=== PATIENT | male | born 1980 | race African-American/Black ===

== ENCOUNTER 2016-07-09 08:17 | Emergency (ER) | payer OTHER, MEDICARE ==
[2016-07-09] MEDS ORDERED: PANTOPRAZOLE SODIUM 40 MG VIAL IV ONE (10:45)
[2016-07-09] MEDS ORDERED: ONDANSETRON HCL INJ/PF 4 MG/2 ML SDV IV ONE (10:46)
[2016-07-09] MEDS ORDERED: MORPHINE SULFATE 10 MG/ML INJ IV ONE (10:46)
--- NOTE | 2016-07-09 10:49 | ER Document Report ---
ED GI/ - General Chief Complaint: Upper Abdominal Pain Stated Complaint: STOMACH AND LEG PAIN Mode of Arrival: Ambulatory Information source: Patient Notes: This is a 36-year-old -[place] male with end-stage renal disease and dialysis dependent who presents with upper abdominal pain. He states that his abdominal pain has been off and on for the past month. However today his pain has intensified and become severe. The pain is located in the epigastric and right upper quadrant area and described as a burning and ripping pain. He is not able he has not been able to eat today. He has had nausea but no vomiting today. He states he last had vomiting about a week ago. His bowel movements have been regular and his last bowel movement was 2 days ago. His any fevers. TRAVEL OUTSIDE OF THE [place] IN LAST 30 DAYS: No - Related Data Allergies/Adverse Reactions: aspirin [Aspirin] Allergy (Severe, Verified 04/17/16 14:47) Anaphylaxis Sulfa (Sulfonamide Antibiotics) Allergy (Severe, Verified 04/17/16 14:47) Anaphylaxis Past Medical History - Social History Smoking Status: Never Smoker Chew tobacco use (# tins/day): No Frequency of alcohol use: None Drug Abuse: None Family History: Reviewed & Not Pertinent Patient has suicidal ideation: No Patient has homicidal ideation: No - Past Medical History Cardiac Medical History: Reports: Hx Hypercholesterolemia, Hx Hypertension Pulmonary Medical History: Reports: Hx Asthma, Hx Bronchitis, Hx Sleep Apnea Neurological Medical History: Denies: Hx Seizures Endocrine Medical History: Reports: Hx Graves' Disease, Hx Hyperthyroidism, Hx Hypothyroidism Renal/ Medical History: Reports: Hx End Stage Renal Disease, Hx Hemodialysis. Denies: Hx Peritoneal Dialysis GI Medical History: Reports: Hx Gastroesophageal Reflux Disease, Hx Hiatal Hernia Musculoskeltal Medical History: Reports Hx Arthritis - hands, Reports Hx Gout Psychiatric Medical History: Reports: Hx Depression Traumatic Medical History: Reports: Hx Fractures - right ankle Past Surgical History: Reports: Hx Kidney (Renal Surgery), Hx Vascular Surgery - AV fistula. Denies: Hx Pacemaker - Immunizations Hx Diphtheria, Pertussis, Tetanus Vaccination: No Hx Pneumococcal Vaccination: 06/02/10 Review of Systems - Review of Systems Notes: REVIEW OF SYSTEMS: CONSTITUTIONAL : Denies fever, chills, or sweats. Denies recent illness. EENT: Denies eye, ear, throat, or mouth pain or symptoms. Denies nasal or sinus congestion. CARDIOVASCULAR: Denies chest pain. RESPIRATORY: Denies cough, cold, or chest congestion. Denies shortness of breath, difficulty breathing, or wheezing. GASTROINTESTINAL: As per history of present illness GENITOURINARY: No dysuria MUSCULOSKELETAL: Denies neck or back pain or joint pain or swelling. SKIN: Denies rash or skin lesions. HEMATOLOGIC : Denies easy bruising or bleeding. LYMPHATIC: Denies swollen, enlarged glands. NEUROLOGICAL: No headache PSYCHIATRIC: Denies anxiety or stress or depression. ALL OTHER SYSTEMS REVIEWED AND NEGATIVE. Physical Exam - Vital signs Vitals: Temp Pulse Resp BP Pulse Ox 98.3 F 90 20 134/74 H 97 07/09/16 08:31 07/09/16 08:31 07/09/16 08:31 07/09/16 08:31 07/09/16 08:31 - Notes Notes: PHYSICAL EXAMINATION: GENERAL: Well-appearing, obese adult male, pleasant and conversant and in no acute distress. HEAD: Atraumatic, normocephalic. EYES: Pupils equal round and reactive to light, extraocular movements intact, sclera anicteric, conjunctiva are normal. ENT: nares patent, oropharynx clear without exudates. Moist mucous membranes. NECK: Normal range of motion, supple without lymphadenopathy LUNGS: Breath sounds clear to auscultation bilaterally and equal. No wheezes rales or rhonchi. HEART: Regular rate and rhythm without murmurs ABDOMEN: Obese, soft, mild tenderness to palpation in the epigastric area, normal active bowel sounds. There is no guarding rebound or rigidity there is no acute abdomen. EXTREMITIES: Normal range of motion NEUROLOGICAL: No gross focal motor or sensory deficits noted PSYCH: Normal mood, normal affect. SKIN: Warm, Dry, normal turgor, no rashes or lesions noted. Course - Re-evaluation Re-evalutation: 07/09/16 14:29 Patient has been resting comfortably in the emergency department has been sleeping every time that I have gone to reevaluate him. He states that his stomach is feeling a little bit better. We reviewed his lab results as well as his CT scan demonstrates a large hiatal hernia. His lipase today is borderline high, however he has not vomited in the past week and his CT does not show evidence of acute pancreatitis. I suspect that his GI symptoms today are related to his hiatal hernia and his GERD. He is already on a PPI for gastroesophageal reflux disease and I will add an H2 beltran. He is instructed to follow up for dialysis tomorrow as scheduled and follow up with his primary care doc we discussed strict return precautions to include fevers persistent vomiting or any worsening symptoms or concerns, he is very coupled with this plan AND drainage. 07/09/16 22:39 - Vital Signs Vital signs: Temp Pulse Resp BP Pulse Ox 98.0 F 85 16 130/70 H 100 07/09/16 14:58 07/09/16 14:58 07/09/16 14:58 07/09/16 14:58 07/09/16 14:58 - Laboratory Result Diagrams: 07/09/16 11:20 07/09/16 11:20 Laboratory results interpreted by me: 07/09/16 07/09/16 11:20 11:20 RBC 3.72 L Hgb 11.5 L Hct 35.1 L RDW 17.1 H Eosinophils % 10.6 H Potassium 5.3 H Chloride 94 L BUN 40 H Creatinine 16.12 H Est GFR ( Amer) 4 L Est GFR (Non-Af Amer) 3 L Glucose 70 L Total Protein 9.0 H Lipase 340.6 H - Diagnostic Test Radiology reviewed: Reports reviewed Discharge - Discharge Clinical Impression: Hiatal hernia with GERD, End stage chronic kidney disease, Dyspepsia Condition: Stable Disposition: HOME, SELF-CARE Additional Instructions: Reflux Disease (GERD) Gastro-Esophageal Reflux Disease (GERD) is caused by stomach acid refluxing back up into the esophagus. The valve at the end of the esophagus may be weak. This is common in persons with a hiatal hernia. GERD symptoms can include indigestion, chest pain, heartburn, or food "sticking." Certain foods, alcohol, and aspirin can make GERD worse. Treatment depends on the severity. Usually, antacids or acid-suppressing medicines are used. When the esophagus is acutely inflamed, the physician will often prescribe membrane-protective drugs such as Carafate. Some patients benefit from medication such as Reglan that tightens the valve at the top of the stomach. Avoid those foods that bring on your symptoms. For many people, these foods are coffee, chocolate, onions, garlic, and carbonated drinks. Don't use alcohol, aspirin, caffeine, or tobacco. Don't eat late at night -- within 4 hours of bedtime. Don't over-eat. If necessary, elevate the head of your bed about 4 inches so that stomach acid will not roll up into your esophagus. Call the doctor if you develop severe chest pain, inability to swallow fluids, fever, or worsening symptoms. ABDOMINAL PAIN: There are many causes of abdominal pain. Pain can mean a serious problem requiring surgery (such as appendicitis). It can also be an innocent problem that goes away on its own (such as a viral infection). Often, time must pass to determine the cause of pain. The physician does not feel that hospitalization is necessary, at present. Things may change within the next 24 hours. Call the doctor or come back for re- examination if any problems occur, such as: (1) Pain that becomes more severe, steady, or becomes concentrated in one specific area. Also, pain that is more severe with movement or coughing. (2) Vomiting that persists or becomes more frequent. (3) Blood in the vomitus, urine, or bowel movements. Blood in the stool may have a tarry or black appearance. (4) Shaking chills or fever greater than 100 degrees F. (5) The abdomen becomes more distended or swollen. (6) Bowel movements cease. (7) Failure to improve as expected. PAIN MEDICATION INJECTION: You have received an injection of a pain medication. You should experience significant pain relief within 45 minutes. This drug is a narcotic - - it will impair your judgement, slow your reaction time and make you sleepy ( as well as relieve your pain). Narcotics also can cause nausea. You should not drive, work with machinery, or perform any task requiring mental alertness until all effects of the medication are gone -- six to eight hours. Do not take any alcohol, or sedatives, and do not take any other medication without checking with your physician. ANTINAUSEA MEDICATION: You have been given a medication to suppress nausea and vomiting. This type of medication can be given as a shot, pill, or suppository. It will usually last for many hours. Pills and shots usually last six to eight hours, suppositories last about 12 hours. For the typical illness, only one or two doses of the medication may be necessary. Mild lightheadedness may occur. This type of medicine can cause drowsiness. Do not drive or operate dangerous machinery while under its influence. Do not mix with alcohol. See your doctor at once if you have muscle spasms or tightness, or uncontrollable motions (particularly of the neck, mouth, or jaw). Persistent vomiting or severe lightheadedness should also be evaluated by the physician. FOLLOW-UP CARE: If you have been referred to a physician for follow-up care, call the physician s office for an appointment as you were instructed or within the next two days. If you experience worsening or a significant change in your symptoms, notify the physician immediately or return to the Emergency Department at any time for re-evaluation. FOLLOW-UP CARE: You should return for re-evaluation in 12 hours. This follow-up visit is important. If you are unable to return, or feel that the return visit is unnecessary, please call us. Prescriptions: Promethazine HCl [Phenergan 25 mg Tablet] 1 tab PO Q6H PRN #15 tablet PRN Reason: Ranitidine HCl [Zantac 150 mg Tablet] 150 mg PO BID #60 tablet Referrals: AICHA HERNANDEZ DO [Primary Care Provider] - Follow up as needed
[2016-07-09 11:49] LABS: ABSOLUTE EOSINOPHILS # (AUTO) 0.5 10^3/uL (0.0-0.6); ABSOLUTE MONOCYTES (AUTO) 0.3 10^3/uL (0.1-1.4); ABSOLUTE NEUT (AUTO) 3.2 10^3/uL (1.7-8.2); BASOPHILS % (AUTO) 0.4 % (0-2); EOSINOPHILS % (AUTO) 10.6 % (0-6); HEMATOCRIT 35.1 % (37.9-51.0); HEMOGLOBIN 11.5 g/dL (13.5-17.0); HGB HCT DIFFERENCE -0.6; LYMPHOCYTES % (AUTO) 19.4 % (13-45); MEAN CORPUSCULAR HEMOGLOBIN 30.9 pg (27.0-33.4); MEAN CORPUSCULAR HGB CONC 32.8 g/dL (32.0-36.0); MEAN CORPUSCULAR VOLUME 94 fl (80-97); MONOCYTES % (AUTO) 5.7 % (3-13); RED BLOOD COUNT 3.72 10^6/uL (4.35-5.55); RED CELL DISTRIBUTION WIDTH 17.1 % (11.5-14.0); SEGMENTED NEUTROPHILS % (AUTO) 63.9 % (42-78); WHITE BLOOD COUNT 5.1 10^3/uL (4.0-10.5)
[2016-07-09 12:36] LABS: ALANINE AMINOTRANSFERASE 21 U/L (21-72); ALBUMIN 4.8 g/dL (3.5-5.0); ALKALINE PHOSPHATASE 64 U/L (38-126); ANION GAP 19 (5-19); ASPARTATE AMINO TRANSFERASE 38 U/L (17-59); BILIRUBIN,TOTAL 0.7 mg/dL (0.2-1.3); BLOOD UREA NITROGEN 40 mg/dL (7-20); CALCIUM 9.5 mg/dL (8.4-10.2); CARBON DIOXIDE 29 mmol/L (22-30); CHLORIDE 94 mmol/L (98-107); GLUCOSE 70 mg/dL (75-110); LIPASE 340.6 U/L (23-300); POTASSIUM 5.3 mmol/L (3.6-5.0); SODIUM 142.4 mmol/L (137-145)
[2016-07-09 12:37] LABS: CREATININE RESULT 16.12 mg/dL (0.52-1.25)
[2016-07-09] MEDS ORDERED: METOCLOPRAMIDE HCL ORAL SOLN 10 MG/10 ML UDCUP PO ONE (14:05)
[2016-07-09] MEDS ORDERED: LIDOCAINE 2% VISCOUS SOLN 20 ML UDCUP PO ONE (14:05)
[2016-07-09] MEDS ORDERED: MAG HYDROX/AL HYDROX/SIMETH SUSP 30 ML UDCUP PO ONE (14:05)
[2016-07-09 15:00] VITALS: BP 130/70
== END 2016-07-09 14:59 | disposition home or self-care (01) ==
LOC: ER 08:17
DX: K44.9 Diaphragmatic hernia without obstruction or gangrene (principal); K21.9 Gastro-esophageal reflux disease without esophagitis; N18.6 End stage renal disease; R10.13 Epigastric pain; R10.10 Upper abdominal pain, unspecified; M79.606 Pain in leg, unspecified
CPT/HCPCS: 99284; 96374; 96375; 36415; 83690; 85025; 80053; 74176; J3490; S0164; J2405

== ENCOUNTER → 2016-07-29 | Outpatient (CLI) | payer MEDICARE ==
--- NOTE | 2016-07-30 12:21 | XCELERA REPORT ---
[address] [address] Lower Extremity Venous Evaluation Name: CLAUDIA ALLRED Age: 36 yrs Gender: Male : 1980 Patient Status: Outpatient Patient Location: Study Date: 07/29/2016 04:26 PM Procedure: Color flow and duplex imaging bilaterally of the veins of the lower extremities as well as the Common Femoral veins. Reason For Study: PAIN, SWELLING Ordering Physician: PETRONA COATES Performed By: Love Mendoza Right Sided Venous Evaluation Normal vessel filling wall to wall, compression and augmentation as well as Colour flow down to the infrageniculate veins. Left Sided Venous Evaluation Normal vessel filling wall to wall, compression and augmentation as well as Colour flow down to the infrageniculate veins. Interpretation Summary No duplex evidence of DVT or obstruction in the bilateral lower extremities. : PETRONA COATES > Cas Mcpherson
== END ==
LOC: SP 16:20
PROVIDERS: ATTEND Nurse Practitioner Family
DX: R22.40 Localized swelling, mass and lump, unspecified lower limb (principal)
CPT/HCPCS: 93970

== ENCOUNTER 2016-09-12 08:24 | Emergency (ER) | payer MEDICARE ==
--- NOTE | 2016-09-12 09:19 | ER Document Report ---
ED Hip Pain/Injury - General Chief Complaint: Hip Pain Stated Complaint: FALL/RIGHT SIDE HIP PAIN Time seen by provider: 09:15 Mode of Arrival: Ambulatory Information source: Patient Notes: 36-year-old man presents to ED for pain in his right hip and right calf. He states he fell last night his right and didn't feel bad and then this morning the hip feels much worse. He also has a knot was painful to the back of his right calf. TRAVEL OUTSIDE OF THE [place] IN LAST 30 DAYS: No - HPI Patient complains to provider of: Injury, Pain, Flank, Hip, Other - Painful knot in right calf Occurred: Yesterday Where: Home Onset/Duration: Sudden Quality of pain: Burning, Pressure, Sharp Severity: Severe Pain Level: 5 Context: Fell/tripped Symptoms prior to fall: None Symptoms since fall: None Skin Color: Normal Rotation of extremity: None Pain with palpation of the pelvis: Yes Associated Symptoms: None - Related Data Allergies/Adverse Reactions: aspirin [Aspirin] Allergy (Severe, Verified 09/12/16 09:45) Anaphylaxis Sulfa (Sulfonamide Antibiotics) Allergy (Severe, Verified 09/12/16 09:45) Anaphylaxis Past Medical History - General Information source: Patient - Social History Smoking Status: Never Smoker Cigarette use (# per day): No Chew tobacco use (# tins/day): No Smoking Education Provided: No Frequency of alcohol use: None Drug Abuse: None Occupation: disabled Lives with: Family Family History: Arthritis, CAD, COPD, CVA, Hyperlipidemia, Hypertension, Malignancy - Past Medical History Cardiac Medical History: Reports: Hx Hypercholesterolemia, Hx Hypertension Pulmonary Medical History: Reports: Hx Asthma, Hx Bronchitis, Hx Sleep Apnea EENT Medical History: Reports: None Neurological Medical History: Reports: None Endocrine Medical History: Reports: Hx Hypothyroidism Renal/ Medical History: Reports: Hx End Stage Renal Disease, Hx Hemodialysis Malignancy Medical History: Reports None GI Medical History: Reports: Hx Gastroesophageal Reflux Disease, Hx Hiatal Hernia, Hx Colonoscopy Musculoskeltal Medical History: Reports Hx Arthritis - hands, Reports Hx Gout, Reports Hx Musculoskeletal Deformity - Degenerative joint disease Skin Medical History: Reports None Psychiatric Medical History: Reports: None, Hx Depression Traumatic Medical History: Reports: Hx Fractures - right ankle Infectious Medical History: Reports: None Past Surgical History: Reports: Hx Kidney (Renal Surgery), Hx Vascular Surgery - AV fistula - Immunizations Hx Diphtheria, Pertussis, Tetanus Vaccination: No Hx Pneumococcal Vaccination: 06/02/10 Review of Systems - Review of Systems Constitutional: No symptoms reported EENT: No symptoms reported Cardiovascular: No symptoms reported Respiratory: No symptoms reported Gastrointestinal: No symptoms reported Genitourinary: No symptoms reported Male Genitourinary: No symptoms reported Musculoskeletal: Other - Right hip pain and knot in the right back of the calf Skin: No symptoms reported Hematologic/Lymphatic: No symptoms reported Neurological/Psychological: No symptoms reported -: Yes All other systems reviewed and negative Physical Exam - Vital signs Vitals: Temp Pulse Resp BP Pulse Ox 98.7 F 95 16 114/66 94 09/12/16 08:29 09/12/16 08:29 09/12/16 08:29 09/12/16 08:29 09/12/16 08:29 Interpretation: Normal - General General appearance: Appears well, Alert - HEENT Head: Normocephalic, Atraumatic Eyes: Normal Pupils: PERRL - Respiratory Respiratory status: No respiratory distress Chest status: Nontender Breath sounds: Normal Chest palpation: Normal - Cardiovascular Rhythm: Regular Heart sounds: Normal auscultation Murmur: No - Abdominal Inspection: Normal Distension: No distension Bowel sounds: Normal Tenderness: Nontender Organomegaly: No organomegaly - Back Back: Normal, Nontender - Extremities General upper extremity: Normal inspection, Nontender, Normal color, Normal ROM , Normal temperature General lower extremity: Normal temperature, Normal weight bearing Hip: Tender, Pain with ROM. No: Abrasion, Deformity, Dislocation, Ecchymosis, Instability, Laceration, Unable to bear weight, Other Calf: Tender - Painful knot to the back of the right calf, Other - Neurological Neuro grossly intact: Yes Cognition: Normal Orientation: AAOx4 Mena Coma Scale Eye Opening: Spontaneous Mena Coma Scale Verbal: Oriented Mena Coma Scale Motor: Obeys Commands Monroe Coma Scale Total: 15 Speech: Normal Motor strength normal: LUE, RUE, LLE, RLE Sensory: Normal - Psychological Associated symptoms: Normal affect, Normal mood - Skin Skin Temperature: Warm Skin Moisture: Dry Skin Color: Normal Course - Re-evaluation Re-evalutation: 09/12/16 11:32 Discussed x-ray and ultrasound with patient. Preliminary Doppler is negative for DVT we'll wait for final results before discharge and patient will be discharged home on a small prescription of Percocet. 09/12/16 16:55 - Vital Signs Vital signs: Temp Pulse Resp BP Pulse Ox 97.9 F 73 18 130/80 H 95 09/12/16 11:30 09/12/16 11:52 09/12/16 11:52 09/12/16 11:52 09/12/16 11:52 - Diagnostic Test Radiology reviewed: Image reviewed, Reports reviewed Discharge - Discharge Clinical Impression: superficial blood clots right calf Fall at home Qualifiers: Encounter type: initial encounter Qualified Code(s): W19.XXXA - Unspecified fall, initial encounter Contusion of right hip Qualifiers: Encounter type: initial encounter Qualified Code(s): S70.01XA - Contusion of right hip, initial encounter Chronic pain Qualifiers: Chronic pain type: other chronic pain Qualified Code(s): G89.29 - Other chronic pain Condition: Stable Disposition: HOME, SELF-CARE Instructions: Family Physicians / Practices Additional Instructions: CONTUSION: Your injury has resulted in a contusion -- a crushing of the deep tissues. No injury to important structures was detected during the physician's exam. Contusions vary in the amount of pain they cause, and in the length of time required for healing. Typically, the area will become bruised, and will remain painful to touch for two or three weeks. However, most patients are back to working and playing within a few days. After the initial period of rest and cold-packs, your symptoms (together with the doctor's recommendations) will determine how rapidly you can get back to full activity. Usually this means "do what feels okay, but don't do things that hurt." If re-examination was recommended, it's important to follow up as instructed. Call the doctor or return any time if pain increases, if swelling becomes severe, if you develop numbness or weakness in an injured extremity, or if any other alarming symptoms occur. ICE PACKS: Apply ice packs frequently against the painful area. Many different schedules are recommended, such as "20 minutes on, 20 minutes off" or "one hour ice, two hours rest." If you need to work, you may need to go longer between ice treatments. You should plan to have the area ice packed AT LEAST one fourth of the time. The ice should be applied over the wrap, tape, or splint, or over a layer of cloth -- not directly against the skin. Some ice bags have a built-in cloth and can be put directly on the skin. WARM PACKS: After approximately two days, apply gentle heat (such as a heating pad or hot water bottle) for about 20 to 30 minutes about every two hours -- at least four times daily. Warmth and elevation will help you make a more rapid recovery , and will ease the pain considerably. Do not use HOT heat, and never apply heat for longer than 30 minutes. The continuous heat can invisibly damage skin and muscles -- even when no burn is seen on the surface. Damaged muscles can make you MORE sore. ORAL NARCOTIC MEDICATION: You have been given a prescription for pain control. This medication is a narcotic. It's best taken with food, as nausea can result if taken on an empty stomach. Don't operate machinery or drive within six hours of taking this medication. Do not combine this medicine with alcohol, or with any medication which can cause sedation (such as cold tablets or sleeping pills) unless you get permission from the physician. Narcotics tend to cause constipation. If possible, drink plenty of fluids and eat a diet high in fiber and fruits. Chronic Pain Control Stress, inactivity, and depression make pain more severe regardless of the cause of the pain. Stress and poor physical condition can cause pain such as headaches and backache. Relaxation: Rest in a quiet place with your eyes closed for 20 minutes twice daily. Concentrate on a pleasant image, or simply "feel" your breathing. Clear your mind. Stress management: Deal with your "stressors." Either take action, or eliminate the stressor from your life. Don't let things hang over you. Accept those things you can't change. Nutrition: Eat small, balanced meals -- don't skip, don't overeat. Meals should be high-carbohydrate, low-sugar, low-fat. Exercise: Exercise helps painful conditions and eases stress. Get 30 minutes of moderate exercise, five days a week. Do an activity that does not flare your pain. Precautions: Pain which continues to disrupt daily activities, or which changes in nature, requires a medical evaluation. Pain Clinic referral is available. We do not manage chronic pain in the Emergency Department. We will try to appropriately help you through an acute flare of your chronic painful condition , but for on-going chronic pain that does not improve, you will need to see your private doctor or paint grinder. We do not provide repeated medication management of chronic painful conditions. If you wish, we can provide the name of local pain management physicians. FOLLOW-UP CARE: If you have been referred to a physician for follow-up care, call the physician s office for an appointment as you were instructed or within the next two days. If you experience worsening or a significant change in your symptoms, notify the physician immediately or return to the Emergency Department at any time for re-evaluation. Prescriptions: Oxycodone HCl/Acetaminophen [Percocet 5-325 mg Tablet] 1 tab PO TIDP PRN #14 tablet PRN Reason: Referrals: AICHA HERNANDEZ DO [Primary Care Provider] - Follow up as needed
[2016-09-12] MEDS ORDERED: OXYCODONE-ACETAMINOPHEN 5-325 MG TABLET PO ONE (11:25)
[2016-09-12 11:58] VITALS: BP 130/80
== END 2016-09-12 11:54 | disposition home or self-care (01) ==
LOC: ER 08:24
DX: I82.811 Embolism and thrombosis of superficial veins of right lower extremity (principal); S70.01XA Contusion of right hip, initial encounter; G89.29 Other chronic pain; M25.551 Pain in right hip; W19.XXXA Unspecified fall, initial encounter; Y92.009 Unspecified place in unspecified non-institutional (private) residence as the place of occurrence of the external cause; E78.00 Pure hypercholesterolemia, unspecified; E03.9 Hypothyroidism, unspecified; I12.0 Hypertensive chronic kidney disease with stage 5 chronic kidney disease or end stage renal disease; N18.6 End stage renal disease; Z88.6 Allergy status to analgesic agent; Z88.2 Allergy status to sulfonamides; K21.9 Gastro-esophageal reflux disease without esophagitis
CPT/HCPCS: 99284; 93971; 73502; A9270

== ENCOUNTER 2016-10-25 08:01 | Day surgery (SDC) | payer MEDICARE ==
[~2016-10-25 08:01] MED LIST: DIPHENHYDRAMINE HCL 50 MG/ML VIAL ONE; EPINEPHRINE INJ 1 MG/10 ML DISP.SYRIN ONE; FLUMAZENIL INJ 0.5 MG/5 ML VIAL IV ONE; GLUCAGON,HUMAN RECOMB 1 MG INJ ONE; MIDAZOLAM 2 MG/2 ML INJ ONE; NALOXONE HCL INJ/PF 0.4 MG/1 ML SDV ONE; ONDANSETRON HCL INJ/PF 4 MG/2 ML SDV ONE
[2016-10-25] MEDS: FENTANYL CITRATE INJ/PF 100 MCG/2 ML AMPUL ONE ×2 (09:02→09:04)
--- NOTE | 2016-10-25 09:23 | Operative Report ---
Operative Report DATE OF SURGERY: 10/25/16 Operative Report: The risks benefits and alternatives of the procedure explained to the patient in detail and informed consent is obtained. A GIF Olympus video scope was inserted into the patient's mouth and hypopharynx, the esophagus is identified intubated and insufflated, the scope was then advanced through the esophagus stomach and duodenum, retroflexion maneuver is done, the esophagus stomach and first and second portions of the duodenum examined PREOPERATIVE DIAGNOSIS: Epigastric pain. Regurgitation. Dysphagia POSTOPERATIVE DIAGNOSIS: Esophagitis with mild stricture noted. Hiatal hernia. Gastritis status post biopsy with Helicobacter pylori OPERATION: EGD with biopsy SURGEON: BRANDY BEAR ANESTHESIA: Moderate Sedation - 4 mg of Versed, 50 mcg of fentanyl. Conscious sedation monitoring for 30 minutes. TISSUE REMOVED OR ALTERED: Gastric specimen obtained to rule out Helicobacter pylori COMPLICATIONS: None. ESTIMATED BLOOD LOSS: None. INTRAOPERATIVE FINDINGS: As described above. No ulcers noted. PROCEDURE: Patient tolerated procedure well. No immediate postprocedure complications are noted. Patient discharged in good condition. Discharge date 10/25/2016. Discharge diet: Regular. Discharge activity: Regular. 2-3 week follow-up to discuss findings. We will wait on biopsies. Patient is instructed to call the office or proceed to the emergency room should there be any further problems or questions.
[2016-10-25 10:50] VITALS: BP 140/89
== END 2016-10-25 10:35 | disposition home or self-care (01) ==
LOC: END 08:01
PROVIDERS: ATTEND Internal Medicine Gastroenterology
PROC: 0DB68ZX Excision of Stomach, Via Natural or Artificial Opening Endoscopic, Diagnostic (ICD-10-PCS; principal; 2016-10-25 08:15)
DX: K92.1 Melena (principal); K29.50 Unspecified chronic gastritis without bleeding; K21.0 Gastro-esophageal reflux disease with esophagitis; K22.2 Esophageal obstruction; K44.9 Diaphragmatic hernia without obstruction or gangrene; I12.0 Hypertensive chronic kidney disease with stage 5 chronic kidney disease or end stage renal disease; N18.5 Chronic kidney disease, stage 5; M19.90 Unspecified osteoarthritis, unspecified site; M10.9 Gout, unspecified; M47.9 Spondylosis, unspecified; G43.909 Migraine, unspecified, not intractable, without status migrainosus; Z79.899 Other long term (current) drug therapy; Z99.2 Dependence on renal dialysis
CPT/HCPCS: 43239; 88305 ×2; J2250; J3010; J0171; J1200; J1610; J2310; J2405; J3490

== ENCOUNTER → 2016-11-12 | Outpatient (CLI) | payer MEDICARE ==
--- NOTE | 2016-11-12 13:57 | RADIOLOGY REPORT (SQ) ---
EXAM DESCRIPTION: NM HIDA SCAN WITH CCK COMPLETED DATE/TIME: 11/12/2016 1:07 pm REASON FOR STUDY: RUQ ABDOMINAL PAIN R10.11 RIGHT UPPER QUADRANT PAIN COMPARISON: None. RADIONUCLIDE AND DOSE: DOSAGE RADIONUCLIDE: 5.24 millicuries Tc99m Mebrofenin. DOSAGE CCK: 2.5 micrograms. DOSAGE MORPHINE: Not required. The route of agent administration: Intravenous TECHNIQUE: Serial imaging right upper quadrant up to 60 minutes following injection of radionuclide. CCK injected after gallbladder visualized. LIMITATIONS: None. FINDINGS: LIVER: Normal visualization without areas of photopenia. INTRA AND EXTRAHEPATIC BILE DUCTS: Normal accumulation of activity. GALLBLADDER: Normal visualization. Calculated Ejection Fraction of 11%. Below the normal value of 35 % or greater. PHYSICAL RESPONSE: Patients presenting complaint was reproduced. OTHER: No other significant finding. IMPRESSION: LOW GALLBLADDER EJECTION FRACTION. EVIDENCE FOR BILIARY DYSKINESIS. NO CYSTIC OR COMMO N DUCT OBSTRUCTION. TECHNICAL DOCUMENTATION: JOB ID: [id number] [employer]- All Rights Reserved
== END ==
LOC: RAD 09:37
PROVIDERS: ATTEND Family Medicine
DX: R10.11 Right upper quadrant pain (principal)
CPT/HCPCS: 78227; A9537; Q9969; J2805

== ENCOUNTER → 2016-12-10 | Outpatient (CLI) | payer MEDICARE, MEDICAID ==
--- NOTE | 2016-12-10 14:28 | RADIOLOGY REPORT (SQ) ---
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 RADIONUCLIDE AND DOSE: 21.7 millicuries Tc-99m Sestamibi. The route of agent administration: Intravenous ADDITIONAL DRUGS AND DOSES: None. TECHNIQUE: Early and delayed images of the neck acquired following radionuclide administration. LIMITATIONS: None. FINDINGS: Thyroid: There is minimal uptake in the thyroid gland on immediate images. Parathyroid: No retained activity in the thyroid or elsewhere in the neck to indicate a parathyroid a denoma. Other: No other significant findings. IMPRESSION: Limited uptake within the thyroid gland. No evidence of adenoma. TECHNICAL DOCUMENTATION: JOB ID: [id number] [employer]- All Rights Reserved
== END ==
LOC: RAD 08:31
PROVIDERS: ATTEND Surgery
DX: N25.81 Secondary hyperparathyroidism of renal origin (principal)
CPT/HCPCS: 78070; A9500; Q9969

== ENCOUNTER 2017-02-25 11:38 | Day surgery (SDC) | payer MEDICARE, MEDICAID ==
[~2017-02-25 11:38] MED LIST changes: +FENTANYL CITRATE INJ/PF 100 MCG/2 ML AMPUL ONE; -FLUMAZENIL INJ 0.5 MG/5 ML VIAL IV ONE; +FLUMAZENIL INJ 0.5 MG/5 ML VIAL ONE; -MIDAZOLAM 2 MG/2 ML INJ ONE
[2017-02-25] MEDS: FENTANYL CITRATE INJ/PF 100 MCG/2 ML AMPUL ONE ×2 (12:20→12:25)
[2017-02-25] MEDS: MIDAZOLAM 2 MG/2 ML INJ ONE ×2 (12:21→12:26)
--- NOTE | 2017-02-25 13:09 | Operative Report ---
Operative Report DATE OF SURGERY: 02/25/17 Operative Report: The risks benefits and alternatives of the procedure explained to the patient in detail and informed consent is obtained.A GIF Olympus video scope was inserted into the patient's mouth and hypopharynx, the esophagus is identified intubated and insufflated, the scope was then advanced through the esophagus stomach and duodenum, retroflexion maneuver is done, the esophagus stomach and first and second portions of the duodenum examined PREOPERATIVE DIAGNOSIS: Follow-up on distal esophageal thickening POSTOPERATIVE DIAGNOSIS: Area of distal esophagus looks a little bit thickened and irregular biopsies are obtained. There appears to be a little bit of healing. Continued gastritis biopsies obtained serology to rule out H. pylori OPERATION: EGD with biopsy SURGEON: BRANDY BEAR ANESTHESIA: Moderate Sedation - 3 mg of Versed, 75 mcg of fentanyl. Conscious sedation monitoring time 30 minutes. TISSUE REMOVED OR ALTERED: Gastritis, gastric mucosal specimen obtained. Distal esophageal specimen obtained COMPLICATIONS: None. ESTIMATED BLOOD LOSS: None. INTRAOPERATIVE FINDINGS: As described above. PROCEDURE: Patient tolerated procedure well. No immediate postprocedure complications are noted. Patient discharged in good condition. Discharge date 02/25/2017 Discharge diet: Regular. Discharge activity: Regular. 2-3 week follow-up to discuss findings Patient is instructed to call the office or proceed to the emergency room should there be any further problems or questions. We will follow-up on biopsies. If biopsies are abnormal further recommendations to follow.
[2017-02-25 13:43] VITALS: BP 112/80
== END 2017-02-25 13:40 | disposition home or self-care (01) ==
LOC: END 11:38
PROVIDERS: ATTEND Internal Medicine Gastroenterology
PROC: 0DB58ZX Excision of Esophagus, Via Natural or Artificial Opening Endoscopic, Diagnostic (ICD-10-PCS; 2017-02-25)
PROC: 0DB68ZX Excision of Stomach, Via Natural or Artificial Opening Endoscopic, Diagnostic (ICD-10-PCS; principal; 2017-02-25 12:00)
DX: K22.8 Other specified diseases of esophagus (principal); K29.70 Gastritis, unspecified, without bleeding; Z88.2 Allergy status to sulfonamides
CPT/HCPCS: 43239; 88305 ×2; J2250; J3010; J0171; J1200; J1610; J2310; J2405; J3490

== ENCOUNTER 2017-03-06 10:02 | Day surgery (SDC) | payer MEDICARE, MEDICAID ==
[2017-03-06] MEDS ORDERED: PROPOFOL INJ 200 MG/20 ML VIAL IV ONE (11:37)
[2017-03-06] MEDS ORDERED: ONDANSETRON HCL INJ/PF 4 MG/2 ML SDV ONE (13:02)
[2017-03-06] MEDS ORDERED: MORPHINE SULFATE 10 MG/ML INJ IV PRN (13:29)
[2017-03-06] MEDS ORDERED: PROMETHAZINE HCL INJ 25 MG/1 ML VIAL IV PRN ×2 (13:29)
[2017-03-06] MEDS ORDERED: FENTANYL CITRATE INJ/PF 100 MCG/2 ML AMPUL IV PRN ×3 (13:29)
[2017-03-06] MEDS ORDERED: OXYCODONE-ACETAMINOPHEN 5-325 MG TABLET PO PRN ×2 (13:29)
[2017-03-06] MEDS ORDERED: MEPERIDINE HCL/PF INJ 25 MG/1 ML DISP.SYRIN IV PRN (13:29)
[2017-03-06] MEDS ORDERED: DIPHENHYDRAMINE HCL 50 MG/ML VIAL IV PRN (13:29)
--- NOTE | 2017-03-06 15:15 | Operative Report ---
Operative Report DATE OF SURGERY: 03/06/17 Operative Report: The risks, benefits and alternatives of the procedure including risks of bleeding, perforation requiring surgery are explained to the patient detail and informed consent is obtained. Patient was taken to the operating room and placed in the left, lateral decubital position. Timeout was called. Propofol medications administered. A rectal examination is done which did not reveal any masses, tears or fissures. An Olympus videoscope was inserted to the patient's rectum. It is carefully advanced all the way to the cecum. The cecum was identified by the usual anatomical landmarks including the ileocecal valve as well as the appendiceal office. Photodocumentation is obtained. Scope was then sequentially pulled back via the various segments of the colon including the ascending colon, hepatic flexure, transverse colon, splenic flexure, descending colon finding to the rectosigmoid portions of the colon. Retroflexion maneuvers performed. PREOPERATIVE DIAGNOSIS: Rectal bleeding POSTOPERATIVE DIAGNOSIS: Internal hemorrhoids. Mild right-sided inflammation status post biopsy OPERATION: Colonoscopy with biopsy SURGEON: BRANDY BEAR ANESTHESIA: LMAC TISSUE REMOVED OR ALTERED: Right side colon Specimen obtained COMPLICATIONS: None. ESTIMATED BLOOD LOSS: None. INTRAOPERATIVE FINDINGS: As noted above. PROCEDURE: Patient tolerated procedure well. No immediate postprocedure complications are noted. Patient discharged in good condition. Discharge date 03/06/2017. Discharge diet: Regular. Discharge activity: Regular. 2-3 week follow-up to discuss findings. We will wait on pathology. Pathology. Patient is instructed to call the office or proceed to the emergency room should there be any further problems or questions.
[2017-03-06 15:52] VITALS: BP 126/83
== END 2017-03-06 15:15 | disposition home or self-care (01) ==
LOC: OROUT 10:02
PROVIDERS: ATTEND Internal Medicine Gastroenterology
PROC: 0DBF8ZX Excision of Right Large Intestine, Via Natural or Artificial Opening Endoscopic, Diagnostic (ICD-10-PCS; principal; 2017-03-06 12:00)
DX: K92.1 Melena (principal); K64.8 Other hemorrhoids; K52.9 Noninfective gastroenteritis and colitis, unspecified; I10 Essential (primary) hypertension; G43.909 Migraine, unspecified, not intractable, without status migrainosus; E66.9 Obesity, unspecified; M10.9 Gout, unspecified; K21.9 Gastro-esophageal reflux disease without esophagitis; M19.90 Unspecified osteoarthritis, unspecified site; E03.9 Hypothyroidism, unspecified; I12.0 Hypertensive chronic kidney disease with stage 5 chronic kidney disease or end stage renal disease; N18.5 Chronic kidney disease, stage 5; Z88.6 Allergy status to analgesic agent; Z88.2 Allergy status to sulfonamides; Z68.42 Body mass index [BMI] 45.0-49.9, adult; Z79.899 Other long term (current) drug therapy; Z99.2 Dependence on renal dialysis
CPT/HCPCS: 45380; 36415; 84132; 88305 ×2; J2405; J2704; 810

== ENCOUNTER 2017-03-10 00:18 | Emergency (ER) | payer MEDICARE, MEDICAID ==
--- NOTE | 2017-03-10 02:33 | ER Document Report ---
ED General - General Chief Complaint: Nausea/Vomiting Stated Complaint: WEAKNESS Time Seen by Provider: 03/10/17 01:56 Notes: Patient is a 37-year-old male with past medical history of end-stage renal disease with dialysis dependence who presents with 12 hours of vomiting and diarrhea. States that he has been unable to tolerate oral intake since the onset of the vomiting. He does describe this as being a persistent nausea with vomiting of the contents of what he tried to eat or drink. States his symptoms are worsened after he ate seafood today. He has not tried anything to improve his symptoms. No known sick contacts. Denies any recent history of similar illness. He denies any focal abdominal pain, chest pain, shortness of breath or syncope. No fever. He has had repeated watery bowel movements today. Patient is due for dialysis within the next 4-5 hours. He has not seen his primary care doctor regarding today's concerns. TRAVEL OUTSIDE OF THE [place] IN LAST 30 DAYS: No - Related Data Allergies/Adverse Reactions: aspirin [Aspirin] Allergy (Severe, Verified 02/25/17 11:51) Anaphylaxis Sulfa (Sulfonamide Antibiotics) Allergy (Severe, Verified 02/25/17 11:51) Anaphylaxis Past Medical History - General Information source: Patient - Social History Smoking Status: Never Smoker Frequency of alcohol use: None Drug Abuse: None Family History: Arthritis, CAD, COPD, CVA, Hyperlipidemia, Hypertension, Malignancy Patient has suicidal ideation: No Patient has homicidal ideation: No - Past Medical History Cardiac Medical History: Reports: Hx Hypercholesterolemia, Hx Hypertension Denies: Hx Coronary Artery Disease, Hx Heart Attack Pulmonary Medical History: Reports: Hx Asthma, Hx Bronchitis, Hx Sleep Apnea Denies: Hx COPD, Hx Pneumonia Neurological Medical History: Denies: Hx Cerebrovascular Accident, Hx Seizures Endocrine Medical History: Reports: Hx Hypothyroidism Renal/ Medical History: Reports: Hx End Stage Renal Disease, Hx Hemodialysis, Hx Peritoneal Dialysis GI Medical History: Reports: Hx Gastroesophageal Reflux Disease, Hx Hiatal Hernia, Hx Colonoscopy Musculoskeltal Medical History: Reports Hx Arthritis - hands, HIPS, Reports Hx Gout, Reports Hx Musculoskeletal Deformity - Degenerative joint disease Psychiatric Medical History: Reports: Hx Depression Traumatic Medical History: Reports: Hx Fractures - right ankle Past Surgical History: Reports: Hx Kidney (Renal Surgery), Hx Vascular Surgery - AV fistula - Immunizations Hx Diphtheria, Pertussis, Tetanus Vaccination: No Hx Pneumococcal Vaccination: 06/02/10 Review of Systems - Review of Systems Notes: Constitutional: Negative for fever. HENT: Negative for sore throat. Eyes: Negative for visual changes. Cardiovascular: Negative for chest pain. Respiratory: Negative for shortness of breath. Gastrointestinal: Positive for vomiting and diarrhea Genitourinary: Negative for dysuria. Musculoskeletal: Negative for back pain. Skin: Negative for rash. Neurological: Negative for headaches, weakness or numbness. 10 point ROS negative except as marked above and in HPI. Physical Exam - Vital signs Vitals: Temp Pulse Resp BP Pulse Ox 98.3 F 99 22 H 133/86 H 97 03/10/17 00:54 03/10/17 00:54 03/10/17 00:54 03/10/17 00:54 03/10/17 00:54 Interpretation: Normal Notes: PHYSICAL EXAMINATION: GENERAL: Well-appearing, well-nourished and in no acute distress. HEAD: Atraumatic, normocephalic. EYES: Pupils equal round and reactive to light, extraocular movements intact, sclera anicteric, conjunctiva are normal. ENT: nares patent, oropharynx clear without exudates. Moderately dry mucous membranes. NECK: Normal range of motion, supple without lymphadenopathy LUNGS: Breath sounds clear to auscultation bilaterally and equal. No wheezes rales or rhonchi. HEART: Regular rate and rhythm without murmurs ABDOMEN: Obese abdomen. Soft, nontender, normoactive bowel sounds. No guarding , no rebound. No masses appreciated. EXTREMITIES: Normal range of motion, trace edema in the bilateral lower extremities is equal and symmetric. No cyanosis. NEUROLOGICAL: No focal neurological deficits. Moves all extremities spontaneously and on command. PSYCH: Normal mood, normal affect. SKIN: Warm, Dry, normal turgor, no rashes or lesions noted. Course - Re-evaluation Re-evalutation: 03/10/17 02:32 Presentation of an overall well-appearing patient in no acute distress with complaints of nausea, vomiting, diarrhea. This is consistent with likely viral gastroenteritis. Patient has no abdominal tenderness on exam and specifically no tenderness in the RLQ, LLQ, RUQ. Overall well hydrated on exam. Able to tolerate oral intake here in the emergency department. Low clinical suspicion for any acute life-threatening etiology based on exam and history including acute cholecystitis, SBO, appendicitis, nephrolithiasis, or pylonephritis. CMP without evidence of acute hepatitis. Patient is a dialysis patient and laboratories do show mild hyperkalemia at 6.2. No EKG changes. Patient is due for dialysis less than 3 hours from time of obtaining his labs and I have informed him of the need for dialysis as scheduled due to his hyperkalemia. At this time will discharge with return precautions and follow-up recommendations. Verbal discharge instructions given a the bedside and opportunity for questions given. Medication warnings reviewed. Patient is in agreement with this plan and has verbalized understanding of return precautions and the need for primary care follow-up in the next 24-72 hours. - Vital Signs Vital signs: Temp Pulse Resp BP Pulse Ox 98.3 F 99 14 109/81 96 03/10/17 00:54 03/10/17 00:54 03/10/17 03:11 03/10/17 03:11 03/10/17 03:11 - Laboratory Result Diagrams: 03/10/17 02:27 03/10/17 02:27 Laboratory results interpreted by me: 03/10/17 03/10/17 02:27 02:27 RBC 3.57 L Hgb 11.5 L Hct 34.3 L RDW 18.4 H Seg Neutrophils % 80.7 H Lymphocytes % 6.7 L Eosinophils % 7.5 H Potassium 6.2 H* Chloride 97 L Anion Gap 21 H BUN 40 H Creatinine 15.45 H Est GFR ( Amer) 4 L Est GFR (Non-Af Amer) 4 L Direct Bilirubin 0.7 H AST 16 L Total Protein 9.0 H Albumin 5.3 H Discharge - Discharge Clinical Impression: Hyperkalemia, Vomiting and diarrhea Condition: Good Disposition: HOME, SELF-CARE Additional Instructions: Your symptoms are likely due to a viral illness and should resolve in the next several days. Continue to stay hydrated with plenty of solution such as Gatorade or Pedialyte. You are being sent home with Zofran to take as needed for nausea and vomiting. Please return if you develop severe abdominal pain, pass out, become unable to tolerate any oral fluids for 12 more hours, or any other symptoms that are concerning to you. Referrals: AICHA HERNANDEZ, [Primary Care Provider] - Follow up as needed
[2017-03-10] MEDS ORDERED: ONDANSETRON HCL INJ/PF 4 MG/2 ML SDV IV ONE (02:35)
[2017-03-10 02:37] LABS: ABSOLUTE EOSINOPHILS # (AUTO) 0.6 10^3/uL (0.0-0.6); ABSOLUTE LYMPHOCYTES (AUTO) 0.5 10^3/uL (0.5-4.7); ABSOLUTE MONOCYTES (AUTO) 0.3 10^3/uL (0.1-1.4); ABSOLUTE NEUT (AUTO) 6.1 10^3/uL (1.7-8.2); BASOPHILS % (AUTO) 0.6 % (0-2); EOSINOPHILS % (AUTO) 7.5 % (0-6); HEMATOCRIT 34.3 % (37.9-51.0); HEMOGLOBIN 11.5 g/dL (13.5-17.0); HGB HCT DIFFERENCE 0.2; LYMPHOCYTES % (AUTO) 6.7 % (13-45); MEAN CORPUSCULAR HEMOGLOBIN 32.2 pg (27.0-33.4); MEAN CORPUSCULAR HGB CONC 33.4 g/dL (32.0-36.0); MEAN CORPUSCULAR VOLUME 96 fl (80-97); MONOCYTES % (AUTO) 4.5 % (3-13); RED BLOOD COUNT 3.57 10^6/uL (4.35-5.55); RED CELL DISTRIBUTION WIDTH 18.4 % (11.5-14.0); SEGMENTED NEUTROPHILS % (AUTO) 80.7 % (42-78); WHITE BLOOD COUNT 7.6 10^3/uL (4.0-10.5)
[2017-03-10 02:51] LABS: ALANINE AMINOTRANSFERASE 25 U/L (21-72); ALBUMIN 5.3 g/dL (3.5-5.0); ALKALINE PHOSPHATASE 96 U/L (38-126); ASPARTATE AMINO TRANSFERASE 16 U/L (17-59); BILIRUBIN,DIRECT 0.7 mg/dL (0.0-0.4); BILIRUBIN,TOTAL 0.7 mg/dL (0.2-1.3); BLOOD UREA NITROGEN 40 mg/dL (7-20); CARBON DIOXIDE 26 mmol/L (22-30); CHLORIDE 97 mmol/L (98-107); GLUCOSE 88 mg/dL (75-110); LIPASE 274.4 U/L (23-300)
[2017-03-10 02:57] LABS: CREATININE RESULT 15.45 mg/dL (0.52-1.25)
[2017-03-10 02:58] LABS: POTASSIUM 6.2 mmol/L (3.6-5.0)
[2017-03-10 03:01] LABS: ANION GAP 21 (5-19)
[2017-03-10] MEDS ORDERED: ONDANSETRON ODT 4 MG TAB (6 TAB/DSPK) PO PRN (03:20)
[2017-03-10 03:31] VITALS: BP 109/81
--- NOTE | 2017-03-10 06:23 | EKG REPORT ---
SEVERITY:- NORMAL ECG - SINUS RHYTHM : Confirmed by: Moira Lilly MD 10-Mar-2017 06:22:17
== END 2017-03-10 03:41 | disposition home or self-care (01) ==
LOC: ER 00:18
DX: R11.2 Nausea with vomiting, unspecified (principal); R19.7 Diarrhea, unspecified; E87.5 Hyperkalemia; I12.0 Hypertensive chronic kidney disease with stage 5 chronic kidney disease or end stage renal disease; N18.6 End stage renal disease; Z99.2 Dependence on renal dialysis; J45.909 Unspecified asthma, uncomplicated; Z87.892 Personal history of anaphylaxis; Z88.6 Allergy status to analgesic agent; Z88.2 Allergy status to sulfonamides
CPT/HCPCS: 93005; 99284; 96374; 36415; 83690; 85025; 80053; 93010; J2405; A9270

== ENCOUNTER 2017-05-14 13:36 | Emergency (ER) | payer MEDICARE ==
--- NOTE | 2017-05-14 15:07 | ER Document Report ---
ED ENT - General Chief Complaint: Ear Pain Stated Complaint: EAR PAIN Time Seen by Provider: 05/14/17 14:48 Notes: 37 yo male on dialysis, c/o right ear and right throat pain x 2 days. TRAVEL OUTSIDE OF THE [place] IN LAST 30 DAYS: No - HPI Patient complains to provider of: Ear problem Onset/Duration: Gradual, Persistent Quality of pain: Achy Location of pain: Ears, Throat Associated symptoms: Cough, Sinus drainage, Sore throat, Swollen glands Similar symptoms previously: Yes Recently seen / treated by doctor: Yes - DR Ko - Related Data Allergies/Adverse Reactions: aspirin [Aspirin] Allergy (Severe, Verified 05/14/17 13:38) Anaphylaxis Sulfa (Sulfonamide Antibiotics) Allergy (Severe, Verified 05/14/17 13:38) Anaphylaxis Past Medical History - General Information source: Patient - Social History Smoking Status: Never Smoker Frequency of alcohol use: None Drug Abuse: None Lives with: Family Family History: Arthritis, CAD, COPD, CVA, Hyperlipidemia, Hypertension, Malignancy - Past Medical History Cardiac Medical History: Reports: Hx Hypercholesterolemia, Hx Hypertension Denies: Hx Coronary Artery Disease, Hx Heart Attack Pulmonary Medical History: Reports: Hx Asthma, Hx Bronchitis, Hx Sleep Apnea Denies: Hx COPD, Hx Pneumonia Neurological Medical History: Denies: Hx Cerebrovascular Accident, Hx Seizures Endocrine Medical History: Reports: Hx Hypothyroidism Renal/ Medical History: Reports: Hx End Stage Renal Disease, Hx Hemodialysis, Hx Peritoneal Dialysis GI Medical History: Reports: Hx Gastroesophageal Reflux Disease, Hx Hiatal Hernia, Hx Colonoscopy Musculoskeltal Medical History: Reports Hx Arthritis - hands, HIPS, Reports Hx Gout, Reports Hx Musculoskeletal Deformity - Degenerative joint disease Psychiatric Medical History: Reports: Hx Depression Traumatic Medical History: Reports: Hx Fractures - right ankle Past Surgical History: Reports: Hx Kidney (Renal Surgery), Hx Vascular Surgery - AV fistula - Immunizations Hx Diphtheria, Pertussis, Tetanus Vaccination: No Hx Pneumococcal Vaccination: 06/02/10 Review of Systems - Review of Systems Constitutional: No symptoms reported EENT: See HPI Cardiovascular: No symptoms reported Respiratory: No symptoms reported Gastrointestinal: No symptoms reported Genitourinary: No symptoms reported Male Genitourinary: No symptoms reported Musculoskeletal: No symptoms reported Skin: No symptoms reported Hematologic/Lymphatic: No symptoms reported Neurological/Psychological: No symptoms reported Physical Exam - Vital signs Vitals: Temp Pulse Resp BP Pulse Ox 98.4 F 91 18 116/66 100 05/14/17 13:42 05/14/17 13:42 05/14/17 13:42 05/14/17 13:42 05/14/17 13:42 Interpretation: Normal - General General appearance: Appears well, Alert - HEENT Head: Normocephalic, Atraumatic Eyes: Normal Conjunctiva: Normal Pupils: PERRL Tympanic membrane: Other - right TM dull Pharynx: Normal Neck: Lymphadenopathy - right anterior cervical - Respiratory Respiratory status: No respiratory distress Chest status: Nontender Breath sounds: Normal Chest palpation: Normal - Cardiovascular Rhythm: Regular Heart sounds: Normal auscultation Murmur: No - Abdominal Inspection: Normal Distension: No distension Bowel sounds: Normal Tenderness: Nontender Organomegaly: No organomegaly - Back Back: Normal, Nontender - Extremities General upper extremity: Normal inspection, Nontender, Normal color, Normal ROM , Normal temperature General lower extremity: Normal inspection, Nontender, Normal color, Normal ROM , Normal temperature, Normal weight bearing. No: Janet's sign - Neurological Neuro grossly intact: Yes Cognition: Normal Orientation: AAOx4 [place] Coma Scale Eye Opening: Spontaneous [place] Coma Scale Verbal: Oriented [place] Coma Scale Motor: Obeys Commands [place] Coma Scale Total: 15 Speech: Normal Motor strength normal: LUE, RUE, LLE, RLE Sensory: Normal - Psychological Associated symptoms: Normal affect, Normal mood - Skin Skin Temperature: Warm Skin Moisture: Dry Skin Color: Normal Course - Vital Signs Vital signs: Temp Pulse Resp BP Pulse Ox 98.4 F 91 18 116/66 100 05/14/17 13:42 05/14/17 13:42 05/14/17 13:42 05/14/17 13:42 05/14/17 13:42 Discharge - Discharge Clinical Impression: Lymphadenopathy of right cervical region Condition: Stable Disposition: HOME, SELF-CARE Instructions: Lymphadenopathy (OM), Antibiotic Therapy (OM) Additional Instructions: Take medications as prescribed Your ear is not infected, but your lymph node is swollen which is causing referred pain to your ear follow up with your primary care if pain persists Prescriptions: Amoxicillin 500 mg PO TID #21 tablet
[2017-05-14 15:37] VITALS: BP 106/64
== END 2017-05-14 15:35 | disposition home or self-care (01) ==
LOC: ER 13:36
DX: R59.1 Generalized enlarged lymph nodes (principal); H92.01 Otalgia, right ear; R07.0 Pain in throat
CPT/HCPCS: 99282

== ENCOUNTER 2017-10-10 03:09 | Emergency (ER) | payer MEDICARE, MEDICAID ==
[2017-10-10] MEDS ORDERED: MORPHINE SULFATE IR 15 MG TABLET PO ONE (04:13)
--- NOTE | 2017-10-10 04:28 | ER Document Report ---
ED Extremity Problem, Lower - General Chief Complaint: Leg Pain Stated Complaint: RIGHT LEG PAIN Time Seen by Provider: 10/10/17 04:04 Notes: Patient is a 37 year old male that comes to the ED for chief complaint of right hip, leg, and ankle pain. He states he was getting up and walking earlier in his leg gave out and he heard a couple of pops and he felt sharp pain in his hip and his ankle area. He states he has broken his ankle before, he usually walks with a cane. He denies any other complaints, he denies falling. He denies numbness, incontinence, fever. He is on pain management for DJD ( including for the same hip and leg of concern today). TRAVEL OUTSIDE OF THE [place] IN LAST 30 DAYS: No - Related Data Allergies/Adverse Reactions: aspirin [Aspirin] Allergy (Severe, Verified 05/14/17 13:38) Anaphylaxis Sulfa (Sulfonamide Antibiotics) Allergy (Severe, Verified 05/14/17 13:38) Anaphylaxis Past Medical History - General Information source: Patient - Social History Smoking Status: Never Smoker Frequency of alcohol use: None Drug Abuse: None Lives with: Alone Family History: Arthritis, CAD, COPD, CVA, Hyperlipidemia, Hypertension, Malignancy - Past Medical History Cardiac Medical History: Reports: Hx Hypercholesterolemia, Hx Hypertension Denies: Hx Coronary Artery Disease, Hx Heart Attack Pulmonary Medical History: Reports: Hx Asthma, Hx Bronchitis, Hx Sleep Apnea Denies: Hx COPD, Hx Pneumonia Neurological Medical History: Denies: Hx Cerebrovascular Accident, Hx Seizures Endocrine Medical History: Reports: Hx Hypothyroidism Renal/ Medical History: Reports: Hx End Stage Renal Disease, Hx Hemodialysis, Hx Peritoneal Dialysis GI Medical History: Reports: Hx Gastroesophageal Reflux Disease, Hx Hiatal Hernia, Hx Colonoscopy Musculoskeltal Medical History: Reports Hx Arthritis - hands, HIPS, Reports Hx Gout, Reports Hx Musculoskeletal Deformity - Degenerative joint disease Psychiatric Medical History: Reports: Hx Depression Traumatic Medical History: Reports: Hx Fractures - right ankle Past Surgical History: Reports: Hx Kidney (Renal Surgery), Hx Vascular Surgery - AV fistula - Immunizations Hx Diphtheria, Pertussis, Tetanus Vaccination: No Hx Pneumococcal Vaccination: 06/02/10 Review of Systems - Review of Systems Constitutional: No symptoms reported EENT: No symptoms reported Cardiovascular: No symptoms reported Respiratory: No symptoms reported Gastrointestinal: No symptoms reported Genitourinary: No symptoms reported Male Genitourinary: No symptoms reported Musculoskeletal: See HPI Skin: No symptoms reported Hematologic/Lymphatic: No symptoms reported Neurological/Psychological: No symptoms reported Physical Exam - Vital signs Vitals: Temp Pulse Resp BP Pulse Ox 98.6 F 91 20 132/76 H 96 10/10/17 03:17 10/10/17 03:17 10/10/17 03:17 10/10/17 03:17 10/10/17 03:17 Interpretation: Normal - General General appearance: Appears well In distress: None - HEENT Head: Normocephalic, Atraumatic Eyes: Normal Pupils: PERRL - Respiratory Respiratory status: No respiratory distress Chest status: Nontender Breath sounds: Normal. No: Decreased air movement, Wheezing Chest palpation: Normal - Cardiovascular Rhythm: Regular. No: Tachycardia Heart sounds: Normal auscultation, S1 appreciated, S2 appreciated Murmur: No - Abdominal Inspection: Normal Distension: No distension Bowel sounds: Normal Tenderness: Nontender Organomegaly: No organomegaly - Back Back: Normal, Nontender. No: Tender, CVA tenderness - Extremities General upper extremity: Normal inspection, Nontender, Normal ROM, Normal strength General lower extremity: Other - There is tenderness mainly over the proximal thigh, also mildly in the mid tibia and distal ankle, tenderness mainly over the lateral malleolus of the. No tenderness over the foot. No soft tissue swelling, normal dorsalis pedis and capillary refill, normal distal sensation - Neurological Neuro grossly intact: Yes Cognition: Normal Orientation: AAOx4 [place] Coma Scale Eye Opening: Spontaneous [employer] Coma Scale Verbal: Oriented [employer] Coma Scale Motor: Obeys Commands [place] Coma Scale Total: 15 Speech: Normal Motor strength normal: LUE, RUE, LLE, RLE Sensory: Normal - Psychological Associated symptoms: Normal affect, Normal mood - Skin Skin Temperature: Warm Skin Moisture: Dry Skin Color: Normal Course - Re-evaluation Re-evalutation: Patient with minimal soft tissue swelling at the lateral malleolus of the right ankle, tenderness over the ankle and distal tibia, tenderness over the proximal thigh. Range of motion intact. Normal distal neurovascular exam. No evidence of compartment syndrome. No neurological deficits or reported back symptoms. X -ray is unremarkable, no acute findings. Patient provided with ankle stirrup after discussion, he has a cane already for walking, he is Yuniel on pain management, he requests Lidoderm patches. Discussed follow-up and return precautions, patient states understanding and agreement. - Vital Signs Vital signs: Temp Pulse Resp BP Pulse Ox 98.6 F 91 20 132/76 H 96 10/10/17 03:17 10/10/17 03:17 10/10/17 03:17 10/10/17 03:17 10/10/17 03:17 Procedures - Immobilization Right ankle Pre-Proc Neuro Vasc Exam: Normal Immobilizer type: Jaspal wrap, Ankle stirrup Performed by: PCT Post-Proc Neuro Vasc Exam: Normal Alignment checked and good: Yes Discharge - Discharge Clinical Impression: Right hip pain, Right leg pain Right ankle pain Qualifiers: Chronicity: acute Qualified Code(s): M25.571 - Pain in right ankle and joints of right foot Condition: Stable Disposition: HOME, SELF-CARE Additional Instructions: Your x-rays do not show any concerning new findings, you have some arthritis in your leg as we discussed. Examination is consistent with a sprain of your ankle , recommendation is to use the ankle brace for support, elevate and ice your foot several times a day, continue current medications. You can use the Lidoderm patch, especially over your hip/femur area. Follow-up with your primary care provider. Return for any concerning symptoms including severe swelling or pain. Prescriptions: Lidocaine [Lidoderm 5% (700 mg) Transdermal Patch] 1 patch TP DAILY #30 adh..patch Referrals: AICHA HERNANDEZ DO [Primary Care Provider] - Follow up as needed
--- NOTE | 2017-10-10 05:21 | RADIOLOGY REPORT (SQ) ---
EXAM DESCRIPTION: XR FEMUR 2 VIEWS CLINICAL HISTORY: 37 years Male, injury, pain COMPARISON: None. Findings: Bones, joints, and soft tissues of the right femur appear intact. IMPRESSION: No acute findings.
--- NOTE | 2017-10-10 05:21 | RADIOLOGY REPORT (SQ) ---
EXAM DESCRIPTION: XR TIBIA FIBULA 2 VIEWS CLINICAL HISTORY: 37 years Male, injury, pain COMPARISON: None. Findings: Bones, joints, and soft tissues of the right tibia/fibula appear intact. Atherosclerosis. IMPRESSION: No acute findings.
--- NOTE | 2017-10-10 05:22 | RADIOLOGY REPORT (SQ) ---
EXAM DESCRIPTION: XR ANKLE 2 VIEWS CLINICAL HISTORY: 37 years Male, injury, pain COMPARISON: None. Findings: Bones, joints, and soft tissues of the right ankle appear intact. IMPRESSION: No acute findings.
--- NOTE | 2017-10-10 05:29 | RADIOLOGY REPORT (SQ) ---
EXAM DESCRIPTION: XR HIP 2 VIEWS CLINICAL HISTORY: 37 years Male, injury, pain COMPARISON: None. Findings: Bones, joints, and soft tissues of the right hip/pelvis appear intact. IMPRESSION: No acute findings.
[2017-10-10 07:10] VITALS: BP 120/82
== END 2017-10-10 07:26 | disposition home or self-care (01) ==
LOC: ER 03:09
DX: M16.11 Unilateral primary osteoarthritis, right hip (principal); M25.551 Pain in right hip; M79.604 Pain in right leg; M25.571 Pain in right ankle and joints of right foot; I10 Essential (primary) hypertension; J45.909 Unspecified asthma, uncomplicated; Z87.892 Personal history of anaphylaxis; Z88.6 Allergy status to analgesic agent; Z88.2 Allergy status to sulfonamides
CPT/HCPCS: 99283; 73610; 73552; 73502; 73590; L1902; A9270

== ENCOUNTER 2017-12-11 23:35 | Emergency (ER) | payer MEDICARE, MEDICAID ==
[2017-12-11 23:48] VITALS: BP 147/87
--- NOTE | 2017-12-12 00:03 | ER Document Report ---
ED Medical Screen (RME) - General Chief Complaint: Wrist Pain Stated Complaint: FALL/HAND INJURY Time Seen by Provider: 12/11/17 23:56 Mode of Arrival: Ambulatory Information source: Patient Notes: 37-year-old male presents to ED for complaint of left wrist and hand pain. He has a dialysis patient and fell about 20 minutes before coming to the ED landing on his left hand and wrist. His dialysis fistula he states is much larger in the last 20 minutes since he fell. He states he also has severe pain. He is concerned about his dialysis fistula. There is swelling to the left hand and wrist. Thickening to x-ray for a hand and wrist x-ray. Fistula does have a thrill. I have greeted and performed a rapid initial assessment of this patient. A comprehensive ED assessment and evaluation of the patient, analysis of test results and completion of medical decision making process will be conducted by an additional ED providers. TRAVEL OUTSIDE OF THE [place] IN LAST 30 DAYS: No - Related Data Allergies/Adverse Reactions: aspirin [Aspirin] Allergy (Severe, Verified 05/14/17 13:38) Anaphylaxis Sulfa (Sulfonamide Antibiotics) Allergy (Severe, Verified 05/14/17 13:38) Anaphylaxis Past Medical History - Past Medical History Cardiac Medical History: Reports: Hx Hypercholesterolemia, Hx Hypertension Denies: Hx Coronary Artery Disease, Hx Heart Attack Pulmonary Medical History: Reports: Hx Asthma, Hx Bronchitis, Hx Sleep Apnea Denies: Hx COPD, Hx Pneumonia Neurological Medical History: Denies: Hx Cerebrovascular Accident, Hx Seizures Endocrine Medical History: Reports: Hx Hypothyroidism Renal/ Medical History: Reports: Hx End Stage Renal Disease, Hx Hemodialysis, Hx Peritoneal Dialysis GI Medical History: Reports: Hx Gastroesophageal Reflux Disease, Hx Hiatal Hernia, Hx Colonoscopy Musculoskeltal Medical History: Reports Hx Arthritis - hands, HIPS, Reports Hx Gout, Reports Hx Musculoskeletal Deformity - Degenerative joint disease Psychiatric Medical History: Reports: Hx Depression Traumatic Medical History: Reports: Hx Fractures - right ankle Past Surgical History: Reports: Hx Kidney (Renal Surgery), Hx Vascular Surgery - AV fistula - Immunizations Hx Diphtheria, Pertussis, Tetanus Vaccination: No History of Influenza Vaccine for 03/2017 - 07/2017 Season: No Physical Exam - Vital signs Vitals: Temp Pulse Resp BP Pulse Ox 98.6 F 81 18 147/87 H 94 12/11/17 23:35 12/11/17 23:35 12/11/17 23:35 12/11/17 23:35 12/11/17 23:35 Course - Vital Signs Vital signs: Temp Pulse Resp BP Pulse Ox 98.6 F 81 18 147/87 H 94 12/11/17 23:35 12/11/17 23:35 12/11/17 23:35 12/11/17 23:35 12/11/17 23:35 Doctor's Discharge - Discharge Referrals: AICHA HERNANDEZ DO [Primary Care Provider] - Follow up as needed
--- NOTE | 2017-12-12 00:33 | RADIOLOGY REPORT (SQ) ---
EXAM DESCRIPTION: XR HAND 3 OR MORE VIEWS COMPLETED DATE/TME: 12/11/2017 23:57 CLINICAL HISTORY: 37 years, Male, pain and swelling COMPARISON: None. FINDINGS: 3 views of the left hand. No acute fracture or dislocation. Normal osseous mineralization. Postoperative change overlying the pelvis. IMPRESSION: No acute fracture or dislocation. 2011 [employer]- All Rights Reserved
--- NOTE | 2017-12-12 00:34 | RADIOLOGY REPORT (SQ) ---
EXAM DESCRIPTION: XR WRIST 3 OR MORE VIEWS COMPLETED DATE/TME: 12/11/2017 23:57 CLINICAL HISTORY: 37 years, Male, pain and swelling COMPARISON: None. FINDINGS: 3 views of the left wrist. No acute fracture or dislocation. Normal osseous mineralization. Postoperative change of the left breast. Atherosclerotic vascular calcification. Likely radiocephalic fistula of the wrist. Vascular coil identified. IMPRESSION: No acute fracture identified. 2010 [employer]- All Rights Reserved
[2017-12-12] MEDS ORDERED: OXYCODONE-ACETAMINOPHEN 5-325 MG TABLET PO ONE (00:48)
--- NOTE | 2017-12-12 00:52 | ER Document Report ---
ED General - General Chief Complaint: Wrist Pain Stated Complaint: FALL/HAND INJURY Time Seen by Provider: 12/11/17 23:56 Mode of Arrival: Ambulatory Notes: Patient is a 37-year-old male who fell forward landing onto his left hand and arm. Patient complains of pain into his left palm as well as swelling on his left forearm. Is concerned because his fistula for dialysis in his left arm. Patient says that his hoop machine operator is Dr. Gomes. He gets dialysis Friday. He says Dr. Mix manages his fistula. He denies any numbness or weakness into the left hand. He denies any other injuries. TRAVEL OUTSIDE OF THE [place] IN LAST 30 DAYS: No - Related Data Allergies/Adverse Reactions: aspirin [Aspirin] Allergy (Severe, Verified 05/14/17 13:38) Anaphylaxis Sulfa (Sulfonamide Antibiotics) Allergy (Severe, Verified 05/14/17 13:38) Anaphylaxis Past Medical History - General Information source: Patient - Social History Smoking Status: Never Smoker Chew tobacco use (# tins/day): No Frequency of alcohol use: None Drug Abuse: None Family History: Arthritis, CAD, COPD, CVA, Hyperlipidemia, Hypertension, Malignancy Patient has suicidal ideation: No Patient has homicidal ideation: No - Past Medical History Cardiac Medical History: Reports: Hx Hypercholesterolemia, Hx Hypertension Denies: Hx Coronary Artery Disease, Hx Heart Attack Pulmonary Medical History: Reports: Hx Asthma, Hx Bronchitis, Hx Sleep Apnea Denies: Hx COPD, Hx Pneumonia Neurological Medical History: Denies: Hx Cerebrovascular Accident, Hx Seizures Endocrine Medical History: Reports: Hx Hypothyroidism Renal/ Medical History: Reports: Hx End Stage Renal Disease, Hx Hemodialysis. Denies: Hx Peritoneal Dialysis GI Medical History: Reports: Hx Gastroesophageal Reflux Disease, Hx Hiatal Hernia, Hx Colonoscopy Musculoskeletal Medical History: Reports Hx Arthritis - hands, HIPS, Reports Hx Gout, Reports Hx Musculoskeletal Deformity - Degenerative joint disease Psychiatric Medical History: Reports: Hx Depression Traumatic Medical History: Reports: Hx Fractures - right ankle Past Surgical History: Reports: Hx Kidney (Renal Surgery), Hx Vascular Surgery - AV fistula - Immunizations Hx Diphtheria, Pertussis, Tetanus Vaccination: No Hx Pneumococcal Vaccination: 06/02/10 Review of Systems - Review of Systems Notes: My Normal Review Basic REVIEW OF SYSTEMS: CONSTITUTIONAL : Denies fever, chills, or sweats. Denies recent illness. MUSCULOSKELETAL: Pain and swelling to left forearm and hand. SKIN: Denies rash or skin lesions. NEUROLOGICAL: Denies altered mental status or loss of consciousness. Denies headache. Denies weakness or paralysis or loss of use of either side. Denies problems with gait or speech. Denies sensory or motor loss. ALL OTHER SYSTEMS REVIEWED AND NEGATIVE. Physical Exam - Vital signs Vitals: Temp Pulse Resp BP Pulse Ox 98.6 F 81 18 147/87 H 94 12/11/17 23:35 12/11/17 23:35 12/11/17 23:35 12/11/17 23:35 12/11/17 23:35 - Notes Notes: General Appearance: Well nourished, alert, cooperative, no acute distress, no obvious discomfort. Appearing. Vitals: reviewed, See vital signs table. Extremities: strength 5/5 in all extremities, good pulses in all extremities, patient has fistula left forearm. Fistula does have good palpable thrill. He does have good pulse. Distal hand has good capillary refill. He does have a little bit of swelling into the left palm of his hand consistent with a contusion. I did do a bedside ultrasound looking at the fistula. Bedside ultrasound shows good color Doppler flow throughout the entire tract of the fistula that I can see on my bedside ultrasound. I do not see extravasation of fluid outside of the fistula. Skin: warm, dry, appropriate color, no rash Neuro: speech clear, oriented x 3, normal affect, responds appropriately to questions. Course - Re-evaluation Re-evalutation: 12/12/17 00:50 Patient does have some swelling and soft tissue around the proximal aspect fistula. We do not have vascular ultrasound. I therefore did a bedside ultrasound looking at the patient's fistula. He has good vascular flow on color Doppler throughout the entire tract of the fistula. I do not see any extravasation of fluid. All I see is some soft tissue edema around the fistula without actual extravasation. Patient's fistula care is followed by Dr. Mix. I did call and speak with Dr. Mix this as long as patient is not showing signs of extravasation that I can call and speak with his hoop machine operator and make them aware. If at dialysis they feel that Vicky needs a fistulogram but he can be referred to Dr. Mix for that be performed. His hoop machine operator is Dr. Gomes. I will monitor him for low bit longer. I will recheck his arm again with bedside ultrasound to make sure the continues to be no signs of extravasation. I then will call Dr. Gomes. 12/12/17 04:47 Patient has not had any further increases in swelling. I did do a repeat bedside ultrasound. Continue to not see any extravasation of fluid. Continues have good flow on Doppler of the entire course of the fistula on ultrasound. Patient requests an Jaspal wrap for his hands he still some soreness in his left hand. I did give him an Jaspal wrap. I encourage him to take his home oxycodone for the pain. I did speak with Dr. Gomes, patient's hoop machine operator, who requested the patient not receive heparin today when he does dialysis. I informed the patient to inform the dialysis nurses of this and to have them call Dr. Gomes if they have any further questions. Patient to return to ER if he has increasing swelling, numbness or weakness into the hand, or if he has any further complaints. Dictation of this chart was performed using voice recognition software; therefore, there may be some unintended grammatical errors. 12/12/17 05:35 - Vital Signs Vital signs: Temp Pulse Resp BP Pulse Ox 98.6 F 81 18 147/87 H 94 12/11/17 23:35 12/11/17 23:35 12/11/17 23:35 12/11/17 23:35 12/11/17 23:35 Discharge - Discharge Clinical Impression: Left arm swelling Hand contusion Qualifiers: Encounter type: initial encounter Laterality: left Qualified Code(s): S60.222A - Contusion of left hand, initial encounter Condition: Good Disposition: HOME, SELF-CARE Additional Instructions: Please go to dialysis this am. Please inform the dialysis nurses that Dr. Gomes requests not giving heparin during your dialysis today. Have the dialysis nurses call Dr. Gomes with any further questions. Please return to the ER if you have increasing swelling, numbness or weakness in the hand, or if you have any further concerns. Referrals: AICHA HERNANDEZ DO [Primary Care Provider] -
== END 2017-12-12 05:37 | disposition home or self-care (01) ==
LOC: ER 23:35
DX: S60.222A Contusion of left hand, initial encounter (principal); M79.89 Other specified soft tissue disorders; M79.642 Pain in left hand; Z88.6 Allergy status to analgesic agent; Z88.2 Allergy status to sulfonamides; W19.XXXA Unspecified fall, initial encounter; Y93.9 Activity, unspecified; Y92.9 Unspecified place or not applicable; Y99.9 Unspecified external cause status
CPT/HCPCS: 99284; 73130; 73110; A9270

== ENCOUNTER 2018-02-20 10:17 | Emergency (ER) | payer MEDICARE, MEDICAID ==
[2018-02-20 10:39] VITALS: BP 108/61
[2018-02-20] MEDS ORDERED: LIDOCAINE 1% INJ-PF (10 MG/ML) 30 ML SDV INJ ONE (12:32)
--- NOTE | 2018-02-20 12:38 | ER Document Report ---
ED General - General Chief Complaint: Abscess Stated Complaint: POSSIBLE ABCESS/BACK Time Seen by Provider: 02/20/18 12:02 Notes: 38-year-old -[place] male to emergency department chief complaint of pain and abscess supragluteal area just to the right of the gluteal fold. Symptoms started several days ago. Thinks he may need to have it cut open and drained. Denies any other major symptoms at this time. TRAVEL OUTSIDE OF THE [place] IN LAST 30 DAYS: No - HPI Onset: Last week Onset/Duration: Gradual, Worse Quality of pain: Achy, Throbbing Severity: Moderate Pain Level: 4 - Related Data Allergies/Adverse Reactions: aspirin [Aspirin] Allergy (Severe, Verified 02/20/18 10:18) Anaphylaxis Sulfa (Sulfonamide Antibiotics) Allergy (Severe, Verified 02/20/18 10:18) Anaphylaxis Past Medical History - General Information source: Patient - Social History Smoking Status: Never Smoker Frequency of alcohol use: None Drug Abuse: None Lives with: Family Family History: Arthritis, CAD, COPD, CVA, Hyperlipidemia, Hypertension, Malignancy Patient has suicidal ideation: No Patient has homicidal ideation: No - Past Medical History Cardiac Medical History: Reports: Hx Hypercholesterolemia, Hx Hypertension Denies: Hx Coronary Artery Disease, Hx Heart Attack Pulmonary Medical History: Reports: Hx Asthma, Hx Bronchitis, Hx Sleep Apnea Denies: Hx COPD, Hx Pneumonia Neurological Medical History: Denies: Hx Cerebrovascular Accident, Hx Seizures Endocrine Medical History: Reports: Hx Hypothyroidism Renal/ Medical History: Reports: Hx End Stage Renal Disease, Hx Hemodialysis. Denies: Hx Peritoneal Dialysis GI Medical History: Reports: Hx Gastroesophageal Reflux Disease, Hx Hiatal Hernia, Hx Colonoscopy Musculoskeletal Medical History: Reports Hx Arthritis - hands, HIPS, Reports Hx Gout, Reports Hx Musculoskeletal Deformity - Degenerative joint disease Psychiatric Medical History: Reports: Hx Depression Traumatic Medical History: Reports: Hx Fractures - right ankle Past Surgical History: Reports: Hx Kidney (Renal Surgery), Hx Vascular Surgery - AV fistula - Immunizations Hx Diphtheria, Pertussis, Tetanus Vaccination: No Hx Pneumococcal Vaccination: 06/02/10 Review of Systems - Review of Systems Notes: Constitutional: denies: Chills, Diaphoresis, Fever, Malaise, Weakness EENT: denies: Eye discharge, Blurred vision, Tearing, Double vision, Nose congestion, Nose discharge, Throat swelling, Mouth pain Cardiovascular: denies: Palpitations, Heart racing, Orthopnea, Dyspnea, Chest pain Respiratory: denies: Cough, Hurts to breathe, Wheezing, Shortness of breath Gastrointestinal: denies: Abdominal pain, Diarrhea, Nausea, Vomiting, Black stools, bright red blood in stool Genitourinary: denies: Burning, Dysuria, Discharge, Frequency, Flank pain, Hematuria Musculoskeletal: denies: Joint pain, Joint swelling, Muscle pain, Muscle stiffness, back pain Hematologic/Lymphatic: denies: Anemia, Easy bleeding, Easy bruising, Blood clots Neurological/Psychological: denies: Confusion, Dementia, Depression, Loss of consciousness Skin: Complaining of abscess in the lower back and supragluteal area Physical Exam - Vital signs Vitals: Temp Pulse Resp BP Pulse Ox 98.4 F 88 20 108/61 93 02/20/18 10:38 02/20/18 10:38 02/20/18 10:38 02/20/18 10:38 02/20/18 10:38 Interpretation: Normal - General General appearance: Appears well, Alert - HEENT Head: Normocephalic, Atraumatic Eyes: Normal Pupils: PERRL - Respiratory Respiratory status: No respiratory distress Chest status: Nontender Breath sounds: Normal Chest palpation: Normal - Cardiovascular Rhythm: Regular Heart sounds: Normal auscultation Murmur: No - Abdominal Inspection: Normal Distension: No distension Bowel sounds: Normal Tenderness: Nontender Organomegaly: No organomegaly - Back Back: Normal, Nontender - Extremities General upper extremity: Normal inspection, Nontender, Normal color, Normal ROM , Normal temperature General lower extremity: Normal inspection, Nontender, Normal color, Normal ROM , Normal temperature, Normal weight bearing. No: Janet's sign - Neurological Neuro grossly intact: Yes Cognition: Normal Orientation: AAOx4 Mena Coma Scale Eye Opening: Spontaneous Mena Coma Scale Verbal: Oriented [employer] Coma Scale Motor: Obeys Commands Mena Coma Scale Total: 15 Speech: Normal Motor strength normal: LUE, RUE, LLE, RLE Sensory: Normal - Psychological Associated symptoms: Normal affect, Normal mood - Skin Skin Temperature: Warm Skin Moisture: Dry Skin Color: Normal, Other - Patient has a 2-3 cm painful, red, swollen area on the lower sacral/supragluteal area just to the right of the gluteal fold. Does not appear to track down into the rectum. Course - Re-evaluation Re-evalutation: 02/20/18 12:56 Patient may have an early abscess formation. I did prep the area and went to anesthetize it. There is a large amount of scar tissue with some surrounding erythema. Once area was anesthetized appropriately probed with the needle but only thing I was able to feel with scar tissue. At this time patient requested I stop the procedure. He would like to just try antibiotics. I did not make a large incision at this used a needle incision. Dressings were applied. Patient tolerated procedure well. At this time will give surgery follow-up, antibiotics and pain medication. - Vital Signs Vital signs: Temp Pulse Resp BP Pulse Ox 98.4 F 88 20 108/61 93 02/20/18 10:38 02/20/18 10:38 02/20/18 10:38 02/20/18 10:38 02/20/18 10:38 Discharge - Discharge Clinical Impression: Asya-rectal abscess Condition: Good Disposition: HOME, SELF-CARE Instructions: Abscess ([facility]) Prescriptions: Doxycycline Hyclate 100 mg PO BID #14 capsule Hydrocodone/Acetaminophen [[place] 5-325 mg Tablet] 1 tab PO TID PRN 3 Days #9 tablet PRN Reason: Referrals: AICHA HERNANDEZ DO [Primary Care Provider] - Follow up as needed JANAE RED MD [ACTIVE STAFF] - Follow up in 1 week
[2018-02-20] MEDS ORDERED: ACETAMINOPHEN 325 MG TABLET PO ONE (12:56)
[2018-02-20] MEDS ORDERED: DOXYCYCLINE HYCLATE 100 MG TABLET PO ONE (12:56)
== END 2018-02-20 13:25 | disposition home or self-care (01) ==
LOC: ER 10:17
DX: K61.1 Rectal abscess (principal); M79.1 Myalgia; E78.00 Pure hypercholesterolemia, unspecified; I12.0 Hypertensive chronic kidney disease with stage 5 chronic kidney disease or end stage renal disease; N18.6 End stage renal disease; Z99.2 Dependence on renal dialysis; Z88.6 Allergy status to analgesic agent; Z88.2 Allergy status to sulfonamides
CPT/HCPCS: 99283; A9270 ×2

== ENCOUNTER 2018-02-27 07:01 | Emergency (ER) | payer MEDICARE, MEDICAID ==
[2018-02-27] MEDS ORDERED: NORMAL SALINE 1000 ML 1,000 ML IV ONE (07:09)
[2018-02-27] MEDS ORDERED: MORPHINE SULFATE 10 MG/ML INJ IV ONE (07:25)
[2018-02-27] MEDS ORDERED: VANCOMYCIN HCL INJ 1000 MG VIAL IV ONE (07:25)
--- NOTE | 2018-02-27 07:32 | ER Document Report ---
ED Skin Rash/Insect Bite/Abscs - General Chief Complaint: Abscess Stated Complaint: SKIN ISSUE Time Seen by Provider: 02/27/18 07:08 Notes: The patient is a 38-year-old male, past medical history ESRD (MWF), prior gluteal abscesses, presents with worsening pain and swelling above his buttocks with subjective fevers. He was seen in ER 1 week ago and prescribed doxycycline , which he finished, after an I&D did not express any pus. Patient had dialysis 2 days ago and is due for dialysis this morning. He denies nausea, vomiting, rectal pain, painful stooling, abdominal pain or any other abscesses. TRAVEL OUTSIDE OF THE [place] IN LAST 30 DAYS: No - Related Data Allergies/Adverse Reactions: aspirin [Aspirin] Allergy (Severe, Verified 02/20/18 10:18) Anaphylaxis Sulfa (Sulfonamide Antibiotics) Allergy (Severe, Verified 02/20/18 10:18) Anaphylaxis Past Medical History - General Information source: Patient - Social History Smoking Status: Unknown if Ever Smoked Family History: Arthritis, CAD, COPD, CVA, Hyperlipidemia, Hypertension, Malignancy - Past Medical History Cardiac Medical History: Reports: Hx Hypercholesterolemia, Hx Hypertension Denies: Hx Coronary Artery Disease, Hx Heart Attack Pulmonary Medical History: Reports: Hx Asthma, Hx Bronchitis, Hx Sleep Apnea Denies: Hx COPD, Hx Pneumonia Neurological Medical History: Denies: Hx Cerebrovascular Accident, Hx Seizures Endocrine Medical History: Reports: Hx Hypothyroidism Renal/ Medical History: Reports: Hx End Stage Renal Disease, Hx Hemodialysis. Denies: Hx Peritoneal Dialysis GI Medical History: Reports: Hx Gastroesophageal Reflux Disease, Hx Hiatal Hernia, Hx Colonoscopy Musculoskeletal Medical History: Reports Hx Arthritis - hands, HIPS, Reports Hx Gout, Reports Hx Musculoskeletal Deformity - Degenerative joint disease Psychiatric Medical History: Reports: Hx Depression Traumatic Medical History: Reports: Hx Fractures - right ankle Past Surgical History: Reports: Hx Kidney (Renal Surgery), Hx Vascular Surgery - AV fistula - Immunizations Hx Diphtheria, Pertussis, Tetanus Vaccination: No Hx Pneumococcal Vaccination: 06/02/10 Review of Systems - Review of Systems Notes: REVIEW OF SYSTEMS: CONSTITUTIONAL: +subjective fevers, -chills EENT: -eye pain, -difficulty swallowing, -nasal congestion CARDIOVASCULAR: -chest pain, -syncope. RESPIRATORY: -cough, -SOB GASTROINTESTINAL: -abdominal pain, -nausea, -vomiting, -diarrhea MUSCULOSKELETAL: -back pain, -neck pain SKIN: +abscesses and cellulitis above buttocks HEMATOLOGIC: -easy bruising or bleeding. LYMPHATIC: -swollen, enlarged glands. NEUROLOGICAL: -altered mental status or loss of consciousness, -headache, - neurologic symptoms PSYCHIATRIC: -anxiety, -depression. ALL OTHER SYSTEMS REVIEWED AND NEGATIVE. Physical Exam - Vital signs Vitals: Temp Pulse Resp BP Pulse Ox 98.6 F 101 H 22 H 175/75 H 95 02/27/18 07:03 02/27/18 07:03 02/27/18 07:03 02/27/18 07:03 02/27/18 07:03 - Notes Notes: PHYSICAL EXAMINATION: GENERAL: Uncomfortable. HEAD: Atraumatic, normocephalic. EYES: Pupils equal round and reactive to light, extraocular movements intact, sclera anicteric, conjunctiva are normal. ENT: nares patent, oropharynx clear without exudates. Moist mucous membranes. NECK: Normal range of motion, supple without lymphadenopathy LUNGS: Breath sounds clear to auscultation bilaterally and equal. No wheezes rales or rhonchi. HEART: Regular rate and rhythm without murmurs ABDOMEN: Soft, nontender, normoactive bowel sounds. No guarding, no rebound. No masses appreciated. EXTREMITIES: LUE dialysis fistula with good bruit and thrill. Normal range of motion, no pitting or edema. No cyanosis. NEUROLOGICAL: Cranial nerves grossly intact. Normal speech, normal gait. Normal sensory and motor exams. SKIN: 3 fluctuant abscesses in superior gluteal cleft with a small amount of surrounding erythema Course - Re-evaluation Re-evalutation: Pt with worsening gluteal abscesses and surrounding cellulitis, despite finishing a week of outpatient doxycycline. He is afebrile with a normal white count and normal lactate. No signs of sepsis. A large amount of pus came out of his gluteal abscess. Switched patient to clindamycin and will have him follow-up with the surgery clinic. Given very strict return precautions and he understands. He is going to dialysis upon discharge. - Vital Signs Vital signs: Temp Pulse Resp BP Pulse Ox 97.5 F 88 20 156/107 H 96 02/27/18 11:53 02/27/18 11:53 02/27/18 11:53 02/27/18 11:53 02/27/18 11:53 - Laboratory Result Diagrams: 02/27/18 07:30 02/27/18 07:30 Laboratory results interpreted by me: 02/27/18 02/27/18 07:30 07:30 RBC 3.24 L Hgb 9.7 L Hct 29.6 L RDW 19.5 H Lymphocytes % 8.4 L Eosinophils % 10.5 H Absolute Eosinophils 0.8 H Potassium 5.1 H Chloride 92 L BUN 42 H Creatinine 16.68 H Est GFR ( Amer) 4 L Est GFR (Non-Af Amer) 3 L Procedures - Incision and Drainage Buttock Type: Multiple Anesthetic type: 1% Lidocaine w/epi mL's of anesthetic: 5 Blade size: 11 I&D procedure: Betadine prep applied, Sterile dressing applied Incision Method: Incision made by scalpel Amount/type of drainage: ~15 mL purulent drainage Discharge - Discharge Clinical Impression: Abscess of buttock Condition: Stable Disposition: HOME, SELF-CARE Additional Instructions: ABSCESS: You have an abscess (boil). This a pus-forming infection, usually due to staph. Some boils may be left to drain on their own, but most require lancing. From the time the tender lump first appears, it may be three or four days before the abscess is ready to kelsey. Local heat and rest help at this stage of treatment. An antibiotic may prevent spread of the infection. Once the abscess is opened, packing may be placed into it. This is done so pus is not sealed inside by premature closure of the cavity. The packing will be removed at your follow-up visit or you may be advised to remove it yourself at home. Sometimes this packing must be replaced a few times during healing. The wound will heal with surprisingly little scar. Depending on the size and location of an abscess, healing can take one to four weeks. You may shower and wash the area around the incision site two or three times a day. Antibiotics may be prescribed, but are usually not necessary after an abscess has been drained. If you develop fever, chills, worsening pain, or increasing swelling in the area, call the doctor or return immediately. POST INCISION AND DRAINAGE: You have had an incision made to allow drainage of an abscess. The incision must remain open so that pus and debris can drain from the wound. If the abscess cavity is large, packing is placed. This keeps the tissues from collapsing and trapping pus inside, while the body shrinks the cavity. The packing may need to be replaced every day or two. The physician will instruct you on the packing. Keep a bulky dressing over the area. Replace it if it becomes saturated with blood or pus. Do not disturb the packing (if present). You may shower and cleanse the area with gentle soap and warm water two or three times a day. Local warmth may be soothing, and may promote faster healing. Return if you develop high fever or chills, or if you note spreading redness, increasing swelling, or increasing tenderness. MRSA CELLULITIS: You have an infection of your skin and underlying soft tissues called cellulitis. This is due to bacteria, which can enter through any break in the skin, or even through an irritated hair follicle. Untreated, cellulitis will usually worsen and may form an abscess which requires draining. Although many bacterial organisms can cause cellulitis and abscess formations, the most likely bacteria is Methicillin-Resistant Staph Aureus, or MRSA for short. Antibiotics are required. Usually, warm packs or warm soaks, and elevation of the infected area are recommended. You should start getting better within 24 to 36 hours. Most infections respond quickly to the right medication. Follow-up care is important, however, to check for abscess (boil) formation, unsuspected foreign body, or resistant infection. If you develop fever, chills, or if the area of infection is becoming rapidly more swollen or painful, call the doctor at once. FOLLOW-UP CARE: Most simple abscesses will not require a follow up visit. If you had packing placed in the abscess, remove it as instructed by the physician. If you have been referred to a physician for follow-up care, call the physicians office for an appointment as you were instructed or within the next two days. If you experience worsening or a significant change in your symptoms, return to the Emergency Department at any time for re-evaluation. Prescriptions: Clindamycin HCl 300 mg PO Q8H #21 capsule Fluconazole [Diflucan] 150 mg PO ONCE PRN #1 tablet PRN Reason: Forms: Elevated Blood Pressure Referrals: AICHA HERNANDEZ DO [Primary Care Provider] - Follow up as needed SURGERY [Provider Group] - Follow up as needed
[2018-02-27] MEDS ORDERED: LIDOCAINE 1%/EPINEPHRINE INJ 20 ML VIAL INJ ONE (07:44)
[2018-02-27] MEDS ORDERED: OXYCODONE-ACETAMINOPHEN 5-325 MG TABLET PO ONE (08:04)
[2018-02-27 08:12] LABS: ANION GAP 15 (5-19); BLOOD UREA NITROGEN 42 mg/dL (7-20); CALCIUM 9.2 mg/dL (8.4-10.2); CARBON DIOXIDE 30 mmol/L (22-30); CHLORIDE 92 mmol/L (98-107); GLUCOSE 81 mg/dL (75-110); POTASSIUM 5.1 mmol/L (3.6-5.0); SODIUM 137.3 mmol/L (137-145)
[2018-02-27 08:28] LABS: ABSOLUTE BASOPHILS # (AUTO) 0.1 10^3/uL (0.0-0.2); ABSOLUTE EOSINOPHILS # (AUTO) 0.8 10^3/uL (0.0-0.6); ABSOLUTE LYMPHOCYTES (AUTO) 0.6 10^3/uL (0.5-4.7); ABSOLUTE MONOCYTES (AUTO) 0.3 10^3/uL (0.1-1.4); ABSOLUTE NEUT (AUTO) 5.4 10^3/uL (1.7-8.2); BASOPHILS % (AUTO) 0.9 % (0-2); EOSINOPHILS % (AUTO) 10.5 % (0-6); HEMATOCRIT 29.6 % (37.9-51.0); HEMOGLOBIN 9.7 g/dL (13.5-17.0); LYMPHOCYTES % (AUTO) 8.4 % (13-45); MEAN CORPUSCULAR HEMOGLOBIN 29.8 pg (27.0-33.4); MEAN CORPUSCULAR HGB CONC 32.6 g/dL (32.0-36.0); MEAN CORPUSCULAR VOLUME 91 fl (80-97); MONOCYTES % (AUTO) 4.5 % (3-13); PLATELET COUNT 260 10^3/uL (150-450); RED BLOOD COUNT 3.24 10^6/uL (4.35-5.55); RED CELL DISTRIBUTION WIDTH 19.5 % (11.5-14.0); SEGMENTED NEUTROPHILS % (AUTO) 75.7 % (42-78); TOTAL CELLS COUNTED % (AUTO) 100 %; WHITE BLOOD COUNT 7.2 10^3/uL (4.0-10.5)
[2018-02-27 09:20] LABS: VENOUS BLOOD BASE EXCESS 4.6 mmol/L; VENOUS BLOOD HCO3 30.2 mmol/L (20-32); VENOUS BLOOD PCO2 50.3 mmHg (35-63); VENOUS BLOOD PH 7.4 (7.30-7.42)
[2018-02-27 11:53] VITALS: BP 156/107
== END 2018-02-27 11:53 | disposition home or self-care (01) ==
LOC: ER 07:01
PROC: 0H98XZZ Drainage of Buttock Skin, External Approach (ICD-10-PCS; principal; 2018-02-27)
DX: L02.31 Cutaneous abscess of buttock (principal); E78.00 Pure hypercholesterolemia, unspecified; I10 Essential (primary) hypertension; E03.9 Hypothyroidism, unspecified; I12.0 Hypertensive chronic kidney disease with stage 5 chronic kidney disease or end stage renal disease; N18.6 End stage renal disease; Z88.6 Allergy status to analgesic agent; Z88.2 Allergy status to sulfonamides; Z99.2 Dependence on renal dialysis
CPT/HCPCS: 99284; 96365; 96366; 36415; 87040; 85025; 80048; 82803; 83605; 10060; J3490; J2270; A9270; J3370

== ENCOUNTER 2018-09-08 05:03 | Inpatient (IN) | payer MEDICARE, MEDICAID ==
[2018-09-08] MEDS ORDERED: DILTIAZEM HCL INJ 25 MG/5 ML VIAL ONE (05:16)
[2018-09-08] MEDS ORDERED: DILTIAZEM HCL/D5W 0 MG/0 ML RTUINJ IV ONE (05:17)
--- NOTE | 2018-09-08 05:26 | ER Document Report ---
Addendum entered and electronically signed by ERICK BOONE PA-C 09/08/18 11:21: Discharge - Discharge Clinical Impression: Atrial fibrillation with rapid ventricular response Condition: Stable Disposition: ADMITTED INPATIENT Admitting Provider: Paty (Hospitalist) Unit Admitted: Telemetry Additional Instructions: You had an episode of atrial fibrillation that converted on its own this morning. Please call cardiology for close follow-up for additional evaluation and management of this. Recommend wearing your BiPAP at night, you are probably less likely to have this problem in the future if you do so. Return if you worsen including return pain, difficulty reading, passing out, or any other concerning or worsening symptoms. Referrals: DUSTIN QUIROZ MD [ACTIVE STAFF] - Follow up tomorrow Addendum entered and electronically signed by ERICK BOONE PA-C 09/08/18 11:20: Course - Re-evaluation Re-evalutation: 09/08/18 11:20 Second troponin resulted at 0.11, up from 0.05. I called Dr. Newman, hospitalist who accepted the patient for full admission to telemetry unit. - Vital Signs Vital signs: Temp Pulse Resp BP Pulse Ox 98.7 F 75 17 117/76 98 09/08/18 10:49 09/08/18 10:49 09/08/18 10:49 09/08/18 10:49 09/08/18 10:49 - Laboratory Result Diagrams: 09/08/18 05:11 09/08/18 06:10 Laboratory results interpreted by me: 09/08/18 09/08/18 05:11 06:10 WBC 3.7 L RBC 3.51 L Hgb 11.6 L Hct 34.9 L MCV 100 H RDW 21.6 H Eosinophils % 13.2 H Basophils % 2.3 H Chloride 97 L BUN 29 H Creatinine 11.20 H Est GFR ( Amer) 6 L Est GFR (Non-Af Amer) 5 L Direct Bilirubin 0.6 H ALT 12 L Creatine Kinase 838 H Original Note: ED Cardiac - General Chief Complaint: Chest Pain > 30 Stated Complaint: CHEST PAIN Time Seen by Provider: 09/08/18 05:15 Primary Care Provider: AICHA HERNANDEZ DO [Primary Care Provider] - Follow up as needed Notes: Patient is a 38-year-old male that comes emergency department for chief complaint of waking up with a sudden feeling of nausea and tightness in his chest. Patient denies cough, fever/chills, abdominal pain. He denies vomiting. Past medical history of hypertension, chronic kidney disease, on dialysis. He had dialysis earlier today. He denies any cardiac history otherwise. TRAVEL OUTSIDE OF THE [place] IN LAST 30 DAYS: No - Related Data Allergies/Adverse Reactions: aspirin [Aspirin] Allergy (Severe, Verified 09/08/18 05:39) Anaphylaxis Sulfa (Sulfonamide Antibiotics) Allergy (Severe, Verified 09/08/18 05:39) Anaphylaxis Past Medical History - General Information source: Patient - Social History Smoking Status: Never Smoker Frequency of alcohol use: None Drug Abuse: None Lives with: Family Family History: Arthritis, CAD, COPD, CVA, Hyperlipidemia, Hypertension, Malignancy - Past Medical History Cardiac Medical History: Reports: Hx Hypercholesterolemia, Hx Hypertension Denies: Hx Coronary Artery Disease, Hx Heart Attack Pulmonary Medical History: Reports: Hx Asthma, Hx Bronchitis, Hx Sleep Apnea Denies: Hx COPD, Hx Pneumonia Neurological Medical History: Denies: Hx Cerebrovascular Accident, Hx Seizures Endocrine Medical History: Reports: Hx Hypothyroidism Renal/ Medical History: Reports: Hx End Stage Renal Disease, Hx Hemodialysis. Denies: Hx Peritoneal Dialysis GI Medical History: Reports: Hx Gastroesophageal Reflux Disease, Hx Hiatal Hernia, Hx Colonoscopy Musculoskeletal Medical History: Reports Hx Arthritis - hands, HIPS, Reports Hx Gout, Reports Hx Musculoskeletal Deformity - Degenerative joint disease Psychiatric Medical History: Reports: Hx Depression Traumatic Medical History: Reports: Hx Fractures - right ankle Past Surgical History: Reports: Hx Kidney (Renal Surgery), Hx Vascular Surgery - AV fistula - Immunizations Hx Diphtheria, Pertussis, Tetanus Vaccination: No Hx Pneumococcal Vaccination: 06/02/10 Review of Systems - Review of Systems Constitutional: No symptoms reported EENT: No symptoms reported Cardiovascular: See HPI Respiratory: No symptoms reported Gastrointestinal: See HPI Genitourinary: No symptoms reported Male Genitourinary: No symptoms reported Musculoskeletal: No symptoms reported Skin: No symptoms reported Hematologic/Lymphatic: No symptoms reported Neurological/Psychological: No symptoms reported Physical Exam - Vital signs Vitals: Pulse Ox 87 L 09/08/18 05:12 - Notes Notes: GENERAL: Anxious but does not appear to be in distress. Obese. HEAD: Normocephalic, atraumatic. EYES: Pupils equal, round, and reactive to light. Extraocular movements intact. ENT: Oral mucosa moist, tongue midline. Oropharynx unremarkable. Airway patent. Nares patent, no nasal septal hematoma, TM's intact. NECK: Full range of motion. Supple. Trachea midline. LUNGS: Clear to auscultation bilaterally, no wheezes, rales, or rhonchi. No respiratory distress. HEART: Irregularly irregular. No murmur. ABDOMEN: Soft, non-tender. Non-distended. Bowel sounds present in all 4 quadrants. GENITOURINARY: Deferred EXTREMITIES: Moves all 4 extremities spontaneously. No edema, normal radial and dorsalis pedis pulses bilaterally. No cyanosis. BACK: no cervical, thoracic, lumbar midline tenderness. No saddle anesthesia, normal distal neurovascular exam. NEUROLOGICAL: Alert and oriented x3. Normal speech. [cranial nerves II through XII grossly intact]. PSYCH: Normal affect, normal mood. SKIN: Warm, dry, normal turgor. No rashes or lesions noted. Course - Re-evaluation Re-evalutation: 09/08/18 05:25 On my initial evaluation patient is in atrial fibrillation with rapid ventricular response at a rate of approximately 150, he states he feels uncomfortable. However before we gave the patient Cardizem he converted on his own to a sinus rhythm in the 90s. Clear lungs on auscultation. No lower extremity swelling. Unremarkable physical examination otherwise. 09/08/18 On repeat evaluation patient is sleeping but easily aroused. He states he feels some generalized achiness but he is not having chest pain or shortness of breath. CBC nonspecific, chemistry shows chronic kidney disease, troponin is indeterminate 0.05. Chest x-ray unremarkable. Repeat EKG was obtained and does show sinus rhythm. Patient states that he takes atenolol 12.5 mg twice a day, he recently this was decreased from 25 mg to 12.5 mg twice a day. This was because of his low blood pressures after dialysis. Patient becomes hypoxic when he falls asleep, he is supposed to be wearing CPAP at home which she does at times, he was placed on 2 L nasal cannula for this to be resolved. 09/08/18 07:15 During monitoring patient has maintained sinus rhythm and has not reverted back into atrial fibrillation with rapid ventricular response. Discussed with Dr. Tsai, he evaluated the patient at bedside, patient now states that he feels tightness along the right side of his chest. No cardiac history. He does not have a buying agent. Patient's pain is atypical, however repeat troponin will be performed, if this is unremarkable patient will follow-up with buying agent and close follow-up with return precautions. This was discussed with patient and Dr. Tsai at bedside. Patient states satisfaction with plan. - Vital Signs Vital signs: Temp Pulse Resp BP Pulse Ox 98.5 F 21 H 148/96 H 88 L 09/08/18 05:16 09/08/18 07:46 09/08/18 07:45 09/08/18 07:46 - Laboratory Result Diagrams: 09/08/18 05:11 09/08/18 06:10 Laboratory results interpreted by me: 09/08/18 09/08/18 05:11 06:10 WBC 3.7 L RBC 3.51 L Hgb 11.6 L Hct 34.9 L MCV 100 H RDW 21.6 H Eosinophils % 13.2 H Basophils % 2.3 H Chloride 97 L BUN 29 H Creatinine 11.20 H Est GFR ( Amer) 6 L Est GFR (Non-Af Amer) 5 L Direct Bilirubin 0.6 H ALT 12 L Creatine Kinase 838 H Discharge - Discharge Clinical Impression: Atrial fibrillation with rapid ventricular response Condition: Stable Disposition: HOME, SELF-CARE Additional Instructions: You had an episode of atrial fibrillation that converted on its own this morni ng. Please call cardiology for close follow-up for additional evaluation and management of this. Recommend wearing your BiPAP at night, you are probably less likely to have this problem in the future if you do so. Return if you worsen including return pain, difficulty reading, passing out, or any other concerning or worsening symptoms. Referrals: DUSTIN QUIROZ MD [ACTIVE STAFF] - Follow up tomorrow
[2018-09-08 05:51] LABS: ABSOLUTE BASOPHILS # (AUTO) 0.1 10^3/uL (0.0-0.2); ABSOLUTE EOSINOPHILS # (AUTO) 0.5 10^3/uL (0.0-0.6); ABSOLUTE LYMPHOCYTES (AUTO) 0.9 10^3/uL (0.5-4.7); ABSOLUTE MONOCYTES (AUTO) 0.2 10^3/uL (0.1-1.4); BASOPHILS % (AUTO) 2.3 % (0-2); EOSINOPHILS % (AUTO) 13.2 % (0-6); HEMATOCRIT 34.9 % (37.9-51.0); HEMOGLOBIN 11.6 g/dL (13.5-17.0); LYMPHOCYTES % (AUTO) 24.8 % (13-45); MEAN CORPUSCULAR HEMOGLOBIN 33.1 pg (27.0-33.4); MEAN CORPUSCULAR HGB CONC 33.3 g/dL (32.0-36.0); MEAN CORPUSCULAR VOLUME 100 fl (80-97); MONOCYTES % (AUTO) 5.9 % (3-13); PLATELET COUNT 225 10^3/uL (150-450); RED BLOOD COUNT 3.51 10^6/uL (4.35-5.55); RED CELL DISTRIBUTION WIDTH 21.6 % (11.5-14.0); SEGMENTED NEUTROPHILS % (AUTO) 53.8 % (42-78); TOTAL CELLS COUNTED % (AUTO) 100 %; WHITE BLOOD COUNT 3.7 10^3/uL (4.0-10.5)
--- NOTE | 2018-09-08 06:11 | RADIOLOGY REPORT (SQ) ---
Chest single view on 09/08/2018 at 5:57 AM CLINICAL INDICATION: Chest pain COMPARISON: 04/17/2016 FINDINGS: There is elevation of the right hemidiaphragm. Mild cardiomegaly is noted. The lungs are clear. Hilar and mediastinal contours are within normal limits. Pulmonary vascularity is within normal limits. IMPRESSION: No acute disease.
[2018-09-08 06:43] LABS: ALANINE AMINOTRANSFERASE 12 U/L (21-72); ALBUMIN 4.5 g/dL (3.5-5.0); ALKALINE PHOSPHATASE 77 U/L (38-126); ANION GAP 14 (5-19); ASPARTATE AMINO TRANSFERASE 49 U/L (17-59); BILIRUBIN,DIRECT 0.6 mg/dL (0.0-0.4); BILIRUBIN,TOTAL 0.6 mg/dL (0.2-1.3); BLOOD UREA NITROGEN 29 mg/dL (7-20); CALCIUM 9.3 mg/dL (8.4-10.2); CARBON DIOXIDE 29 mmol/L (22-30); CHLORIDE 97 mmol/L (98-107); CREATINE KINASE 838 U/L (55-170); GLUCOSE 101 mg/dL (75-110); SODIUM 140.2 mmol/L (137-145); TOTAL PROTEIN 8.2 g/dL (6.3-8.2)
[2018-09-08 06:55] LABS: CREATINE KINASE MB 4.14 ng/mL (<4.55)
[2018-09-08 06:58] LABS: TROPONIN I 0.05 ng/mL
--- NOTE | 2018-09-08 07:20 | ER Document Report ---
Doctor's Note Notes: I personally and independently obtained patient history and examined the patient in conjunction with the APC and agree with the assessment, treatment plan and disposition of the patient as recorded by the APC, and have reviewed the APC's note. HISTORY OF PRESENT ILLNESS: Patient is a 38-year-old male with end-stage renal disease on dialysis and hypertension that presents to the emergency department for chief complaint of shortness of breath and chest discomfort. ROS: Constitutional: Negative for fever. Cardiovascular: Positive for chest pain Respiratory: Positive for shortness of breath Gastrointestinal: Negative for vomiting or abdominal pain Musculoskeletal: Negative for arm, leg or back pain Skin: Negative for rash. Neurological: Negative for weakness or numbness. Other than noted above, the 12 point review of systems was reviewed with the patient and were negative, all pertinent findings are included in the HPI. PHYSICAL EXAMINATION: Vital signs reviewed, nursing noted reviewed. GENERAL: Obese male, no acute distress, resting comfortably HEAD: Atraumatic, normocephalic. EYES: Eyes appear normal, conjunctiva are normal. ENT: nares patent, oropharynx clear without exudates. Moist mucous membranes. NECK: Normal range of motion, supple without lymphadenopathy LUNGS: Breath sounds clear to auscultation bilaterally and equal. No wheezes rales or rhonchi. HEART: Regular rate and rhythm without murmurs ABDOMEN: Soft, obese, nontender, normoactive bowel sounds. No rebound, guarding, or rigidity. No masses appreciated. EXTREMITIES: Nontender, good range of motion, no pitting or edema. NEUROLOGICAL: No focal neurological deficits. Moves all extremities spontaneously Motor and sensory grossly intact on exam. PSYCH: Normal mood, normal affect. SKIN: Warm, Dry, normal turgor, no rashes or lesions noted on exposed skin MEDICAL DECISION MAKING: Patient seen and examined, vital signs reviewed. Patient was resting when I saw him, was complaining of mild right-sided chest discomfort, without radiation, mild shortness of breath, patient does have sleep apnea, has been sleeping, was transiently hypoxic at 88%, he usually wears CPAP at home, was put on low flow supplemental nasal oxygen while sleeping. Patient history included waking up feeling uncomfortable, he most likely has a degree of pulmonary hypertension, leading to his paroxysmal atrial fibrillation, reinforced compliance with CPAP, his [id number] score is a 1, for having hypertension, which actually has been low recently he is only on a low-dose of atenolol. Discussion of anticoagulation, the risk benefit at this time for this patient, he is 38 years old, does have end-stage renal disease, but with a score of 1, risk may outweigh benefit, will defer to follow-up with cardiology to have this discussion further with the patient, we will repeat a second troponin, if negative, with a heart score less than 3, feel that the patient can be discharged home to follow-up with cardiology. Repeat troponin was elevated from prior to 0.1, therefore due to the patient's chest pain with a delta troponin, will plan to admit the patient for serial troponin testing, and evaluation more urgently from cardiology. Please review detail APC documentation. *Note is created using voice recognition software and may contain spelling, syntax or grammatical errors. Laboratory 09/08/18 09/08/18 09/08/18 05:11 05:11 05:11 WBC 3.7 L RBC 3.51 L Hgb 11.6 L Hct 34.9 L MCV 100 H MCH 33.1 MCHC 33.3 RDW 21.6 H Plt Count 225 Seg Neutrophils % 53.8 Lymphocytes % 24.8 Monocytes % 5.9 Eosinophils % 13.2 H Basophils % 2.3 H Absolute Neutrophils 2.0 Absolute Lymphocytes 0.9 Absolute Monocytes 0.2 Absolute Eosinophils 0.5 Absolute Basophils 0.1 Sodium Cancelled Potassium Cancelled Chloride Cancelled Carbon Dioxide Cancelled Anion Gap Cancelled BUN Cancelled Creatinine Cancelled Est GFR ( Amer) Cancelled Est GFR (Non-Af Amer) Cancelled Glucose Cancelled Calcium Cancelled Total Bilirubin Cancelled Direct Bilirubin Cancelled Neonat Total Bilirubin Cancelled Neonat Direct Bilirubin Cancelled Neonat Indirect Bili Cancelled AST Cancelled ALT Cancelled Alkaline Phosphatase Cancelled Creatine Kinase CK-MB (CK-2) Troponin I Cancelled Total Protein Cancelled Albumin Cancelled 09/08/18 09/08/18 09/08/18 06:10 06:10 09:14 WBC RBC Hgb Hct MCV MCH MCHC RDW Plt Count Seg Neutrophils % Lymphocytes % Monocytes % Eosinophils % Basophils % Absolute Neutrophils Absolute Lymphocytes Absolute Monocytes Absolute Eosinophils Absolute Basophils Sodium 140.2 Potassium 4.0 Chloride 97 L Carbon Dioxide 29 Anion Gap 14 BUN 29 H Creatinine 11.20 H Est GFR ( Amer) 6 L Est GFR (Non-Af Amer) 5 L Glucose 101 Calcium 9.3 Total Bilirubin 0.6 Direct Bilirubin 0.6 H Neonat Total Bilirubin Not Reportable Neonat Direct Bilirubin Not Reportable Neonat Indirect Bili Not Reportable AST 49 ALT 12 L Alkaline Phosphatase 77 Creatine Kinase 838 H CK-MB (CK-2) 4.14 Troponin I 0.050 0.111 Total Protein 8.2 Albumin 4.5 Chest X-Ray 09/08/18 05:23 IMPRESSION: No acute disease.
[2018-09-08] MEDS ORDERED: NITROGLYCERIN 0.4 MG/TAB 25 TAB/BOTTLE SL PRN (12:23)
[2018-09-08] MEDS ORDERED: CLOPIDOGREL BISULFATE 75 MG TABLET PO ONE (13:00)
--- NOTE | 2018-09-08 15:05 | RADIOLOGY REPORT (SQ) ---
EXAM DESCRIPTION: NM LUNG PERFUSION SCAN COMPLETED DATE/TIME: 09/08/2018 2:30 pm REASON FOR STUDY: sob,cp COMPARISON: Chest films 09/08/2018, 04/17/2016 RADIONUCLIDE AND DOSE: 4.9 millicuries TC-99m MAA The route of agent administration: Intravenous TECHNIQUE: Eight views of the lungs acquired following injection of MAA. LIMITATIONS: None. FINDINGS: PERFUSION: Perfusion images with normal homogenous activity and no wedge-shaped or segment al defects. OTHER: No other significant finding. IMPRESSION: NORMAL PERFUSION LUNG SCAN. TECHNICAL DOCUMENTATION: JOB ID: [id number] [employer]- All Rights Reserved Reading location - IP/workstation name: [email or web address]
[2018-09-08] MEDS: HEPARIN SOD (PORCINE) 5,000 UNIT/ML 1 ML SYRINGE SUBCUT SCH ×2 (15:20→21:13)
[2018-09-08] MEDS ORDERED: LEVOTHYROXINE SODIUM 0.15 MG TABLET PO SCH (15:45)
[2018-09-08] MEDS ORDERED: (PENDING PHARMACY ID) (Oxycodone Hcl/Acetaminophen [Percocet 10-325 Mg Tablet] 1 EACH) PO PRN (15:54)
--- NOTE | 2018-09-08 16:11 | PDOC H&P ---
History of Present Illness Admission Date/PCP: AICHA HERNANDEZ DO Patient complains of: chest pain History of Present Illness: CLAUDIA ALLRED is a 38 year old male with a PMH of hypertension, hyperlipidemia, ESRD likely from HTN nephrosclerosis on MWF HD, hypothyroidism, and DOC on BIPAP at home who presented with pain. Patient reports that he woke up last night around 1-2 am due to a midsternal chest pain which he describe as tightness, 7/10 in intensity associated with nausea. He reported some SOB with the tightness. He does say he is sedentary at home. He went to the ER where he was noted to be in AFib with RVR in the 150s. He was given IV cardizem to which he converted to normal sinus rhythm and HR went down to the 80s. In the ER, his troponin also went up from 0.05 to 0.11. Upon encounter, he appears comfortable and is currently chest pain free. Past Medical History Cardiac Medical History: Reports: Hyperlipidema, Hypertension Denies: Coronary Artery Disease, Myocardial Infarction Pulmonary Medical History: Reports: Asthma, Bronchitis, Sleep Apnea Denies: Chronic Obstructive Pulmonary Disease (COPD), Pneumonia Neurological Medical History: Denies: Seizures Endocrine Medical History: Reports: Hypothyroidism Renal/ Medical History: Reports: End Stage Renal Disease GI Medical History: Reports: Gastroesophageal Reflux Disease, Hiatal Hernia Musculoskeltal Medical History: Reports: Arthritis - hands, HIPS, Gout Psychiatric Medical History: Reports: Depression Hematology: Reports: Anemia Denies: Bleeding Tendencies Past Surgical History Past Surgical History: Reports: Vascular Surgery - AV fistula Social History Lives with: Family Smoking Status: Never Smoker Frequency of Alcohol Use: None Hx Recreational Drug Use: No Drugs: None Hx Prescription Drug Abuse: No Family History Family History: Arthritis, CAD, COPD, CVA, Hyperlipidemia, Hypertension, Malignancy Parental Family History Reviewed: Yes - no premature CAD Children Family History Reviewed: No Sibling(s) Family History Reviewed.: No Medication/Allergy Home Medications: Atenolol [Tenormin] 12.5 mg PO Q12 09/08/18 Cinacalcet HCl [Sensipar 90 mg Tablet] 90 mg PO DAILY 09/08/18 Hydroxyzine HCl [Atarax 25 mg Tablet] 1 tab PO Q8HP PRN 09/08/18 Lidocaine [Lidoderm 5% (700 mg) Transdermal Patch] 3 patch TP DAILY 09/08/18 Omeprazole 40 mg PO BID 09/08/18 Oxycodone HCl/Acetaminophen [Percocet 10-325 Mg Tablet] 1 each PO Q6HP PRN 09/08/18 Allergies/Adverse Reactions: aspirin [Aspirin] Allergy (Severe, Verified 09/08/18 05:39) Anaphylaxis Sulfa (Sulfonamide Antibiotics) Allergy (Severe, Verified 09/08/18 05:39) Anaphylaxis Review of Systems All systems: reviewed and no additional remarkable complaints except as stated - as mentioned in HPI Physical Exam Vital Signs: Temp Pulse Resp BP Pulse Ox 98.7 F 75 17 117/76 98 09/08/18 10:49 09/08/18 10:49 09/08/18 10:49 09/08/18 10:49 09/08/18 10:49 Intake & Output 09/07/18 09/08/18 09/09/18 06:59 06:59 06:59 Weight 328 lb 7.82 oz General appearance: PRESENT: no acute distress, morbidly obese Head exam: PRESENT: atraumatic, normocephalic Eye exam: PRESENT: conjunctiva pink, EOMI, PERRLA. ABSENT: scleral icterus Ear exam: PRESENT: normal external ear exam Mouth exam: PRESENT: moist, tongue midline Neck exam: ABSENT: carotid bruit, JVD, lymphadenopathy, thyromegaly Respiratory exam: PRESENT: clear to auscultation rm. ABSENT: rales, rhonchi, wheezes Cardiovascular exam: PRESENT: RRR. ABSENT: diastolic murmur, rubs, systolic murmur GI/Abdominal exam: PRESENT: normal bowel sounds, soft. ABSENT: distended, guarding, mass, organolmegaly, rebound, tenderness Rectal exam: PRESENT: deferred Extremities exam: PRESENT: +2 edema Neurological exam: PRESENT: alert, awake, oriented to person, oriented to place, oriented to time, oriented to situation, CN II-XII grossly intact. ABSENT: motor sensory deficit Results Laboratory Results: 09/08/18 05:11 09/08/18 06:10 09/08/18 09/08/18 09/08/18 05:11 05:11 06:10 WBC 3.7 L RBC 3.51 L Hgb 11.6 L Hct 34.9 L MCV 100 H MCH 33.1 MCHC 33.3 RDW 21.6 H Plt Count 225 Seg Neutrophils % 53.8 Lymphocytes % 24.8 Monocytes % 5.9 Eosinophils % 13.2 H Basophils % 2.3 H Absolute Neutrophils 2.0 Absolute Lymphocytes 0.9 Absolute Monocytes 0.2 Absolute Eosinophils 0.5 Absolute Basophils 0.1 Sodium Cancelled 140.2 Potassium Cancelled 4.0 Chloride Cancelled 97 L Carbon Dioxide Cancelled 29 Anion Gap Cancelled 14 BUN Cancelled 29 H Creatinine Cancelled 11.20 H Est GFR ( Amer) Cancelled 6 L Est GFR (Non-Af Amer) Cancelled 5 L Glucose Cancelled 101 Calcium Cancelled 9.3 Total Bilirubin Cancelled 0.6 AST Cancelled 49 ALT Cancelled 12 L Alkaline Phosphatase Cancelled 77 Total Protein Cancelled 8.2 Albumin Cancelled 4.5 09/08/18 09/08/18 09/08/18 05:11 06:10 06:10 Creatine Kinase 838 H CK-MB (CK-2) 4.14 Troponin I Cancelled 0.050 09/08/18 09:14 Creatine Kinase CK-MB (CK-2) Troponin I 0.111 Impressions: Chest X-Ray 09/08/18 05:23 IMPRESSION: No acute disease. Assessment and Plan - Diagnosis (1) Chest pain Is this a current diagnosis for this admission?: Yes Plan: Initial EKG shows Afib w/ RVR. He did convert to NSR after IV cardizem and is currently in NSR with a HR of 80. Repeat EKG shows NSR wiht no ischemic changes. He is currently chest pain free. Troponin went up from 0.05 to 0.11. This could be from demand ischemia form the AFib with his renal failure contributory. Patient does have risk factors for CAD including morbid obesity, ESRD and hypertension. He had a stress stest in 2016 which was normal. Will consult cardiology for further recommendation about next appropriate work-up. Patient has anaphylaxis to aspirin (hives and shortness of breath). Will start him on Plavix, statin and lopressor. (2) Elevated troponin Is this a current diagnosis for this admission?: Yes Plan: As per number 1. (3) Atrial fibrillation with rapid ventricular response Is this a current diagnosis for this admission?: Yes Plan: He has a CHADVASC score of 1. He does report of occasional hemorrhoidal bleed 1- 2/month. Patient has anaphylaxis to aspirin (hives and shortness of breath). Will start him on Plavix. Will also check his TSH. (4) ESRD needing dialysis Is this a current diagnosis for this admission?: Yes Plan: Patient completed dialysis yesterday. Will consult nephrology. - Time Time Spent with patient: 25-34 minutes
[2018-09-08] MEDS ORDERED: OXYCODONE-ACETAMINOPHEN 5-325 MG TABLET PO PRN (18:22)
[2018-09-08] MEDS: SEVELAMER HCL 800 MG TABLET PO SCH (18:40)
[2018-09-08] MEDS ORDERED: LEVOTHYROXINE SODIUM 0.075 MG TABLET PO SCH (19:30)
[2018-09-08] MEDS ORDERED: LEVOTHYROXINE SODIUM 0.1 MG TABLET PO SCH (19:30)
[2018-09-08] MEDS: ATORVASTATIN CALCIUM 40 MG TABLET PO SCH (21:09)
[2018-09-08] MEDS: PANTOPRAZOLE SODIUM 40 MG TABLET.DR PO SCH (21:09)
[2018-09-08] MEDS: METOPROLOL TARTRATE 25 MG TABLET PO SCH (21:10)
--- NOTE | 2018-09-08 23:55 | EKG REPORT ---
SEVERITY:- ABNORMAL ECG - SINUS RHYTHM MARKEDLY POSTERIOR QRS AXIS PROLONGED QT INTERVAL : Confirmed by: Manuel Tineo 08-Sep-2018 23:55:06
--- NOTE | 2018-09-08 23:56 | EKG REPORT ---
SEVERITY:- ABNORMAL ECG - ATRIAL FIBRILLATION VENTRICULAR PREMATURE COMPLEX LEFT ANTERIOR FASCICULAR BLOCK BORDERLINE PROLONGED QT INTERVAL : Confirmed by: Manuel Tineo 08-Sep-2018 23:55:22
[2018-09-09] MEDS: OXYCODONE HCL IR 5 MG TABLET PO PRN ×2 (05:37→17:57)
[2018-09-09] MEDS: HEPARIN SOD (PORCINE) 5,000 UNIT/ML 1 ML SYRINGE SUBCUT SCH ×3 (05:37→21:38)
[2018-09-09] MEDS: METOPROLOL TARTRATE 25 MG TABLET PO SCH ×2 (09:14→21:38)
[2018-09-09] MEDS: SEVELAMER HCL 800 MG TABLET PO SCH ×3 (09:14→17:54)
[2018-09-09] MEDS: PANTOPRAZOLE SODIUM 40 MG TABLET.DR PO SCH ×3 (09:14→17:54)
--- NOTE | 2018-09-09 15:48 | PDOC PROGRESS REPORT ---
Subjective Progress Note for:: 09/09/18 Subjective:: No adverse events overnight. No new complaints. Vital signs been stable. In normal sinus rhythm on the monitor. No chest pain or shortness of breath. No palpitations. Reason For Visit: CHEST PAIN,ELEVATED TROPONIN,NEW ON SET AFIB Physical Exam Vital Signs: Temp Pulse Resp BP Pulse Ox 98.2 F 73 18 141/88 H 98 09/09/18 11:18 09/09/18 11:18 09/09/18 11:18 09/09/18 11:18 09/09/18 11:18 Intake & Output 09/08/18 09/09/18 09/10/18 06:59 06:59 06:59 Intake Total 744 Balance 744 Weight 149 kg 153.6 kg General appearance: PRESENT: no acute distress, cooperative, disheveled, morbidly obese Respiratory exam: PRESENT: clear to auscultation rm, symmetrical, unlabored. ABSENT: accessory muscle use, crackles, prolonged expiratory phas, rhonchi, tachypnea, wheezes Cardiovascular exam: PRESENT: RRR, +S1, +S2 Pulses: PRESENT: normal carotid pulses Vascular exam: PRESENT: normal capillary refill GI/Abdominal exam: PRESENT: normal bowel sounds, soft. ABSENT: distended, guarding, rebound, tenderness Extremities exam: PRESENT: pedal edema, +2 edema. ABSENT: clubbing Musculoskeletal exam: PRESENT: normal inspection. ABSENT: deformity Neurological exam: PRESENT: alert, awake, oriented to person, oriented to place, oriented to situation Psychiatric exam: PRESENT: flat affect Skin exam: PRESENT: dry, warm Results Laboratory Results: 09/08/18 05:11 09/08/18 06:10 09/08/18 09/08/18 09/08/18 05:11 06:10 06:10 Creatine Kinase 838 H CK-MB (CK-2) 4.14 Troponin I Cancelled 0.050 09/08/18 09:14 Creatine Kinase CK-MB (CK-2) Troponin I 0.111 Impressions: Chest X-Ray 09/08/18 05:23 IMPRESSION: No acute disease. Lung Scan-VQ NM 09/08/18 12:18 IMPRESSION: NORMAL PERFUSION LUNG SCAN. Assessment and Plan - Diagnosis (1) Atrial fibrillation with rapid ventricular response Is this a current diagnosis for this admission?: Yes Plan: Resolved. Now normal sinus rhythm. (2) Chest pain Qualifiers: Chest pain type: other chest pain Qualified Code(s): R07.89 - Other chest pain; R07.8 - Other chest pain Is this a current diagnosis for this admission?: Yes Plan: The pain was noncardiac, on the right side of his chest, reproducible with movement, likely a pectoral strain. No further workup indicated per cardiology. (3) Elevated troponin Is this a current diagnosis for this admission?: Yes (4) Hypothyroidism Qualifiers: Hypothyroidism type: other Qualified Code(s): E03.8 - Other specified hypothyroidism Is this a current diagnosis for this admission?: Yes Plan: He is on Synthroid, says that he has some treatment that he gets during dialysis as well. We will make sure that his TSH is trending in the right direction, once we get some information about his last TSH, before sending him home. (5) ESRD needing dialysis Is this a current diagnosis for this admission?: Yes Plan: Nephrology has been consulted - Time Time Spent with patient: 25-34 minutes
--- NOTE | 2018-09-09 19:01 | PDOC CONSULTATION ---
Consultation Consult Date: 09/09/18 Consult reason:: ESRD for HD. History of Present Illness Admission Date/PCP: 09/08/18 12:21 AICHA HERNANDEZ DO History of Present Illness: CLAUDIA ALLRED is a 38 year old male with a history of ESRD, hypertension, hyperlipidemia, hypothyroidism, and DOC on BIPAP at home, Renal osteody strophy,severe noncompliance with diet and medications,who presented with chest pain of a couple of hours duration prior to admission. Evaluations in the ER revealed that he was in AFib with RVR in the 150s. Besides that his troponin was also on the rise. He was treated with IV Cardizem and he converted to sinus rhythm. He is being admitted for further evaluations. He is currently being seen on hemodialysis. He is quite sleepy but easily arousable. He says he is compliant with his CPAP. He denies any chest pain or shortness of breath at the moment. He also admits to the fact that he has not been taking his Synthroid which he ran out for a few weeks. Does not recall when was the last time he took it. Labs and medications were reviewed. His serum TSH was 160. Dialysis orders were reviewed with the treating dialysis nurse. Past Medical History Cardiac Medical History: Reports: Hyperlipidemia, Hypertension-primary Denies: Coronary Artery Disease, Myocardial Infarction Pulmonary Medical History: Reports: Asthma, Bronchitis, Sleep Apnea Denies: Chronic Obstructive Pulmonary Disease (COPD), Pneumonia Neurological Medical History: Denies: Seizures Endocrine Medical History: Reports: Hypothyroidism Renal/ Medical History: Reports: End Stage Renal Disease, Secondary Hyperparathyroidism GI Medical History: Reports: Gastroesophageal Reflux Disease, Hiatal Hernia Musculoskeltal Medical History: Reports: Arthritis - hands, HIPS, Gout Psychiatric Medical History: Reports: Depression Hematology Medical History: Reports Anemia of Chronic Kidney Disease Past Surgical History Past Surgical History: Reports: Vascular Surgery - AV fistula Social History Lives with: Family Smoking Status: Never Smoker Frequency of Alcohol Use: None Hx Recreational Drug Use: No Drugs: None Hx Prescription Drug Abuse: No - Advance Directive Resuscitation Status: Full Code Family History Parental Family History Reviewed: Yes - Negative for ESRD Children Family History Reviewed: No Sibling(s) Family History Reviewed.: No Medication/Allergy Home Medications: Atenolol [Tenormin] 50 mg PO Q12 09/08/18 Cinacalcet HCl [Sensipar 90 mg Tablet] 180 mg PO WSUPPER 09/08/18 Fluoxetine HCl [Prozac] 10 mg PO Q12 09/08/18 Levothyroxine Sodium [Synthroid 0.075 mg Tablet] 0.075 mg PO Q6AM 09/08/18 Levothyroxine Sodium [Synthroid] 200 mcg PO Q6AM 09/08/18 Omeprazole 40 mg PO MEALS 09/08/18 Oxycodone HCl/Acetaminophen [Percocet 10-325 mg Tablet] 1 tab PO Q6HP PRN 09/08/18 Sevelamer HCl [Renagel 800 mg Tablet] 2,400 mg PO MEALS 09/08/18 Allergies/Adverse Reactions: aspirin [Aspirin] Allergy (Severe, Verified 09/08/18 05:39) Anaphylaxis Sulfa (Sulfonamide Antibiotics) Allergy (Severe, Verified 09/08/18 05:39) Anaphylaxis Review of Systems Constitutional: PRESENT: fatigue, weakness. ABSENT: fever(s), headache(s), night sweats Ears: ABSENT: hearing changes Nose, Mouth, and Throat: ABSENT: mouth pain, sore throat Cardiovascular: PRESENT: chest pain, dyspnea on exertion, edema. ABSENT: orthropnea Gastrointestinal: ABSENT: abdominal pain, bloating, diarrhea, dysphagia, heartburn, hematemesis, hematochezia Musculoskeletal: ABSENT: deformity, joint swelling Integumentary: ABSENT: diaphoresis, erythema Neurological: ABSENT: abnormal movements, abnormal speech, confusion, convulsions, focal weakness, frequent falls, lack of coordination Endocrine: ABSENT: cold intolerance, heat intolerance Hematologic/Lymphatic: ABSENT: easy bruising, lymphadenopathy Physical Exam Vital Signs: Temp Pulse Resp BP Pulse Ox 98.2 F 73 18 141/88 H 98 09/09/18 11:18 09/09/18 11:18 09/09/18 11:18 09/09/18 11:18 09/09/18 11:18 Intake & Output 09/08/18 09/09/18 09/10/18 06:59 06:59 06:59 Intake Total 744 Balance 744 Weight 149 kg 153.6 kg General appearance: PRESENT: no acute distress, morbidly obese Eye exam: PRESENT: EOMI, PERRLA Ear exam: PRESENT: normal external ear exam Mouth exam: PRESENT: moist, neck supple Neck exam: ABSENT: lymphadenopathy, meningismus, tenderness, thyromegaly, tracheal deviation Respiratory exam: PRESENT: clear to auscultation rm. ABSENT: crackles Cardiovascular exam: PRESENT: +S1, +S2 GI/Abdominal exam: PRESENT: normal bowel sounds, soft. ABSENT: organomegaly, tenderness Extremities exam: PRESENT: pedal edema Neurological exam: PRESENT: alert, awake, oriented to person, oriented to place Psychiatric exam: PRESENT: appropriate affect Skin exam: ABSENT: cyanosis, erythema, mottled, rash Results Laboratory Results: 09/08/18 05:11 09/08/18 06:10 09/08/18 09/08/18 09/08/18 05:11 06:10 06:10 Creatine Kinase 838 H CK-MB (CK-2) 4.14 Troponin I Cancelled 0.050 09/08/18 09:14 Creatine Kinase CK-MB (CK-2) Troponin I 0.111 Impressions: Chest X-Ray 09/08/18 05:23 IMPRESSION: No acute disease. Lung Scan-VQ NM 09/08/18 12:18 IMPRESSION: NORMAL PERFUSION LUNG SCAN. Assessment & Plan - Diagnosis (1) Atrial fibrillation with rapid ventricular response Is this a current diagnosis for this admission?: Yes Plan: Presently rate controlled after being given/initiated with IV Cardizem. (2) ESRD needing dialysis Is this a current diagnosis for this admission?: Yes Plan: Patient currently undergoing dialysis without any issues. Vital signs are stable. Dialysis is being supervised to ensure safe and smooth procedure. Plan to remove 2-3 L as tolerated. Dialysis orders reviewed with the treating dialysis nurse. (3) Hypothyroidism Qualifiers: Hypothyroidism type: other Qualified Code(s): E03.8 - Other specified hypothyroidism Plan: Advised that he should not miss his medications for obvious reasons. Currently back on replacements. (4) Renal osteodystrophy Plan: Patient has history of severe noncompliance with diet and medications and phosphorus is been chronically high needing to secondary/tertiary hyperparathyroidism unfortunately. He has refused any surgical interventions in spite of advising him why he should undergo that. (5) Chest pain Qualifiers: Chest pain type: other chest pain Qualified Code(s): R07.89 - Other chest pain; R07.8 - Other chest pain Is this a current diagnosis for this admission?: Yes Plan: As per hospitalist. Currently asymptomatic. (6) HTN (hypertension) Qualifiers: Hypertension type: essential hypertension Qualified Code(s): I10 - Essential (primary) hypertension Plan: Controlled currently on dialysis. Monitor.
[2018-09-09] MEDS: ATORVASTATIN CALCIUM 40 MG TABLET PO SCH (21:38)
[2018-09-10] MEDS: HEPARIN SOD (PORCINE) 5,000 UNIT/ML 1 ML SYRINGE SUBCUT SCH (05:38)
[2018-09-10] MEDS ORDERED: LEVOTHYROXINE SODIUM 0.1 MG TABLET PO SCH (06:00)
[2018-09-10] MEDS ORDERED: LEVOTHYROXINE SODIUM 0.075 MG TABLET PO SCH (06:00)
[2018-09-10] MEDS: PANTOPRAZOLE SODIUM 40 MG TABLET.DR PO SCH (09:20)
[2018-09-10] MEDS: METOPROLOL TARTRATE 25 MG TABLET PO SCH (09:20)
[2018-09-10] MEDS: SEVELAMER HCL 800 MG TABLET PO SCH (09:21)
[2018-09-10 12:36] VITALS: BP 131/86
--- NOTE | 2018-09-10 19:00 | PDOC DISCHARGE SUMMARY ---
General - Admit/Disc Date/PCP Admission Date/Primary Care Provider: 09/08/18 12:21 AICHA HERNANDEZ, Discharge Date: 09/10/18 - Discharge Diagnosis (1) Atrial fibrillation with rapid ventricular response Is this a current diagnosis for this admission?: Yes Summary: Converted spontaneously to a sinus rhythm. We will resume his home dose of atenolol. (2) Chest pain Is this a current diagnosis for this admission?: Yes Summary: This was actually musculoskeletal. Right-sided, nonradiating, motion with specific movements of his right upper extremity. No further workup indicated per cardiology. (3) Elevated troponin Is this a current diagnosis for this admission?: Yes Summary: Most likely as a result of his end-stage renal disease, not thought to be due to acute cardiac ischemia. 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 (5) ESRD needing dialysis Is this a current diagnosis for this admission?: Yes Summary: Nephrology was consulted for his usual hemodialysis. - Additional Information Resuscitation Status: Full Code Discharge Diet: Cardiac, Other (Comments) Discharge Activity: Activity As Tolerated, Balance Activity w/Rest Home Medications: Atenolol [Tenormin] 50 mg PO Q12 09/08/18 Cinacalcet HCl [Sensipar 90 mg Tablet] 180 mg PO WSUPPER 09/08/18 Fluoxetine HCl [Prozac] 10 mg PO Q12 09/08/18 Levothyroxine Sodium [Synthroid 0.075 mg Tablet] 0.075 mg PO Q6AM 09/08/18 Levothyroxine Sodium [Synthroid] 200 mcg PO Q6AM 09/08/18 Omeprazole 40 mg PO MEALS 09/08/18 Oxycodone HCl/Acetaminophen [Percocet 10-325 mg Tablet] 1 tab PO Q6HP PRN 09/08/18 Sevelamer HCl [Renagel 800 mg Tablet] 2,400 mg PO MEALS 09/08/18 History of Present Illness History of Present Illness: CLAUDIA ALLRED is a 38 year old male with a PMH of hypertension, hyperlipidemia, ESRD likely from HTN nephrosclerosis on MWF HD, hypothyroidism, and DOC on BIPAP at home who presented with pain. Patient reports that he woke up last night around 1-2 am due to a midsternal chest pain which he describe as tightness, 7/10 in intensity associated with nausea. He reported some SOB with the tightness. He does say he is sedentary at home. He went to the ER where he was noted to be in AFib with RVR in the 150s. He was given IV cardizem to which he converted to normal sinus rhythm and HR went down to the 80s. In the ER, his troponin also went up from 0.05 to 0.11. Upon encounter, he appears comfortable and is currently chest pain free. Hospital Course Hospital Course: He converted in the ER with 1 dose of IV Cardizem and will resume his home dose of atenolol. He was seen by cardiology and his chest pain was felt to be noncardiac and musculoskeletal in nature. His TSH was substantially elevated and he said he not been taking his Synthroid, and was wondering why he had felt so sluggish. He said he had a prescription waiting for him at the pharmacy, we recommend that he pick it up and begin taking it as prescribed. His TSH will need to be repeated in 4-6 weeks to evaluate efficacy of his current dose. He will resume his usual hemodialysis schedule tomorrow. His labs and examination were reassuring and he was discharged in good condition. Physical Exam Vital Signs: Temp Pulse Resp BP Pulse Ox 98.6 F 86 18 109/79 92 09/10/18 11:34 09/10/18 11:34 09/10/18 11:34 09/10/18 11:34 09/10/18 11:34 Intake & Output 09/09/18 09/10/18 09/11/18 06:59 06:59 06:59 Intake Total 744 580 Output Total 3200 Balance 744 -2620 Weight 153.6 kg 153 kg General appearance: PRESENT: no acute distress, cooperative, disheveled, morbidly obese Respiratory exam: PRESENT: clear to auscultation rm, symmetrical, unlabored. ABSENT: accessory muscle use, crackles, prolonged expiratory phas, rhonchi, tachypnea, wheezes Cardiovascular exam: PRESENT: RRR, +S1, +S2 Pulses: PRESENT: normal carotid pulses Vascular exam: PRESENT: normal capillary refill GI/Abdominal exam: PRESENT: normal bowel sounds, soft. ABSENT: distended, guarding, rebound, tenderness Extremities exam: PRESENT: pedal edema, +2 edema. ABSENT: clubbing Musculoskeletal exam: PRESENT: normal inspection. ABSENT: deformity Neurological exam: PRESENT: alert, awake, oriented to person, oriented to place, oriented to situation Psychiatric exam: PRESENT: flat affect Skin exam: PRESENT: dry, warm Results Laboratory Results: 09/08/18 05:11 09/08/18 06:10 09/08/18 09/08/18 09/08/18 05:11 06:10 06:10 Creatine Kinase 838 H CK-MB (CK-2) 4.14 Troponin I Cancelled 0.050 09/08/18 09:14 Creatine Kinase CK-MB (CK-2) Troponin I 0.111 Impressions: Chest X-Ray 09/08/18 05:23 IMPRESSION: No acute disease. Lung Scan-VQ NM 09/08/18 12:18 IMPRESSION: NORMAL PERFUSION LUNG SCAN. Qualifiers - * PATIENT BEING DISCHARGED WITH ANY OF THE FOLLOWING DIAGNOSIS: No Plan Time Spent: Greater than 30 Minutes
== END 2018-09-10 13:16 | disposition home or self-care (01) | DRG 308 ==
LOC: ER 05:03 → EH 12:21 → 4N 15:38
PROVIDERS: ADMIT Internal Medicine; ATTEND Internal Medicine
PROC: 5A09457 Assistance with Respiratory Ventilation, 24-96 Consecutive Hours, Continuous Positive Airway Pressure (ICD-10-PCS; principal; 2018-09-08)
PROC: 5A1D70Z Performance of Urinary Filtration, Intermittent, Less than 6 Hours Per Day (ICD-10-PCS; 2018-09-09)
DX: I48.2 Chronic atrial fibrillation (principal); N18.6 End stage renal disease; I12.0 Hypertensive chronic kidney disease with stage 5 chronic kidney disease or end stage renal disease; N25.81 Secondary hyperparathyroidism of renal origin; R07.89 Other chest pain; E78.5 Hyperlipidemia, unspecified; G47.33 Obstructive sleep apnea (adult) (pediatric); N25.0 Renal osteodystrophy; K21.9 Gastro-esophageal reflux disease without esophagitis; M19.042 Primary osteoarthritis, left hand; M19.041 Primary osteoarthritis, right hand; F32.9 Major depressive disorder, single episode, unspecified; D63.1 Anemia in chronic kidney disease; M16.0 Bilateral primary osteoarthritis of hip; E03.8 Other specified hypothyroidism; Z53.29 Procedure and treatment not carried out because of patient's decision for other reasons; Z91.14 Patient's other noncompliance with medication regimen; Z99.2 Dependence on renal dialysis; Z91.11 Patient's noncompliance with dietary regimen; Z88.6 Allergy status to analgesic agent; Z88.2 Allergy status to sulfonamides; Z79.899 Other long term (current) drug therapy; Z82.61 Family history of arthritis; Z82.49 Family history of ischemic heart disease and other diseases of the circulatory system; Z83.6 Family history of other diseases of the respiratory system; Z82.3 Family history of stroke; Z80.9 Family history of malignant neoplasm, unspecified
CPT/HCPCS: 36415; 71045; 78580; 80053; 82550; 82553; 83735; 84443; 84484; 85025; 93005; 93010; 94660; 99285; A9540; J1644; J3490; Q9969

== ENCOUNTER 2018-10-28 00:04 | Emergency (ER) | payer MEDICARE, MEDICAID ==
--- NOTE | 2018-10-28 03:55 | ER Document Report ---
ED General - General Chief Complaint: Insect Bite Stated Complaint: POSSIBLE SPIDER BITE Time Seen by Provider: 10/28/18 03:28 Primary Care Provider: AICHA HERNANDEZ DO [Primary Care Provider] - Follow up as needed Notes: 38-year-old male with end-stage renal disease on dialysis presents to the emergency department for concern for bug bites on his right lower leg. He states the days ago where his leg was itching and he scratched it and then it became acutely painful. He said his dialysis doctor said it could possibly be due to calcifications in the skin. Patient denies any fevers, chills, numbness or tingling in his leg, shortness of breath or chest pain, nausea or vomiting. Denies any recent illness or environmental exposure. Denies any vision changes or neck stiffness. Denies trauma. No other complaints. TRAVEL OUTSIDE OF THE [place] IN LAST 30 DAYS: No - Related Data Allergies/Adverse Reactions: aspirin [Aspirin] Allergy (Severe, Verified 09/08/18 05:39) Anaphylaxis Sulfa (Sulfonamide Antibiotics) Allergy (Severe, Verified 09/08/18 05:39) Anaphylaxis Past Medical History - Social History Smoking Status: Unknown if Ever Smoked Family History: Arthritis, CAD, COPD, CVA, Hyperlipidemia, Hypertension, Malignancy - Past Medical History Cardiac Medical History: Reports: Hx Hypercholesterolemia, Hx Hypertension Denies: Hx Coronary Artery Disease, Hx Heart Attack Pulmonary Medical History: Reports: Hx Asthma, Hx Bronchitis, Hx Sleep Apnea Denies: Hx COPD, Hx Pneumonia Neurological Medical History: Denies: Hx Cerebrovascular Accident, Hx Seizures Endocrine Medical History: Reports: Hx Hypothyroidism Renal/ Medical History: Reports: Hx End Stage Renal Disease, Hx Hemodialysis. Denies: Hx Peritoneal Dialysis GI Medical History: Reports: Hx Gastroesophageal Reflux Disease, Hx Hiatal Hernia, Hx Colonoscopy Musculoskeletal Medical History: Reports Hx Arthritis - hands, HIPS, Reports Hx Gout, Reports Hx Musculoskeletal Deformity - Degenerative joint disease Psychiatric Medical History: Reports: Hx Depression Traumatic Medical History: Reports: Hx Fractures - right ankle Past Surgical History: Reports: Hx Kidney (Renal Surgery), Hx Vascular Surgery - AV fistula - Immunizations Hx Diphtheria, Pertussis, Tetanus Vaccination: No Hx Pneumococcal Vaccination: 06/02/10 Review of Systems - Review of Systems Constitutional: See HPI EENT: See HPI Cardiovascular: No symptoms reported Respiratory: No symptoms reported Gastrointestinal: See HPI Genitourinary: No symptoms reported Male Genitourinary: No symptoms reported Musculoskeletal: No symptoms reported Skin: See HPI Hematologic/Lymphatic: No symptoms reported Neurological/Psychological: See HPI Physical Exam - Vital signs Vitals: Temp Pulse Resp BP Pulse Ox 98.3 F 87 20 140/93 H 96 10/28/18 00:10 10/28/18 00:10 10/28/18 00:10 10/28/18 00:10 10/28/18 00:10 - Notes Notes: PHYSICAL EXAMINATION: Reviewed vital signs and charting by RN GENERAL: Well-appearing, well-nourished and in no acute distress. HEAD: Atraumatic, normocephalic. No scalp deformity, depression, or crepitance. LUNGS: Breath sounds present, equal, and clear to auscultation bilaterally. No wheezes, rales, or rhonchi. HEART: Regular rate and rhythm without murmurs, rubs, or gallops. 2+ peripheral pulses. Normal capillary refill. ABDOMEN: Soft, nontender, nondistended. Normoactive bowel sounds. No guarding, no rebound. No masses appreciated. BACK: Normal contour, no midline tenderness. Rectal exam deferred. PELVC: Deferred. EXTREMITIES: Normal range of motion, no pitting or edema. No cyanosis. NEUROLOGICAL: No focal neurological deficits. Cranial nerves III-XII grossly intact. Moves all extremities spontaneously and on command. PSYCH: Normal mood, normal affect. No suicidal thoughts/ideations. No homocidal thoughts/ideations. No hallucinations. SKIN: Warm, dry, normal turgor, 2 small lesions posterior distal right lower extremity over his calf, hyperpigmented in the center with some surrounding erythema consistent with bite. Course - Re-evaluation Re-evalutation: 10/28/18 03:57 Patient presents with 10 days of a rash. They do appear to be bites but there is an underlying cellulitis. Because patient is a dialysis patient I will place him on doxycycline for 5 days. Vital signs are stable and he is afebrile. Stable for discharge. - Vital Signs Vital signs: Temp Pulse Resp BP Pulse Ox 98.3 F 87 20 140/93 H 96 10/28/18 00:10 10/28/18 00:10 10/28/18 00:10 10/28/18 00:10 10/28/18 00:10 Discharge - Discharge Clinical Impression: Skin infection Condition: Good Disposition: HOME, SELF-CARE Additional Instructions: You were seen in the emergency department this morning for an infection of your right leg. Is unclear what those lesions are but because of brown recluse spiders are not endemic to this area he can be reassured that they are not bites from that spider. I have placed you on an antibiotic called doxycycline that you will take 2 times a day for 5 days. This will help with the redness. If th ose black jamil start to become necrotic, the redness continues to spread while on the antibiotics, you develop a fever, or other concerns please return to the emergency department for reevaluation. Referrals: AICHA HERNANDEZ, DO [Primary Care Provider] - Follow up as needed
[2018-10-28] MEDS ORDERED: DOXYCYCLINE HYCLATE 100 MG TABLET PO ONE ×2 (03:58→05:00)
[2018-10-28 04:20] VITALS: BP 148/65
== END 2018-10-28 04:36 | disposition home or self-care (01) ==
LOC: ER 00:04
DX: L03.90 Cellulitis, unspecified (principal); I12.0 Hypertensive chronic kidney disease with stage 5 chronic kidney disease or end stage renal disease; N18.6 End stage renal disease; Z99.2 Dependence on renal dialysis; J45.909 Unspecified asthma, uncomplicated; Z87.892 Personal history of anaphylaxis; Z88.6 Allergy status to analgesic agent; Z88.2 Allergy status to sulfonamides
CPT/HCPCS: 99281

== ENCOUNTER 2018-11-17 07:12 | Day surgery (SDC) | payer MEDICARE, MEDICAID ==
[~2018-11-17 07:12] MED LIST changes: +CEFAZOLIN 1 GM/D5W RTU 1 GM/50 ML RTUPB IV ONE; +CEFAZOLIN 1 GM/D5W RTU 1 GM/50 ML RTUPB IV PRN; -DIPHENHYDRAMINE HCL 50 MG/ML VIAL ONE; -EPINEPHRINE INJ 1 MG/10 ML DISP.SYRIN ONE; -FLUMAZENIL INJ 0.5 MG/5 ML VIAL ONE; -GLUCAGON,HUMAN RECOMB 1 MG INJ ONE; +LIDOCAINE 2% INJ (20 MG/ML) 20 ML MDV ONE; +MIDAZOLAM 2 MG/2 ML INJ ONE; -NALOXONE HCL INJ/PF 0.4 MG/1 ML SDV ONE; -ONDANSETRON HCL INJ/PF 4 MG/2 ML SDV ONE; +PROPOFOL INJ 200 MG/20 ML VIAL IV ONE
[2018-11-17 07:47] LABS: HEMATOCRIT 34.7 % (37.9-51.0); HEMOGLOBIN 11.3 g/dL (13.5-17.0); MEAN CORPUSCULAR HEMOGLOBIN 31.9 pg (27.0-33.4); MEAN CORPUSCULAR HGB CONC 32.5 g/dL (32.0-36.0); MEAN CORPUSCULAR VOLUME 98 fl (80-97); PLATELET COUNT 210 10^3/uL (150-450); RED BLOOD COUNT 3.54 10^6/uL (4.35-5.55); RED CELL DISTRIBUTION WIDTH 20.9 % (11.5-14.0); WHITE BLOOD COUNT 3.2 10^3/uL (4.0-10.5)
[2018-11-17] MEDS ORDERED: ATENOLOL 50 MG TABLET PO PRN (08:00)
[2018-11-17 08:03] LABS: ANION GAP 14 (5-19); BLOOD UREA NITROGEN 24 mg/dL (7-20); CALCIUM 8.6 mg/dL (8.4-10.2); CARBON DIOXIDE 29 mmol/L (22-30); CHLORIDE 97 mmol/L (98-107); GLUCOSE 84 mg/dL (75-110); POTASSIUM 4.7 mmol/L (3.6-5.0)
[2018-11-17] MEDS ORDERED: LIDOCAINE 0.5% INJ-PF (5 MG/ML) 50 ML SDV ONE (08:37)
[2018-11-17] MEDS ORDERED: SILVER SULFADIAZINE 1% CREAM 25 GM ONE (08:37)
[2018-11-17] MEDS ORDERED: BACITRACIN INJ 50,000 UNIT VIAL ONE (08:37)
[2018-11-17] MEDS ORDERED: BUPIVACAINE HCL 0.25 % INJ/PF (2.5 MG/1 ML) 30 ML VIAL ONE (08:37)
[2018-11-17] MEDS ORDERED: COLLAGENASE CLOSTRIDIUM HIST. OINT 30 GM ONE (08:37)
--- NOTE | 2018-11-17 08:53 | RADIOLOGY REPORT (SQ) ---
EXAM DESCRIPTION: CHEST SINGLE VIEW COMPLETED DATE/TIME: 11/17/2018 7:41 am REASON FOR STUDY: PREOP COMPARISON: 09/08/2018 EXAM PARAMETERS: NUMBER OF VIEWS: One view. TECHNIQUE: Single frontal radiographic view of the chest acquired. RADIATION DOSE: NA LIMITATIONS: None. FINDINGS: LUNGS AND PLEURA: No opacities, masses or pneumothorax. No pleural effusion. MEDIASTINUM AND HILAR STRUCTURES: No masses. Contour normal. HEART AND VASCULAR STRUCTURES: Cardiomegaly. BONES: No acute findings. HARDWARE: None in the chest. OTHER: No other significant finding. IMPRESSION: Cardiomegaly without acute abnormality of the lungs in AP projection. TECHNICAL DOCUMENTATION: JOB ID: [id number] [employer]- All Rights Reserved Reading location - IP/workstation name: [email or web address]
[2018-11-17] MEDS ORDERED: PROMETHAZINE HCL INJ 25 MG/1 ML VIAL IV PRN ×2 (10:15)
[2018-11-17] MEDS ORDERED: FENTANYL CITRATE INJ/PF 100 MCG/2 ML AMPUL IV PRN ×3 (10:15)
[2018-11-17] MEDS ORDERED: DIPHENHYDRAMINE HCL 50 MG/ML VIAL IV PRN (10:15)
[2018-11-17] MEDS ORDERED: MEPERIDINE HCL/PF INJ 25 MG/1 ML DISP.SYRIN IV PRN (10:15)
[2018-11-17] MEDS ORDERED: OXYCODONE-ACETAMINOPHEN 5-325 MG TABLET PO PRN ×2 (10:15)
--- NOTE | 2018-11-17 10:33 | Discharge Summary ---
Discharge Summary (SDC) - Discharge Final Diagnosis: #1 chronic right leg ulcer. 2. End-stage renal disease on hemodialysis increased BMI. 4. Hypertension. Date of Surgery: 11/17/18 Discharge Date: 11/17/18 Condition: Fair Treatment or Instructions: Discharge home [after recovery per ASU criteria]. Diet , [renal],as tolerated, when fully awake advance as tolerated. Activities within moderation encouraged. Follow up in my office by appointment in about [1 week]. Call for appointment. Leave wounds [covered], [keep clean and dry, until office visit in 1 week]. Hold of on school/work [until evaluation in office]. Meds per med rec. May shower [in 48 hrs], [try to keep operated area as dry as possible]. Referrals: AICHA HERNANDEZ DO [Primary Care Provider] - Discharge Diet: Other (Comments) - Renal. Respiratory Treatments at Home: Deep Breathing/Coughing Discharge Activity: Activity As Tolerated Report the Following to Your Physician Immediately: Shortness of Breath, Unusual Bleeding
--- NOTE | 2018-11-17 10:37 | Operative Report ---
Operative Report DATE OF SURGERY: 11/17/18 PREOPERATIVE DIAGNOSIS: #1 chronic right leg ulcer. 2. End-stage renal disease on hemodialysis increased BMI. 4. Hypertension. POSTOPERATIVE DIAGNOSIS: #1 chronic right leg ulcer. 2. End-stage renal disease on hemodialysis increased BMI. 4. Hypertension. OPERATION: 1. Ultrasound evaluation of chronic ulcer right leg. 2. Incisional biopsy of right leg ulcer. SURGEON: ROXIE VILLEGAS PENSIONHOLDER INFORMATION CLERK: None. ANESTHESIA: LMAC TISSUE REMOVED OR ALTERED: Portion of right leg ulcer. COMPLICATIONS: None. ESTIMATED BLOOD LOSS: 2 mL. INTRAOPERATIVE FINDINGS: Of 2 ulcers of the right leg mid lateral each about 0.3 to 0.5 cm across. Each area of induration in the skin and subcutaneous tissues for about 5 cm around each. The inferior larger than the superior. Inferior was 1 biopsied. The ulcer has a shaggy base. Is round and more or less re gular. PROCEDURE: PROCEDURE: The right leg was prepared with [Betadine] and draped out with sterile linen. After the"universal time-out", in which it was confirmed that the patient [did receive antibiotic], the procedure commenced. A sterile sheath ultrasound probe was used to evaluate the area of induration and only a slight edema was appreciated in the immediate subcutaneous area. The patient was appropriately anesthetized. The wound was probed. An incision was made extending from the middle of the wound beyond the edge and into normal-looking tissues. It extended into the subcutaneous tissue so as to take a wedge or a slice of the ulcer which was entirely field sales representative including adjacent compartment normal tissue. The specimen measures approximately 1.5 mm x 1 cm by about 0.5 mm deep. It was submitted for pathology. The remainder of the ulceration was excised and debrided sharply and submitted for culture. This was submitted for tissue culture in gel. .The wound was now irrigated with saline and [Surgicel] placed within it, dressed and the procedure concluded.
[2018-11-17] MEDS ORDERED: OXYCODONE-ACETAMINOPHEN 5-325 MG TABLET ONE (11:07)
[2018-11-17 12:29] VITALS: BP 157/97
== END 2018-11-17 12:15 | disposition home or self-care (01) ==
LOC: OROUT 07:12
PROVIDERS: ATTEND Surgery
DX: L97.912 Non-pressure chronic ulcer of unspecified part of right lower leg with fat layer exposed (principal); I12.0 Hypertensive chronic kidney disease with stage 5 chronic kidney disease or end stage renal disease; N18.6 End stage renal disease; E03.9 Hypothyroidism, unspecified; G43.909 Migraine, unspecified, not intractable, without status migrainosus; M10.9 Gout, unspecified; G47.33 Obstructive sleep apnea (adult) (pediatric); K42.9 Umbilical hernia without obstruction or gangrene; M51.26 Other intervertebral disc displacement, lumbar region; Z01.818 Encounter for other preprocedural examination; Z99.2 Dependence on renal dialysis; Z88.2 Allergy status to sulfonamides; Z79.899 Other long term (current) drug therapy; Z88.8 Allergy status to other drugs, medicaments and biological substances; Z99.89 Dependence on other enabling machines and devices; Z88.3 Allergy status to other anti-infective agents
CPT/HCPCS: 36415; 87070; 87205; 85027; 87075; 80048; 88305 ×2; 71045; 00400; 27613; J2250; A9270 ×2; J3490 ×3; J0690; J3010; J2704; 400

== ENCOUNTER 2019-05-15 09:53 | Emergency (ER) | payer MEDICARE, MEDICAID ==
--- NOTE | 2019-05-15 10:26 | ER Document Report ---
ED Medical Screen (RME) - General Chief Complaint: Cold Symptoms Stated Complaint: COLD/CONGESTION Time Seen by Provider: 05/15/19 10:22 Primary Care Provider: AICHA HERNANDEZ DO [Primary Care Provider] - Follow up as needed Mode of Arrival: Wheelchair Information source: Patient Notes: This 39-year-old dialysis patient with history of asthma and hypertension and hypothyroidism presents today with complaints of coughing up lots of green mucus with vomiting yesterday after dialysis. Also complains of sore throat and headache. Took Zofran at home and Tylenol without relief of symptoms. Respiratory rate even unlabored I have greeted and performed a rapid initial assessment of this patient. A comprehensive ED assessment and evaluation of the patient, analysis of test results and completion of the medical decision making process will be conducted by additional ED providers. Dictation of this chart was performed using voice recognition software; therefore, there may be some unintended grammatical errors. TRAVEL OUTSIDE OF THE [place] IN LAST 30 DAYS: No - Related Data Allergies/Adverse Reactions: aspirin [Aspirin] Allergy (Severe, Verified 05/15/19 10:22) Anaphylaxis Sulfa (Sulfonamide Antibiotics) Allergy (Severe, Verified 05/15/19 10:22) Anaphylaxis caffeine Adverse Reaction (Verified 05/15/19 10:22) vancomycin Adverse Reaction (Verified 05/15/19 10:22) Past Medical History - Past Medical History Cardiac Medical History: Reports: Hx Hypercholesterolemia, Hx Hypertension Denies: Hx Coronary Artery Disease, Hx Heart Attack Pulmonary Medical History: Reports: Hx Asthma, Hx Bronchitis, Hx Sleep Apnea Denies: Hx COPD, Hx Pneumonia Neurological Medical History: Denies: Hx Cerebrovascular Accident, Hx Seizures, Hx Parkinson's Disease Endocrine Medical History: Reports: Hx Hypothyroidism Renal/ Medical History: Reports: Hx End Stage Renal Disease, Hx Hemodialysis. Denies: Hx Peritoneal Dialysis GI Medical History: Reports: Hx Gastroesophageal Reflux Disease, Hx Hiatal Hernia, Hx Colonoscopy Musculoskeltal Medical History: Reports Hx Arthritis - hands, HIPS, Reports Hx Gout, Reports Hx Musculoskeletal Deformity - Degenerative joint disease Psychiatric Medical History: Reports: Hx Depression Traumatic Medical History: Reports: Hx Fractures - right ankle Past Surgical History: Reports: Hx Kidney (Renal Surgery), Hx Vascular Surgery - AV fistula - Immunizations Hx Diphtheria, Pertussis, Tetanus Vaccination: No Physical Exam - Vital signs Vitals: Temp Pulse Resp BP Pulse Ox 98.7 F 93 28 H 147/86 H 95 05/15/19 09:58 05/15/19 09:58 05/15/19 09:58 05/15/19 09:58 05/15/19 09:58 Course - Vital Signs Vital signs: Temp Pulse Resp BP Pulse Ox 98.7 F 93 28 H 147/86 H 95 05/15/19 09:58 05/15/19 09:58 05/15/19 09:58 05/15/19 09:58 05/15/19 09:58 Doctor's Discharge - Discharge Referrals: AICHA HERNANDEZ DO [Primary Care Provider] - Follow up as needed
--- NOTE | 2019-05-15 12:10 | RADIOLOGY REPORT (SQ) ---
EXAM DESCRIPTION: CHEST 2 VIEWS COMPLETED DATE/TIME: 05/15/2019 11:28 am REASON FOR STUDY: cough vomiting COMPARISON: 11/17/2018 NUMBER OF VIEWS: Two views. TECHNIQUE: Frontal and lateral radiographic views of the chest acquired. LIMITATIONS: None. FINDINGS: LUNGS AND PLEURA: No opacities, masses or pneumothorax. No pleural effusion. MEDIASTINUM AND HILAR STRUCTURES: No masses or contour abnormality. HEART AND VASCULAR STRUCTURES: Cardiac enlargement. Vascular congestion. BONES: No acute findings. HARDWARE: None in the chest. OTHER: No other significant finding. IMPRESSION: CARDIAC ENLARGEMENT. VASCULAR CONGESTION. TECHNICAL DOCUMENTATION: JOB ID: [id number] [employer]- All Rights Reserved Reading location - IP/workstation name: [email or web address]
[2019-05-15 12:37] LABS: ABSOLUTE BASOPHILS # (AUTO) 0.1 10^3/uL (0.0-0.2); ABSOLUTE EOSINOPHILS # (AUTO) 0.6 10^3/uL (0.0-0.6); ABSOLUTE LYMPHOCYTES (AUTO) 0.4 10^3/uL (0.5-4.7); ABSOLUTE MONOCYTES (AUTO) 0.3 10^3/uL (0.1-1.4); ABSOLUTE NEUT (AUTO) 4.5 10^3/uL (1.7-8.2); EOSINOPHILS % (AUTO) 9.6 % (0-6); HEMATOCRIT 34.3 % (37.9-51.0); HEMOGLOBIN 10.9 g/dL (13.5-17.0); LYMPHOCYTES % (AUTO) 6.8 % (13-45); MEAN CORPUSCULAR HEMOGLOBIN 30.1 pg (27.0-33.4); MEAN CORPUSCULAR HGB CONC 31.9 g/dL (32.0-36.0); MEAN CORPUSCULAR VOLUME 95 fl (80-97); MONOCYTES % (AUTO) 4.4 % (3-13); PLATELET COUNT 167 10^3/uL (150-450); RED BLOOD COUNT 3.63 10^6/uL (4.35-5.55); RED CELL DISTRIBUTION WIDTH 19.8 % (11.5-14.0); SEGMENTED NEUTROPHILS % (AUTO) 78.2 % (42-78); TOTAL CELLS COUNTED % (AUTO) 100 %; WHITE BLOOD COUNT 5.8 10^3/uL (4.0-10.5)
[2019-05-15 12:52] LABS: ALKALINE PHOSPHATASE 86 U/L (38-126); ASPARTATE AMINO TRANSFERASE 19 U/L (17-59); BILIRUBIN,DIRECT 0.4 mg/dL (0.0-0.4); BILIRUBIN,TOTAL 0.6 mg/dL (0.2-1.3); BLOOD UREA NITROGEN 19 mg/dL (7-20); CALCIUM 8.3 mg/dL (8.4-10.2); CARBON DIOXIDE 29 mmol/L (22-30); CHLORIDE 92 mmol/L (98-107); GLUCOSE 75 mg/dL (75-110); POTASSIUM 3.9 mmol/L (3.6-5.0); TOTAL PROTEIN 8.5 g/dL (6.3-8.2)
[2019-05-15 12:57] LABS: ANION GAP 20 (5-19)
--- NOTE | 2019-05-15 14:48 | ER Document Report ---
ED Respiratory Problem - General Chief Complaint: Chest Congestion Stated Complaint: COLD/CONGESTION Time Seen by Provider: 05/15/19 10:22 Primary Care Provider: AICHA HERNANDEZ DO [Primary Care Provider] - Follow up as needed Mode of Arrival: Wheelchair TRAVEL OUTSIDE OF THE [place] IN LAST 30 DAYS: No - HPI Notes: 39-year-old male to the emergency department with complaints of cough, congestion, shortness of breath, sore throat for the past three days. States that he is an ESRD patient and typically gets his dialysis every MWF. States he did sit for a partial session yesterday (3.5 hours out of his normal 4.5 hours) but that he was coughing so much that he began to vomit. States that he stopped his session and went home. States that cough is getting worse. States that he has been having production of green sputum. He admits to chills and night sweats but denies a measured temperature. He has not taken anything fro his symptoms. Denies any sick contacts. States he did get a flu shot this season. He states he is on dialysis as a result of uncontrolled HTN. 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 - Related Data Allergies/Adverse Reactions: aspirin [Aspirin] Allergy (Severe, Verified 05/15/19 10:22) Anaphylaxis Sulfa (Sulfonamide Antibiotics) Allergy (Severe, Verified 05/15/19 10:22) Anaphylaxis caffeine Adverse Reaction (Verified 05/15/19 10:22) vancomycin Adverse Reaction (Verified 05/15/19 10:22) Home Medications: atenolol. oxycodone. synthroid. sensopar. dialysis vitamins Past Medical History - General Information source: Patient - Social History Smoking Status: Never Smoker Chew tobacco use (# tins/day): No Drug Abuse: None Family History: Arthritis, CAD, COPD, CVA, Hyperlipidemia, Hypertension, Malignancy Patient has suicidal ideation: No Patient has homicidal ideation: No - Past Medical History Cardiac Medical History: Reports: Hx Hypercholesterolemia, Hx Hypertension Denies: Hx Coronary Artery Disease, Hx Heart Attack Pulmonary Medical History: Reports: Hx Asthma, Hx Bronchitis, Hx Sleep Apnea Denies: Hx COPD, Hx Pneumonia Neurological Medical History: Denies: Hx Cerebrovascular Accident, Hx Seizures, Hx Parkinson's Disease Endocrine Medical History: Reports: Hx Hypothyroidism Renal/ Medical History: Reports: Hx End Stage Renal Disease, Hx Hemodialysis. Denies: Hx Peritoneal Dialysis GI Medical History: Reports: Hx Gastroesophageal Reflux Disease, Hx Hiatal Hernia, Hx Colonoscopy Musculoskeletal Medical History: Reports Hx Arthritis - hands, HIPS, Reports Hx Gout, Reports Hx Musculoskeletal Deformity - Degenerative joint disease Psychiatric Medical History: Reports: Hx Depression Traumatic Medical History: Reports: Hx Fractures - right ankle Past Surgical History: Reports: Hx Kidney (Renal Surgery), Hx Vascular Surgery - AV fistula - Immunizations Hx Diphtheria, Pertussis, Tetanus Vaccination: No Hx Pneumococcal Vaccination: 06/02/10 Review of Systems - Review of Systems Constitutional: See HPI, Chills EENT: Throat pain Cardiovascular: denies: Chest pain, Palpitations, Heart racing, Orthopnea, Dyspnea, Dizziness, Lightheaded Respiratory: See HPI, Cough, Short of breath, Sputum Gastrointestinal: Vomiting - Tussive vomiting. denies: Abdominal pain, Diarrhea Genitourinary: No symptoms reported Male Genitourinary: No symptoms reported Musculoskeletal: No symptoms reported Skin: No symptoms reported Hematologic/Lymphatic: No symptoms reported Neurological/Psychological: No symptoms reported -: Yes All other systems reviewed and negative Physical Exam - Vital signs Vitals: Temp Pulse Resp BP Pulse Ox 98.7 F 93 28 H 147/86 H 95 05/15/19 09:58 05/15/19 09:58 05/15/19 09:58 05/15/19 09:58 05/15/19 09:58 Interpretation: Hypertensive, Tachypneic Notes: Patient was found to be hypoxic when he arrived to the emergency department and placed on 2 L of oxygen. He does not use oxygen on a regular basis. - General General appearance: Alert, Other - obese, laying on side. He has noted and audible gurgling congestion - HEENT Head: Normocephalic Eyes: Normal Pupils: PERRL Ears: Normal External canal: Normal Tympanic membrane: Normal Sinus: Normal Nasal: Normal Mouth/Lips: Normal Mucous membranes: Normal Pharynx: Normal. No: Peritonsillar abscess, Retropharyngeal abscess, Tonsillar hypertrophy, Uvular edema, Potential airway comprom. Neck: Normal, Supple. No: Lymphadenopathy, Meningismus - Respiratory Respiratory status: No respiratory distress. No: Retractions, Tachypnea, Tripod position Chest status: Nontender. No: Pain with deep breathing, Accessory muscle use Breath sounds: Rhonchi, Wheezing - there are bilateral lower lung field wheezing and rhonchi. Chest palpation: Normal - Cardiovascular Rhythm: Regular Heart sounds: Normal auscultation Murmur: No - Abdominal Inspection: Normal Distension: No distension Bowel sounds: Normal Tenderness: Nontender. No: Tender, McBurney's point, Doyle's sign, Guarding, Rebound Organomegaly: No organomegaly - Back Back: Normal, Nontender. No: CVA tenderness - Neurological Neuro grossly intact: Yes Cognition: Normal Orientation: AAOx4 [place] Coma Scale Eye Opening: Spontaneous [place] Coma Scale Verbal: Oriented [place] Coma Scale Motor: Obeys Commands [place] Coma Scale Total: 15 Speech: Normal Motor strength normal: LUE, RUE, LLE, RLE Sensory: Normal - Psychological Associated symptoms: Normal affect, Normal mood - Skin Skin Temperature: Warm Skin Moisture: Dry Skin Color: Normal Course - Re-evaluation Re-evalutation: 05/15/19 Patient states he feels better after breathing treatment. Still on 2 L of O2 which is not his normal. Took him off the 2 L and he would trend between 88-93% on RA. Thus decided to ambulate the patient. His O2 sat decreases down to 83%. He was placed back on 2 L O2 once back in the bed. Discussed patient presentation as well as imaging and poor ambulation testing with Dr. Andrea, ER attending. He agrees that patient will likely need admission. We will obtain ABG. Will go ahead and cover with Abx for infectious etiology since CTA states cannot exclude infectious etiology. Discussed this plan with patient and he agrees. 05/15/19 20:13 Discussed patient with AMANDA Leigh. She will assume care. Await ABG. She will call hospitalist team for admission. - Vital Signs Vital signs: Temp Pulse Resp BP Pulse Ox 98.7 F 93 22 H 156/97 H 92 05/15/19 10:22 05/15/19 09:58 05/15/19 18:06 05/15/19 18:06 05/15/19 18:06 - Laboratory Result Diagrams: 05/15/19 12:22 05/15/19 12:22 Laboratory results interpreted by me: 05/15/19 05/15/19 05/15/19 12:22 12:22 12:22 RBC 3.63 L Hgb 10.9 L Hct 34.3 L MCHC 31.9 L RDW 19.8 H Lymph % (Auto) 6.8 L Eos % (Auto) 9.6 H Absolute Lymphs (auto) 0.4 L Seg Neutrophils % 78.2 H Chloride 92 L Anion Gap 20 H Creatinine 10.58 H Est GFR ( Amer) 7 L Est GFR (MDRD) Non-Af 5 L Calcium 8.3 L NT-Pro-B Natriuret Pep 3470 H Total Protein 8.5 H - Diagnostic Test Radiology reviewed: Image reviewed Discharge - Discharge Clinical Impression: Hypoxia, Cough Condition: Stable Disposition: OTHER Referrals: AICHA HERNANDEZ DO [Primary Care Provider] - Follow up as needed
--- NOTE | 2019-05-15 14:49 | EKG REPORT ---
SEVERITY:- BORDERLINE ECG - SINUS RHYTHM LEFT AXIS DEVIATION BORDERLINE PROLONGED QT INTERVAL : Confirmed by: Kurtis Valle MD 15-May-2019 14:49:01
[2019-05-15] MEDS ORDERED: IPRATROPIUM/ALBUTEROL 0.5-2.5 MG/3 ML AMPUL NEB ONE ×4 (15:02→20:55)
[2019-05-15] MEDS ORDERED: METHYLPREDNISOLONE INJ 125 MG/2 ML SDV IV ONE (15:46)
[2019-05-15 17:30] LABS: TROPONIN I 0.03 ng/mL
--- NOTE | 2019-05-15 19:15 | RADIOLOGY REPORT (SQ) ---
EXAM DESCRIPTION: CTA CHEST COMPLETED DATE/TIME: 05/15/2019 6:56 pm REASON FOR STUDY: cough, SOB, hypoxia COMPARISON: 05/15/2019 and 11/17/2018 TECHNIQUE: CT scan of the chest performed using helical scanning technique with dynamic intravenous contrast injection. Images reviewed with lung, soft tissue and bone windows. Reconstructed coronal and sagittal MPR images reviewed. Additional 3 dimensional post-processing performed to develop Maximal Intensity Projection images (WA P). All images stored on PACS. All CT scanners at this facility use dose modulation, iterative reconstruction, and/or weight based d osing when appropriate to reduce radiation dose to as low as reasonably achievable (ALARA). [facility]: Dose Right [facility]: CareDose [facility]: Dose Right [facility]: Teradose 4D [facility]: YottaMark CONTRAST TYPE AND DOSE: contrast/concentration: Isovue 350.00 mg/ml; Total Contrast Delivered: 75.0 ml; Total Saline Delivered: 80.0 ml Contrast bolus optimized for the pulmonary arteries. Not diagnostic for the aorta. RENAL FUNCTION: BUN 19; creatinine 10.58 RADIATION DOSE: CT Rad equipment meets quality standard of care and radiation dose reduction techniq ues were employed. CTDIvol: 8.3 - 40.8 mGy. DLP: 1413 mGy-cm. . LIMITATIONS: None. FINDINGS: LUNGS AND PLEURA: Increased interstitial markings and vascular congestion. No masses, inf iltrates, or pneumothorax. No pleural effusions or pleural calcifications. AORTA AND GREAT VESSELS: No aneurysm. Contrast bolus not optimized for the aorta. HEART: Small pericardial effusion. A 6.2 x 3.7 x 5.5 cm multilocular cystic structure seen in the re gion of the right cardiophrenic angle demonstrates an imperceptible wall, abutting the pericardium, d emonstrating homogeneous low-attenuation, consistent with a pericardial cyst. Note is again made of cardiomegaly. Moderate to marked coronary artery calcifications. PULMONARY ARTERIES: No emboli visualized in the main pulmonary arteries or the segmental branches. HILAR AND MEDIASTINAL STRUCTURES: No identified masses or abnormal nodes. A prominent hiatal hernia is present. HARDWARE: None in the chest. UPPER ABDOMEN: No significant findings. Limited exam. THYROID AND OTHER SOFT TISSUES: No masses. No adenopathy. BONES: No acute or significant finding. 3D MIPS: Confirm above findings. OTHER: No other significant finding. IMPRESSION: No pulmonary embolus. Cardiomegaly with small pericardial effusion. Increased intersti tial pulmonary markings with vascular congestion. These findings suggest positive fluid balance. In fectious etiology is not excluded. 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
[2019-05-15] MEDS ORDERED: CEFTRIAXONE 1 GM/D5W RTU 1 GM/50 ML RTUPB IV ONE (20:00)
[2019-05-15 20:09] LABS: ARTERIAL BLOOD BASE EXCESS -0.8 mmol/L; ARTERIAL BLOOD H2CO3 2.04 mmol/L (1.05-1.35); ARTERIAL BLOOD HCO3 27.9 mmol/L (20-24); ARTERIAL BLOOD O2 SATURATION 44.9 % (94-98); ARTERIAL BLOOD PCO2 67.9 mmHg (35-45); ARTERIAL BLOOD PH 7.23 (7.35-7.45); ARTERIAL BLOOD TOTAL CO2 29.9 mmol/L (23-27)
[2019-05-15 20:14] LABS: ARTERIAL BLOOD FIO2 6L; ARTERIAL BLOOD PO2 29.9 mmHg (80-100)
[2019-05-15 20:44] LABS: A TYPE INFLUENZA AG NEGATIVE (NEGATIVE); B INFLUENZA AG NEGATIVE (NEGATIVE)
[2019-05-16 01:40] VITALS: BP 132/80
== END 2019-05-16 01:40 | disposition other institution (70) ==
LOC: ER 09:53
DX: J45.909 Unspecified asthma, uncomplicated (principal); R09.02 Hypoxemia; R06.02 Shortness of breath; I12.0 Hypertensive chronic kidney disease with stage 5 chronic kidney disease or end stage renal disease; N18.6 End stage renal disease; Z99.2 Dependence on renal dialysis; R05 Cough; R11.10 Vomiting, unspecified; R07.0 Pain in throat; R68.83 Chills (without fever); R61 Generalized hyperhidrosis; E66.9 Obesity, unspecified; E03.9 Hypothyroidism, unspecified; Z79.899 Other long term (current) drug therapy; Z79.891 Long term (current) use of opiate analgesic; Z87.892 Personal history of anaphylaxis; Z88.8 Allergy status to other drugs, medicaments and biological substances; Z88.2 Allergy status to sulfonamides
CPT/HCPCS: 93005; 36415; 87040; 87070; 87880; 82803; 85025; 80053; 84484; 83605; 87804; 83880; 71046; 71275; 93010; J2930; J0696; A9270; 94640; 96365; 96366; 96375; 99285; J7620

== ENCOUNTER 2019-05-22 20:38 | Emergency (ER) | payer MEDICARE, MEDICAID ==
--- NOTE | 2019-05-22 20:59 | ER Document Report ---
ED Medical Screen (RME) - General Chief Complaint: Chest Pain Stated Complaint: CHEST PAIN/TROUBLE BREATHING Time Seen by Provider: 05/22/19 20:55 Primary Care Provider: AICHA HERNANDEZ DO [Primary Care Provider] - Follow up as needed Mode of Arrival: Wheelchair Information source: Patient Notes: 39-year-old male with ESRD presents the emergency department with cough, congestion, shortness of breath. Patient reports discharge yesterday from [facility]. Last dialysis was yesterday. Denies history of CHF or COPD. Oxygen saturations in triage ranging 88 to 90%. Patient speaking in full complete sentences, no obvious respiratory distress noted. I have greeted and performed a rapid initial assessment of this patient. A comprehensive ED assessment and evaluation of the patient, analysis of test results and completion of the medical decision making process will be conducted by additional ED providers. I have specifically instructed the patient or fami ly members with the patient to immediately return to any nursing staff should anything change in the patient's condition or with their chief complaint. TRAVEL OUTSIDE OF THE [place] IN LAST 30 DAYS: No - Related Data Allergies/Adverse Reactions: aspirin [Aspirin] Allergy (Severe, Verified 05/15/19 10:22) Anaphylaxis Sulfa (Sulfonamide Antibiotics) Allergy (Severe, Verified 05/15/19 10:22) Anaphylaxis caffeine Adverse Reaction (Verified 05/15/19 10:22) vancomycin Adverse Reaction (Verified 05/15/19 10:22) Past Medical History - Past Medical History Cardiac Medical History: Reports: Hx Hypercholesterolemia, Hx Hypertension Denies: Hx Coronary Artery Disease, Hx Heart Attack Pulmonary Medical History: Reports: Hx Asthma, Hx Bronchitis, Hx Sleep Apnea Denies: Hx COPD, Hx Pneumonia Neurological Medical History: Denies: Hx Cerebrovascular Accident, Hx Seizures, Hx Parkinson's Disease Endocrine Medical History: Reports: Hx Hypothyroidism Renal/ Medical History: Reports: Hx End Stage Renal Disease, Hx Hemodialysis. Denies: Hx Peritoneal Dialysis GI Medical History: Reports: Hx Gastroesophageal Reflux Disease, Hx Hiatal H ernia, Hx Colonoscopy Musculoskeltal Medical History: Reports Hx Arthritis - hands, HIPS, Reports Hx Gout, Reports Hx Musculoskeletal Deformity - Degenerative joint disease Psychiatric Medical History: Reports: Hx Depression Traumatic Medical History: Reports: Hx Fractures - right ankle Past Surgical History: Reports: Hx Kidney (Renal Surgery), Hx Vascular Surgery - AV fistula - Immunizations Hx Diphtheria, Pertussis, Tetanus Vaccination: No Doctor's Discharge - Discharge Referrals: AICHA HERNANDEZ DO [Primary Care Provider] - Follow up as needed
--- NOTE | 2019-05-22 21:24 | EKG REPORT ---
SEVERITY:- BORDERLINE ECG - SINUS RHYTHM LEFT AXIS DEVIATION BORDERLINE PROLONGED QT INTERVAL : Confirmed by: Manuel Tineo 22-May-2019 21:23:39
[2019-05-22 21:34] LABS: ABSOLUTE EOSINOPHILS # (AUTO) 0.3 10^3/uL (0.0-0.6); ABSOLUTE LYMPHOCYTES (AUTO) 0.7 10^3/uL (0.5-4.7); ABSOLUTE MONOCYTES (AUTO) 0.3 10^3/uL (0.1-1.4); ABSOLUTE NEUT (AUTO) 2.7 10^3/uL (1.7-8.2); HEMATOCRIT 32.4 % (37.9-51.0); HEMOGLOBIN 10.5 g/dL (13.5-17.0); LYMPHOCYTES % (AUTO) 18.2 % (13-45); MEAN CORPUSCULAR HEMOGLOBIN 30.8 pg (27.0-33.4); MEAN CORPUSCULAR HGB CONC 32.3 g/dL (32.0-36.0); MEAN CORPUSCULAR VOLUME 95 fl (80-97); PLATELET COUNT 191 10^3/uL (150-450); RED BLOOD COUNT 3.41 10^6/uL (4.35-5.55); RED CELL DISTRIBUTION WIDTH 19.7 % (11.5-14.0); SEGMENTED NEUTROPHILS % (AUTO) 65.8 % (42-78); TOTAL CELLS COUNTED % (AUTO) 100 %; WHITE BLOOD COUNT 4.1 10^3/uL (4.0-10.5)
[2019-05-22] MEDS ORDERED: IPRATROPIUM/ALBUTEROL 0.5-2.5 MG/3 ML AMPUL NEB ONE (21:35)
--- NOTE | 2019-05-22 21:39 | ER Document Report ---
ED General - General Chief Complaint: Shortness Of Breath Stated Complaint: CHEST PAIN/TROUBLE BREATHING Time Seen by Provider: 05/22/19 20:55 Primary Care Provider: AICHA HERNANDEZ DO [Primary Care Provider] - 05/24/19 Mode of Arrival: Wheelchair Notes: Patient is a 39-year-old male that comes to the emergency department for chief complaint of shortness of breath and worsening productive cough. He states that he was discharged from [facility] on night (almost 2 days ago now), he was discharged on prednisone and an antibiotic that he cannot recall. He denies fevers, chest pain, abdominal pain. He states he has had several episodes of diarrhea today. Denies vomiting. He states that he was initially seen here and transferred to [facility]. He has a history of end-stage renal disease on dialysis, had dialysis yesterday (Friday), follows with Dr. Gomes. He does have a history of asthma and uses albuterol at home. He denies smoking. Remaining medical history is hypertension and hyperlipidemia. TRAVEL OUTSIDE OF THE [place] IN LAST 30 DAYS: No - Related Data Allergies/Adverse Reactions: aspirin [Aspirin] Allergy (Severe, Verified 05/15/19 10:22) Anaphylaxis Sulfa (Sulfonamide Antibiotics) Allergy (Severe, Verified 05/15/19 10:22) Anaphylaxis caffeine Adverse Reaction (Verified 05/15/19 10:22) vancomycin Adverse Reaction (Verified 05/15/19 10:22) Past Medical History - General Information source: Patient - Social History Smoking Status: Never Smoker Frequency of alcohol use: None Drug Abuse: None Lives with: Family Family History: Arthritis, CAD, COPD, CVA, Hyperlipidemia, Hypertension, Malignancy Patient has suicidal ideation: No Patient has homicidal ideation: No - Past Medical History Cardiac Medical History: Reports: Hx Hypercholesterolemia, Hx Hypertension Denies: Hx Coronary Artery Disease, Hx Heart Attack Pulmonary Medical History: Reports: Hx Asthma, Hx Bronchitis, Hx Sleep Apnea Denies: Hx COPD, Hx Pneumonia Neurological Medical History: Denies: Hx Cerebrovascular Accident, Hx Seizures, Hx Parkinson's Disease Endocrine Medical History: Reports: Hx Hypothyroidism Renal/ Medical History: Reports: Hx End Stage Renal Disease, Hx Hemodialysis. Denies: Hx Peritoneal Dialysis GI Medical History: Reports: Hx Gastroesophageal Reflux Disease, Hx Hiatal Hernia, Hx Colonoscopy Musculoskeletal Medical History: Reports Hx Arthritis - hands, HIPS, Reports Hx Gout, Reports Hx Musculoskeletal Deformity - Degenerative joint disease Psychiatric Medical History: Reports: Hx Depression Traumatic Medical History: Reports: Hx Fractures - right ankle Past Surgical History: Reports: Hx Kidney (Renal Surgery), Hx Vascular Surgery - AV fistula - Immunizations Hx Diphtheria, Pertussis, Tetanus Vaccination: No Hx Pneumococcal Vaccination: 06/02/10 Review of Systems - Review of Systems Constitutional: No symptoms reported EENT: No symptoms reported Cardiovascular: No symptoms reported Respiratory: See HPI Gastrointestinal: No symptoms reported Genitourinary: No symptoms reported Male Genitourinary: No symptoms reported Musculoskeletal: No symptoms reported Skin: No symptoms reported Hematologic/Lymphatic: No symptoms reported Neurological/Psychological: No symptoms reported Physical Exam - Vital signs Vitals: Temp Pulse Resp BP Pulse Ox 98.6 F 92 20 133/86 H 88 L 05/22/19 20:56 05/22/19 20:56 05/22/19 20:56 05/22/19 20:56 05/22/19 20:56 - Notes Notes: GENERAL: Alert, interacts well. No acute distress. HEAD: Normocephalic, atraumatic. EYES: Pupils equal, round, and reactive to light. Extraocular movements intact. ENT: Oral mucosa moist, tongue midline. Oropharynx unremarkable. Airway patent. Mild rhinorrhea but still patent nares, no nasal septal hematoma, TM's intact. NECK: Full range of motion. Supple. Trachea midline. LUNGS: No tachypnea or respiratory distress. No wheezing, rales, rhonchi. Intermittent congested coughing episodes. HEART: Regular rate and rhythm. No murmur ABDOMEN: Soft, non-tender. Non-distended. EXTREMITIES: Moves all 4 extremities spontaneously. No edema, normal radial and dorsalis pedis pulses bilaterally. No cyanosis. BACK: no cervical, thoracic, lumbar midline tenderness. No saddle anesthesia, normal distal neurovascular exam. Moves all extremities in full range of motion. NEUROLOGICAL: Alert and oriented x3. Normal speech. Cranial nerves II through XII grossly intact. PSYCH: Normal affect, normal mood. SKIN: Warm, dry, normal turgor. No rashes or lesions noted. Course - Re-evaluation Re-evalutation: On my evaluation patient is talkative, laughing, smiling. He has intermittent congested coughing episodes but his lungs are clear, he has no tachypnea. Patient initially was hypoxic but he is not now, I give him a DuoNeb treatment, he did cough out a lot of sputum, after this his hypoxia resolved. Chest x-ray without significant change, troponin, BNP, CBC, chemistry without significant change from prior. Patient had dialysis yesterday. On reevaluation patient states he feels much better than he did before. He is already on steroids and antibiotics at home. We ambulated the patient, he had no t achycardia, desaturation, or labored breathing. He is not hypoxic off of oxygen. Venous blood gas is unremarkable. As result I discussed with patient, patient will be discharged, he is close follow-up, discussed return precautions at length. Patient states appreciation and agreement. Stable at time of discharge. - Vital Signs Vital signs: Temp Pulse Resp BP Pulse Ox 98.2 F 92 18 146/96 H 97 05/23/19 00:11 05/22/19 20:56 05/23/19 00:11 05/22/19 23:01 05/23/19 00:11 - Laboratory Result Diagrams: 05/22/19 21:20 05/22/19 21:20 Laboratory results interpreted by me: 05/22/19 05/22/19 05/22/19 21:20 21:20 21:20 RBC 3.41 L Hgb 10.5 L Hct 32.4 L RDW 19.7 H Eos % (Auto) 7.0 H Chloride 97 L BUN 35 H Creatinine 10.61 H Est GFR ( Amer) 7 L Est GFR (MDRD) Non-Af 5 L NT-Pro-B Natriuret Pep 6270 H Total Protein 8.5 H - EKG Interpretation by Me Additional EKG results interpreted by me: EKG shows sinus rhythm at a rate of 86, left axis deviation, borderline prolonged QT interval at 484, no T wave inversions or ST segment changes in consecutive leads. Discharge - Discharge Clinical Impression: Productive cough, Shortness of breath Conjunctivitis Qualifiers: Conjunctivitis type: unspecified Laterality: bilateral Qualified Code(s): H10.9 - Unspecified conjunctivitis Condition: Stable Disposition: HOME, SELF-CARE Additional Instructions: Your chest x-ray does not indicate pneumonia, your evaluation is reassuring. I suspect this is bronchitis, continue prednisone, antibiotics, and treatments at home. Follow-up very closely with your primary care provider for additional management. Use the erythromycin for the pinkeye/conjunctivitis as directed. Come back if you are worse including fevers, difficulty breathing, or any other concerning or worsening symptoms. Prescriptions: Erythromycin Base [Erythromycin Oph 1 Gm Oint Ud] 1 applic OD ASDIR PRN #1 tube PRN Reason: Referrals: AICHA HERNANDEZ DO [Primary Care Provider] - 05/24/19
[2019-05-22 21:53] LABS: ALKALINE PHOSPHATASE 69 U/L (38-126); ANION GAP 16 (5-19); ASPARTATE AMINO TRANSFERASE 24 U/L (17-59); BILIRUBIN,DIRECT 0.4 mg/dL (0.0-0.4); BILIRUBIN,TOTAL 0.5 mg/dL (0.2-1.3); BLOOD UREA NITROGEN 35 mg/dL (7-20); CALCIUM 9.2 mg/dL (8.4-10.2); CARBON DIOXIDE 28 mmol/L (22-30); CHLORIDE 97 mmol/L (98-107); GLUCOSE 86 mg/dL (75-110); POTASSIUM 3.9 mmol/L (3.6-5.0); TOTAL PROTEIN 8.5 g/dL (6.3-8.2)
--- NOTE | 2019-05-22 21:55 | RADIOLOGY REPORT (SQ) ---
EXAM DESCRIPTION: XR CHEST 1 VIEW COMPLETED DATE/TME: 05/22/2019 20:59 CLINICAL HISTORY: 39 years, Male, shortness of breath COMPARISON: Prior study from 05/15/2019 NUMBER OF VIEWS: One TECHNIQUE: Single frontal view of the chest was obtained LIMITATIONS: None. FINDINGS: Cardiopericardial silhouette is enlarged. Mediastinal contours are stable. Lungs are clear. No pleural effusion or pneumothorax. IMPRESSION: No acute disease. Stable cardiomegaly. copyright 2010 [employer]- All Rights Reserved
[2019-05-22 22:10] LABS: TROPONIN I 0.048 ng/mL
[2019-05-22 22:50] LABS: VENOUS BLOOD BASE EXCESS -0.2 mmol/L; VENOUS BLOOD PCO2 49.8 mmHg (35-63); VENOUS BLOOD PH 7.34 (7.30-7.42)
[2019-05-22] MEDS ORDERED: HYDROCODONE/ACETAMINOPHEN 5-325 MG TABLET PO ONE (22:55)
[2019-05-22 23:20] VITALS: BP 146/96
[2019-05-22] MEDS ORDERED: ERYTHROMYCIN 0.5% OPH OINTMENT 3.5 GM (ER DISP) OU PRN (23:48)
== END 2019-05-23 00:11 | disposition home or self-care (01) ==
LOC: ER 20:38
DX: R06.02 Shortness of breath (principal); R07.9 Chest pain, unspecified; R06.00 Dyspnea, unspecified; H10.9 Unspecified conjunctivitis; E78.00 Pure hypercholesterolemia, unspecified; I12.0 Hypertensive chronic kidney disease with stage 5 chronic kidney disease or end stage renal disease; N18.6 End stage renal disease; Z99.2 Dependence on renal dialysis; Z88.2 Allergy status to sulfonamides; Z88.3 Allergy status to other anti-infective agents; Z88.6 Allergy status to analgesic agent
CPT/HCPCS: 93005; 94640; 99284; 36415; 87040; 85025; 80053; 84484; 82803; 83880; 71045; 93010; A9270 ×3; J7620

== ENCOUNTER 2019-07-02 14:01 | Emergency (ER) | payer MEDICARE, MEDICAID ==
[2019-07-02 15:10] LABS: ALBUMIN 4.9 g/dL (3.5-5.0); ALKALINE PHOSPHATASE 102 U/L (38-126); ANION GAP 15 (5-19); ASPARTATE AMINO TRANSFERASE 33 U/L (17-59); BILIRUBIN,DIRECT 0.5 mg/dL (0.0-0.4); BILIRUBIN,TOTAL 0.5 mg/dL (0.2-1.3); BLOOD UREA NITROGEN 13 mg/dL (7-20); CALCIUM 8.4 mg/dL (8.4-10.2); CARBON DIOXIDE 28 mmol/L (22-30); CHLORIDE 97 mmol/L (98-107); GLUCOSE 74 mg/dL (75-110); POTASSIUM 3.9 mmol/L (3.6-5.0); TOTAL PROTEIN 8.6 g/dL (6.3-8.2)
[2019-07-02 15:40] LABS: HEMATOCRIT 32.1 % (37.9-51.0); HEMOGLOBIN 10.3 g/dL (13.5-17.0); MEAN CORPUSCULAR HEMOGLOBIN 31.1 pg (27.0-33.4); MEAN CORPUSCULAR VOLUME 97 fl (80-97); PLATELET COUNT 176 10^3/uL (150-450); RED BLOOD COUNT 3.31 10^6/uL (4.35-5.55); RED CELL DISTRIBUTION WIDTH 20.8 % (11.5-14.0); WHITE BLOOD COUNT 2.3 10^3/uL (4.0-10.5)
[2019-07-02 15:48] LABS: CREATINE KINASE 1064 U/L (55-170)
[2019-07-02 16:16] LABS: ABSOLUTE LYMPHOCYTES# (MANUAL) 0.4 10^3/uL (0.5-4.7); ABSOLUTE MONOCYTES # (MANUAL) 0.2 10^3/uL (0.1-1.4); BASOPHILS % (MANUAL) 1 % (0-2); EOSINOPHILS % (MANUAL) 11 % (0-6); LYMPHOCYTES % (MANUAL) 18 % (13-45); MONOCYTES % (MANUAL) 10 % (3-13); SEGMENTED NEUTROPHILS % (MAN) 60 % (42-78); TOTAL CELLS COUNTED 100
[2019-07-02 16:17] LABS: ANISOCYTOSIS 2+; HYPERSEGMENTED NEUTROPHILS PRESENT
[2019-07-02 16:20] LABS: BURR CELLS SLIGHT; POLYCHROMASIA 1+; SCHISTOCYTES 1+
[2019-07-02 16:21] LABS: OVALOCYTES SLIGHT
--- NOTE | 2019-07-02 16:25 | RADIOLOGY REPORT (SQ) ---
EXAM DESCRIPTION: CHEST SINGLE VIEW COMPLETED DATE/TIME: 07/02/2019 4:12 pm REASON FOR STUDY: CP COMPARISON: AP view of the chest 05/22/2019. EXAM PARAMETERS: NUMBER OF VIEWS: One view. TECHNIQUE: An AP view of the chest was obtained. RADIATION DOSE: NA LIMITATIONS: None. FINDINGS: LUNGS AND PLEURA: Low inspiratory lung volumes without a superimposed consolidation, pleur al effusion or pneumothorax. MEDIASTINUM AND HILAR STRUCTURES: No mediastinal or hilar contour abnormality. HEART AND VASCULAR STRUCTURES: Stable cardiomegaly. BONES: No acute findings. HARDWARE: None in the chest. OTHER: No other finding. IMPRESSION: Low inspiratory and cardiomegaly without a superimposed acute cardiopulmonary process. TECHNICAL DOCUMENTATION: JOB ID: [id number] [employer]- All Rights Reserved Reading location - IP/workstation name: [email or web address]
[2019-07-02 16:34] LABS: PLATELET COMMENT ADEQUATE
--- NOTE | 2019-07-02 18:34 | ER Document Report ---
ED General - General Chief Complaint: Chest Pain Stated Complaint: CHEST PAIN Time Seen by Provider: 07/02/19 15:00 Primary Care Provider: AICHA HERNANDEZ DO [Primary Care Provider] - Follow up as needed Mode of Arrival: Medic Information source: Patient, Dr. Tobias, [facility] Records Notes: Patient is a 39-year-old male presenting to the emergency department chief complaint of chest pain. Patient states that it started during dialysis. He states it was short and temporary however at the time felt like a 8 out of 10 at time of presentation to the emergency department patient states the pain is 0 out of 10. Patient states the pain was more on his right side. Patient states he had a normal dialysis process today. Patient normally dialyzes Friday. TRAVEL OUTSIDE OF THE [place] IN LAST 30 DAYS: No - HPI Patient complains to provider of: Chest pain during dialysis Onset: Just prior to arrival Onset/Duration: Sudden, Gone Quality of pain: Pressure Severity: Moderate Pain Level: 4 Associated symptoms: None Exacerbated by: Denies Relieved by: Denies Similar symptoms previously: No Recently seen / treated by doctor: No - Related Data Allergies/Adverse Reactions: aspirin [Aspirin] Allergy (Severe, Verified 05/15/19 10:22) Anaphylaxis Sulfa (Sulfonamide Antibiotics) Allergy (Severe, Verified 05/15/19 10:22) Anaphylaxis caffeine Adverse Reaction (Verified 05/15/19 10:22) vancomycin Adverse Reaction (Verified 05/15/19 10:22) Past Medical History - General Information source: Dr. Jatinder Shultz, [facility] Records - Social History Smoking Status: Unknown if Ever Smoked Cigarette use (# per day): No Chew tobacco use (# tins/day): No Smoking Education Provided: No Frequency of alcohol use: None Family History: Arthritis, CAD, COPD, CVA, Hyperlipidemia, Hypertension, Malignancy Patient has suicidal ideation: No Patient has homicidal ideation: No - Past Medical History Cardiac Medical History: Reports: Hx Hypercholesterolemia, Hx Hypertension Denies: Hx Coronary Artery Disease, Hx Heart Attack Pulmonary Medical History: Reports: Hx Asthma, Hx Bronchitis, Hx Sleep Apnea Denies: Hx COPD, Hx Pneumonia Neurological Medical History: Denies: Hx Cerebrovascular Accident, Hx Seizures, Hx Parkinson's Disease Endocrine Medical History: Reports: Hx Hypothyroidism Renal/ Medical History: Reports: Hx End Stage Renal Disease, Hx Hemodialysis. Denies: Hx Peritoneal Dialysis GI Medical History: Reports: Hx Gastroesophageal Reflux Disease, Hx Hiatal Hernia, Hx Colonoscopy Musculoskeletal Medical History: Reports Hx Arthritis - hands, HIPS, Reports Hx Gout, Reports Hx Musculoskeletal Deformity - Degenerative joint disease Psychiatric Medical History: Reports: Hx Depression Traumatic Medical History: Reports: Hx Fractures - right ankle Past Surgical History: Reports: Hx Kidney (Renal Surgery), Hx Vascular Surgery - AV fistula - Immunizations Hx Diphtheria, Pertussis, Tetanus Vaccination: No Hx Pneumococcal Vaccination: 06/02/10 Review of Systems - Review of Systems Constitutional: No symptoms reported EENT: No symptoms reported Cardiovascular: Chest pain Respiratory: No symptoms reported Gastrointestinal: No symptoms reported Genitourinary: No symptoms reported Male Genitourinary: No symptoms reported Musculoskeletal: No symptoms reported Skin: No symptoms reported Hematologic/Lymphatic: No symptoms reported Neurological/Psychological: No symptoms reported -: Yes All other systems reviewed and negative Physical Exam - Vital signs Vitals: Resp 07/02/19 14:30 - Notes Notes: At time of exam patient is sleeping and needs to be awakened and states that he is in no acute distress at this time. HEENT: Normocephalic atraumatic pupils equal round reactive to light extraocular muscles are intact conjunctiva are minimally injected Neck: trachea is midline no obvious JVD Chest: nontender to palpation no obvious wheezes rales or rhonchi there is minimal crackles to the bases and poor excursion Cardiac: Regular rhythm and rate no gallops murmurs or rubs Abdomen: morbidly obese bowel sounds present no tenderness no rebound no guarding Extremities: 1+ edema to lower extremities, 2+ pulses x3 exception being patient has a palpable thrill to the left upper extremity at site of dialysis fistula Skin: Warm dry intact Neurologic: Patient is sleeping but does awaken to conversation is appropriate shows no signs of focal neurologic deficit [place] Coma Scale of 15. Course - Re-evaluation Re-evalutation: 07/02/19 18:34 Patient has been maintained in the emergency department on a gambling monitor while present. Patient has been reevaluated several times while in the emergency department and no signs of decompensation have been noted. After evaluation of laboratory EKG and radiologic studies I see no signs of p neumonia, pneumothorax, acute myocardial infarction, unstable angina dissection or pulmonary embolism, there are no signs of rib fractures, no signs of acute coronary syndrome and at this time feel the patient is stable for discharge. I have discussed these results with the patient answered all questions and patient is agreeable with discharge at this time. Patient should follow-up with her primary care provider in the next several days for continued monitoring. Patient should immediately return to the emergency department for worsening symptoms to include severe chest pain/tightness or discomfort, worsening shortness of breath, fever greater than 101 or other concerning signs or symptoms. - Vital Signs Vital signs: Temp Pulse Resp BP Pulse Ox 98 F 22 H 170/92 H 83 L 07/02/19 14:31 07/02/19 16:01 07/02/19 16:01 07/02/19 16:00 - Laboratory Result Diagrams: 07/02/19 15:13 07/02/19 14:31 Laboratory results interpreted by me: 07/02/19 07/02/19 14:31 15:13 WBC 2.3 L RBC 3.31 L Hgb 10.3 L Hct 32.1 L RDW 20.8 H Eosinophils % (Manual) 11 H Abs Neuts (Manual) 1.4 L Abs Lymphs (Manual) 0.4 L Chloride 97 L Creatinine 6.21 H Est GFR ( Amer) 12 L Est GFR (MDRD) Non-Af 10 L Glucose 74 L Direct Bilirubin 0.5 H Creatine Kinase 1064 H Total Protein 8.6 H - Diagnostic Test Radiology reviewed: Reports reviewed - EKG Interpretation by Me EKG shows normal: Sinus rhythm Rate: Normal Rhythm: APC's [place]/QRS: Left axis deviation When compared to previous EKG there are: No significant change Discharge - Discharge Clinical Impression: Chest pain at rest Condition: Stable Disposition: HOME, SELF-CARE Instructions: Angina Episode ([facility]), Chest Pain of Unclear Cause ([facility]) Additional Instructions: Recommend following up with your primary care provider next Friday as previously scheduled. Return to the emergency department for worsening symptoms to include worsening chest pain shortness of breath or palpitations. Continue to take medications as prescribed. Referrals: AICHA HERNANDEZ DO [Primary Care Provider] - Follow up as needed
[2019-07-02 19:02] VITALS: BP 135/107
--- NOTE | 2019-07-03 23:22 | EKG REPORT ---
SEVERITY:- ABNORMAL ECG - SINUS RHYTHM ATRIAL PREMATURE COMPLEX LEFT AXIS DEVIATION NONSPECIFIC T ABNORMALITIES, LATERAL LEADS : Confirmed by: Manuel Tineo 03-Jul-2019 23:22:12
== END 2019-07-02 19:07 | disposition home or self-care (01) ==
LOC: ER 14:01
DX: R07.89 Other chest pain (principal); I49.1 Atrial premature depolarization; J45.909 Unspecified asthma, uncomplicated; I12.0 Hypertensive chronic kidney disease with stage 5 chronic kidney disease or end stage renal disease; N18.6 End stage renal disease; Z99.2 Dependence on renal dialysis; R60.0 Localized edema; Z87.892 Personal history of anaphylaxis; Z88.8 Allergy status to other drugs, medicaments and biological substances; Z88.2 Allergy status to sulfonamides
CPT/HCPCS: 36415; 71045; 80053; 82550; 84484; 85025; 93005; 93010; 99285

== ENCOUNTER 2019-07-25 21:41 | Emergency (ER) | payer MEDICARE, MEDICAID ==
--- NOTE | 2019-07-25 22:47 | ER Document Report ---
ED Medical Screen (RME) - General Chief Complaint: Abdominal Pain Stated Complaint: SIDE AND ABDOMINAL PAIN Time Seen by Provider: 07/25/19 22:33 Primary Care Provider: AICHA HERNANDEZ DO [Primary Care Provider] - Follow up as needed TRAVEL OUTSIDE OF THE [place] IN LAST 30 DAYS: No - HPI Notes: 07/25/19 22:46 39-year-old male to the emergency department with complaints of right lower quadrant abdominal pain for the past several days. He states that it has gotten progressively worse. He states he has had a decrease in his appetite. He denies any nausea or vomiting. He denies any diarrhea. He denies any fevers. He still has an appendix and a gallbladder. He is also a dialysis patient. He sees Dr. Gomes. His dialysis is every Friday, Friday, Friday. He has not missed any dialysis. He denies any chest pain or shortness of breath. I performed a brief medical screening exam on the patient determined that the patient needs further evaluation and management by main side provider. I have placed initial orders to help expedite care. - Related Data Allergies/Adverse Reactions: aspirin [Aspirin] Allergy (Severe, Verified 07/25/19 22:17) Anaphylaxis Sulfa (Sulfonamide Antibiotics) Allergy (Severe, Verified 07/25/19 22:17) Anaphylaxis caffeine Adverse Reaction (Verified 07/25/19 22:17) vancomycin Adverse Reaction (Verified 07/25/19 22:17) Past Medical History - Social History Chew tobacco use (# tins/day): No Frequency of alcohol use: None Drug Abuse: None - Past Medical History Cardiac Medical History: Reports: Hx Hypercholesterolemia, Hx Hypertension Denies: Hx Coronary Artery Disease, Hx Heart Attack Pulmonary Medical History: Reports: Hx Asthma, Hx Bronchitis, Hx Sleep Apnea Denies: Hx COPD, Hx Pneumonia Neurological Medical History: Denies: Hx Cerebrovascular Accident, Hx Seizures, Hx Parkinson's Disease Endocrine Medical History: Reports: Hx Hypothyroidism Renal/ Medical History: Reports: Hx End Stage Renal Disease, Hx Hemodialysis. Denies: Hx Peritoneal Dialysis GI Medical History: Reports: Hx Gastroesophageal Reflux Disease, Hx Hiatal Hernia, Hx Colonoscopy Musculoskeltal Medical History: Reports Hx Arthritis - hands, HIPS, Reports Hx Gout, Reports Hx Musculoskeletal Deformity - Degenerative joint disease Psychiatric Medical History: Reports: Hx Depression Traumatic Medical History: Reports: Hx Fractures - right ankle Past Surgical History: Reports: Hx Kidney (Renal Surgery), Hx Vascular Surgery - AV fistula - Immunizations Hx Diphtheria, Pertussis, Tetanus Vaccination: No Physical Exam - Vital signs Vitals: Temp Pulse Resp BP Pulse Ox 98.3 F 86 20 142/79 H 94 07/25/19 21:46 07/25/19 21:46 07/25/19 21:46 07/25/19 21:46 07/25/19 21:46 Course - Vital Signs Vital signs: Temp Pulse Resp BP Pulse Ox 98.3 F 86 20 142/79 H 94 07/25/19 21:46 07/25/19 21:46 07/25/19 21:46 07/25/19 21:46 07/25/19 21:46 Doctor's Discharge - Discharge Referrals: AICHA HERNANDEZ DO [Primary Care Provider] - Follow up as needed
[2019-07-25 23:40] LABS: ABSOLUTE BASOPHILS # (AUTO) 0.1 10^3/uL (0.0-0.2); ABSOLUTE EOSINOPHILS # (AUTO) 0.4 10^3/uL (0.0-0.6); ABSOLUTE LYMPHOCYTES (AUTO) 0.7 10^3/uL (0.5-4.7); ABSOLUTE MONOCYTES (AUTO) 0.2 10^3/uL (0.1-1.4); ABSOLUTE NEUT (AUTO) 1.8 10^3/uL (1.7-8.2); BASOPHILS % (AUTO) 2.5 % (0-2); EOSINOPHILS % (AUTO) 11.4 % (0-6); HEMATOCRIT 29.6 % (37.9-51.0); LYMPHOCYTES % (AUTO) 20.6 % (13-45); MEAN CORPUSCULAR HEMOGLOBIN 33.8 pg (27.0-33.4); MEAN CORPUSCULAR HGB CONC 33.9 g/dL (32.0-36.0); MEAN CORPUSCULAR VOLUME 100 fl (80-97); MONOCYTES % (AUTO) 6.9 % (3-13); PLATELET COUNT 201 10^3/uL (150-450); RED BLOOD COUNT 2.97 10^6/uL (4.35-5.55); RED CELL DISTRIBUTION WIDTH 20.5 % (11.5-14.0); SEGMENTED NEUTROPHILS % (AUTO) 58.6 % (42-78); TOTAL CELLS COUNTED % (AUTO) 100 %; WHITE BLOOD COUNT 3.2 10^3/uL (4.0-10.5)
[2019-07-26 00:08] LABS: ALKALINE PHOSPHATASE 91 U/L (38-126); ANION GAP 16 (5-19); ASPARTATE AMINO TRANSFERASE 36 U/L (17-59); BILIRUBIN,DIRECT 0.6 mg/dL (0.0-0.4); BILIRUBIN,TOTAL 0.6 mg/dL (0.2-1.3); BLOOD UREA NITROGEN 37 mg/dL (7-20); CALCIUM 8.6 mg/dL (8.4-10.2); CARBON DIOXIDE 27 mmol/L (22-30); CHLORIDE 97 mmol/L (98-107); GLUCOSE 79 mg/dL (75-110); POTASSIUM 4.6 mmol/L (3.6-5.0); TOTAL PROTEIN 8.5 g/dL (6.3-8.2)
--- NOTE | 2019-07-26 00:58 | RADIOLOGY REPORT (SQ) ---
EXAM DESCRIPTION: CT ABDOMEN PELVIS WITH IV CONTRAST COMPLETED DATE/TME: 07/26/2019 00:19 CLINICAL HISTORY: rlq pain COMPARISON: 07/09/2016 TECHNIQUE: CT of the abdomen and pelvis performed following IV administration of 100 mL of Omnipaque 350. FINDINGS: Lung Bases: The visualized lung bases are clear. Small pericardial effusion. Right pericardial cyst. Bones: No destructive bone lesions identified. Abdomen: Liver: The liver has normal size and density. No intrahepatic mass or biliary dilatation. Gallbladder: No calcified gallstones. Spleen, Pancreas, and Adrenal Glands: The spleen, pancreas, and adrenal glands are unremarkable. Kidneys: Bilateral renal atrophy. Vasculature: Aortoiliac atherosclerosis. IVC is unremarkable. The portal vein is patent. The proximal visceral and renal arteries are patent. Stomach: Moderate hiatal hernia with fluid adjacent to the hernia which is relatively stable. Other: No free intraperitoneal air. Small fat-containing umbilical hernia. No free fluid or lymphadenopathy. Pelvis: Bladder: Urinary bladder is unremarkable. Bowel: No dilated loops of large or small bowel. Appendix: Normal appendix. Pelvis: Small fat-containing right inguinal hernia. Prostate is not enlarged. IMPRESSION: 1. No acute inflammatory or obstructive process identified. 2. Small pericardial effusion. 3. Moderate hiatal hernia with mild adjacent free fluid which is relatively stable. 4. Small right fat-containing inguinal hernia. 5. Bilateral renal atrophy. This exam was performed according to our departmental dose-optimization program, which includes automated exposure control, adjustment of the mA and/or kV according to patient size and/or use of iterative reconstruction technique.
[2019-07-26] MEDS ORDERED: HYDROCODONE/ACETAMINOPHEN 5-325 MG (6 TAB/ER DISP) PO PRN (01:36)
--- NOTE | 2019-07-26 01:38 | ER Document Report ---
ED GI/ - General Chief Complaint: Abdominal Pain Stated Complaint: SIDE AND ABDOMINAL PAIN Time Seen by Provider: 07/25/19 22:33 Primary Care Provider: [facility] [Provider Group] - Follow up in 3-5 days Notes: Patient is a 39-year-old male that comes emergency department for chief complaint of lower abdominal pain on the right side for the past several days. He states this is gotten worse, it does hurt to move, he states he is eating less. He denies vomiting, he is still moving his bowels, he denies any urinary symptoms. Patient denies abdominal surgeries. Patient has a history of end- stage renal disease, on dialysis (Friday, Friday, Friday, had dialysis Friday and is due tomorrow). Patient denies chest pain, shortness of breath, flank pain, fever. TRAVEL OUTSIDE OF THE [place] IN LAST 30 DAYS: No - Related Data Allergies/Adverse Reactions: aspirin [Aspirin] Allergy (Severe, Verified 07/25/19 23:37) Anaphylaxis Sulfa (Sulfonamide Antibiotics) Allergy (Severe, Verified 07/25/19 23:37) Anaphylaxis morphine Allergy (Verified 07/25/19 23:37) caffeine Adverse Reaction (Verified 07/25/19 23:37) vancomycin Adverse Reaction (Verified 07/25/19 23:37) Past Medical History - General Information source: Patient - Social History Smoking Status: Never Smoker Chew tobacco use (# tins/day): No Frequency of alcohol use: None Drug Abuse: None Lives with: Family Family History: Arthritis, CAD, COPD, CVA, Hyperlipidemia, Hypertension, Malignancy Patient has suicidal ideation: No Patient has homicidal ideation: No - Past Medical History Cardiac Medical History: Reports: Hx Hypercholesterolemia, Hx Hypertension Denies: Hx Coronary Artery Disease, Hx Heart Attack Pulmonary Medical History: Reports: Hx Asthma, Hx Bronchitis, Hx Sleep Apnea Denies: Hx COPD, Hx Pneumonia Neurological Medical History: Denies: Hx Cerebrovascular Accident, Hx Seizures, Hx Parkinson's Disease Endocrine Medical History: Reports: Hx Hypothyroidism Renal/ Medical History: Reports: Hx End Stage Renal Disease, Hx Hemodialysis. Denies: Hx Peritoneal Dialysis GI Medical History: Reports: Hx Gastroesophageal Reflux Disease, Hx Hiatal Hernia, Hx Colonoscopy Musculoskeletal Medical History: Reports Hx Arthritis - hands, HIPS, Reports Hx Gout, Reports Hx Musculoskeletal Deformity - Degenerative joint disease Psychiatric Medical History: Reports: Hx Depression Traumatic Medical History: Reports: Hx Fractures - right ankle Past Surgical History: Reports: Hx Kidney (Renal Surgery), Hx Vascular Surgery - AV fistula - Immunizations Hx Diphtheria, Pertussis, Tetanus Vaccination: No Hx Pneumococcal Vaccination: 06/02/10 Review of Systems - Review of Systems Constitutional: No symptoms reported EENT: No symptoms reported Cardiovascular: No symptoms reported Respiratory: No symptoms reported Gastrointestinal: See HPI Genitourinary: No symptoms reported Male Genitourinary: No symptoms reported Musculoskeletal: No symptoms reported Skin: No symptoms reported Hematologic/Lymphatic: No symptoms reported Neurological/Psychological: No symptoms reported Physical Exam - Vital signs Vitals: Temp Pulse Resp BP Pulse Ox 98.3 F 86 20 142/79 H 94 07/25/19 21:46 07/25/19 21:46 07/25/19 21:46 07/25/19 21:46 07/25/19 21:46 - Notes Notes: GENERAL: Sleeping but easily aroused. No distress. HEAD: Normocephalic, atraumatic. EYES: Pupils equal, round, and reactive to light. Extraocular movements intact. ENT: Oral mucosa moist, tongue midline. Oropharynx unremarkable. Airway patent. LUNGS: Clear to auscultation bilaterally, no wheezes, rales, or rhonchi. No respiratory distress. HEART: Regular rate and rhythm. No murmur ABDOMEN: Tenderness generally in the right lower abdomen and in the right inguinal area. No guarding or distention. Genitourinary exam unremarkable. EXTREMITIES: Moves all 4 extremities spontaneously. No edema, normal radial and dorsalis pedis pulses bilaterally. No cyanosis. BACK: no cervical, thoracic, lumbar midline tenderness. No saddle anesthesia, normal distal neurovascular exam. Moves all extremities in full range of motion. NEUROLOGICAL: Alert and oriented x3. Normal speech. Cranial nerves II through XII grossly intact. PSYCH: Normal affect, normal mood. SKIN: Warm, dry, normal turgor. No rashes or lesions noted. Course - Re-evaluation Re-evalutation: CBC and chemistry reviewed. Mild leukopenia and anemia are actually at patient's baseline. Chemistry is also patient's baseline. Nonspecific. On my evaluation patient has completed CAT scan, he is sleeping but easily aroused. Patient does have some tenderness in the right lower abdomen and inguinal area but there is no swollen area, there is no noted or incarcerated hernia, there is no particular guarding. The remaining abdomen is completely benign. CT does indicate a right inguinal hernia with fat only but no obstruction or concerning acute findings. Appendix visualized is normal. Patient is very c omfortable in appearance. He does have some pain with moving but he is able to ambulate without difficulty. I discussed the findings, discussed recommendation of surgical clinic follow-up for repair, discussed return precautions in detail. Patient is asking for some symptom management at home and he was provided with this. Patient states appreciation and agreement. Stable at time of discharge. - Vital Signs Vital signs: Temp Pulse Resp BP Pulse Ox 97.9 F 71 20 152/102 H 92 07/26/19 01:50 07/26/19 01:50 07/26/19 01:50 07/26/19 01:50 07/26/19 01:50 - Laboratory Result Diagrams: 07/25/19 23:27 07/25/19 23:27 Laboratory results interpreted by me: 07/25/19 07/25/19 23:27 23:27 WBC 3.2 L RBC 2.97 L Hgb 10.0 L Hct 29.6 L MCV 100 H MCH 33.8 H RDW 20.5 H Eos % (Auto) 11.4 H Baso % (Auto) 2.5 H Chloride 97 L BUN 37 H Creatinine 12.50 H Est GFR ( Amer) 5 L Est GFR (MDRD) Non-Af 5 L Direct Bilirubin 0.6 H Total Protein 8.5 H Discharge - Discharge Clinical Impression: Inguinal hernia Qualifiers: Obstruction and gangrene presence: without obstruction or gangrene Laterality: unilateral Recurrence: not specified as recurrent Qualified Code(s): K40.90 - Unilateral inguinal hernia, without obstruction or gangrene, not specified as recurrent Abdominal pain Qualifiers: Abdominal location: lower abdomen, unspecified Qualified Code(s): R10.30 - Lower abdominal pain, unspecified Condition: Stable Disposition: HOME, SELF-CARE Additional Instructions: In the area of your pain you have a small right inguinal hernia. There is a small amount of fat in there at this time, there is no bowel stuck in the hernia, there is no obstruction. Please follow-up with the surgical clinic referral for additional management, call the listed referral to be seen. Take [id number] pain medication if needed, if needed for worse pain you can take the prescribed pain medication along with stool softeners, however if pain becomes severe, the area becomes bulging, hard, red, or if you start vomiting return to the emergency department. Prescriptions: Polyethylene Glycol 3350 [Miralax Powder 17 gm/Packet] 1 packet PO DAILY PRN #1 pkg PRN Reason: Oxycodone HCl/Acetaminophen [Percocet 5-325 mg Tablet] 1 - 2 tab PO TID PRN #10 tablet PRN Reason: Referrals: [facility] [Provider Group] - Follow up in 3-5 days
[2019-07-26 01:54] VITALS: BP 152/102
== END 2019-07-26 02:30 | disposition home or self-care (01) ==
LOC: ER 21:41
DX: K40.90 Unilateral inguinal hernia, without obstruction or gangrene, not specified as recurrent (principal); R10.30 Lower abdominal pain, unspecified; D72.819 Decreased white blood cell count, unspecified; J45.909 Unspecified asthma, uncomplicated; I12.0 Hypertensive chronic kidney disease with stage 5 chronic kidney disease or end stage renal disease; N18.6 End stage renal disease; Z99.2 Dependence on renal dialysis; Z87.892 Personal history of anaphylaxis; Z88.8 Allergy status to other drugs, medicaments and biological substances; Z88.2 Allergy status to sulfonamides; Z88.6 Allergy status to analgesic agent; Z88.5 Allergy status to narcotic agent
CPT/HCPCS: 99284; 36415; 83690; 85025; 80053; 74177; A9270

== ENCOUNTER 2019-11-03 11:08 | Emergency (ER) | payer OTHER, MEDICARE, MEDICAID ==
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
[2019-11-03 12:58] VITALS: BP 140/70
== END 2019-11-03 13:14 | disposition home or self-care (01) ==
LOC: ER 11:08
DX: S16.1XXA Strain of muscle, fascia and tendon at neck level, initial encounter (principal); M54.5 Low back pain; M54.2 Cervicalgia; V49.40XA Driver injured in collision with unspecified motor vehicles in traffic accident, initial encounter; Y93.89 Activity, other specified; I12.0 Hypertensive chronic kidney disease with stage 5 chronic kidney disease or end stage renal disease; N18.6 End stage renal disease; Z99.2 Dependence on renal dialysis; J45.909 Unspecified asthma, uncomplicated; Z88.8 Allergy status to other drugs, medicaments and biological substances; Z88.2 Allergy status to sulfonamides; Z88.6 Allergy status to analgesic agent; Z88.5 Allergy status to narcotic agent
CPT/HCPCS: 72070; 72110; 72125; 99283

== ENCOUNTER 2020-06-01 08:30 | Emergency (ER) | payer MEDICARE, MEDICAID ==
--- NOTE | 2020-06-01 10:40 | RADIOLOGY REPORT (SQ) ---
EXAM DESCRIPTION: CHEST SINGLE VIEW IMAGES COMPLETED DATE/TIME: 06/01/2020 9:56 am REASON FOR STUDY: cp COMPARISON: 07/02/2019 EXAM PARAMETERS: NUMBER OF VIEWS: One view. TECHNIQUE: Single frontal radiographic view of the chest acquired. RADIATION DOSE: NA LIMITATIONS: None. FINDINGS: LUNGS AND PLEURA: No opacities, masses or pneumothorax. No pleural effusion. MEDIASTINUM AND HILAR STRUCTURES: No masses. Contour normal. HEART AND VASCULAR STRUCTURES: Heart normal in size. Normal vasculature. BONES: No acute findings. HARDWARE: None in the chest. OTHER: No other significant finding. IMPRESSION: NO ACUTE RADIOGRAPHIC FINDING IN THE CHEST. TECHNICAL DOCUMENTATION: JOB ID: [id number] 2010 [employer]- All Rights Reserved Reading location - IP/workstation name: [email or web address]
--- NOTE | 2020-06-01 11:47 | EKG REPORT ---
SEVERITY:- ABNORMAL ECG - SINUS RHYTHM LEFT ANTERIOR FASCICULAR BLOCK BORDERLINE PROLONGED QT INTERVAL : Confirmed by: Bronson Moses MD 01-Jun-2020 11:46:50
[2020-06-01] MEDS ORDERED: OXYCODONE-ACETAMINOPHEN 5-325 MG TABLET PO ONE (12:29)
--- NOTE | 2020-06-01 12:31 | ER Document Report ---
ED General - General Chief Complaint: Chest Pain Stated Complaint: IRREGULAR HEARTBEAT Time Seen by Provider: 06/01/20 10:02 TRAVEL OUTSIDE OF THE [place] IN LAST 30 DAYS: No - HPI Notes: Patient is a 40-year-old male who presents to the emergency department for evaluation of chest pain or shortness of breath. It was prior to arrival, resolved prior to his arrival here in the hospital. He described it as sharp, substernal, with radiation into the back. He has had similar pain in the past when he has been in atrial fibrillation. EMS found him to be in rapid atrial fibrillation and the patient spontaneously converted in route. He states this is happened multiple times in the past. He is on atenolol, continues to take that. He is allergic to aspirin. He had been started on Plavix with his last round of atrial fibrillation, but had a significant GI bleed so this was discontinued. At this time he denies any pain in his chest or difficulty breathing. He complains of "all over pain" which is chronic for him, he normally takes Percocet. Yesterday he went to dialysis and he states that he took off about 5 L of fluid, which is more than he normally has removed. He feels tired today, states this is not abnormal. He no longer urinates. He has been seen by cardiology in consultation for his atrial fibrillation but does not follow with one regularly. - Related Data Allergies/Adverse Reactions: aspirin [Aspirin] Allergy (Severe, Verified 11/03/19 11:25) Anaphylaxis Sulfa (Sulfonamide Antibiotics) Allergy (Severe, Verified 11/03/19 11:25) Anaphylaxis morphine Allergy (Verified 11/03/19 11:25) caffeine Adverse Reaction (Verified 11/03/19 11:25) vancomycin Adverse Reaction (Verified 11/03/19 11:25) Past Medical History - General Information source: Patient, Relative - Social History Smoking Status: Never Smoker Family History: Arthritis, CAD, COPD, CVA, Hyperlipidemia, Hypertension, Malignancy Patient has homicidal ideation: No - Past Medical History Cardiac Medical History: Reports: Hx Hypercholesterolemia, Hx Hypertension Denies: Hx Coronary Artery Disease, Hx Heart Attack Pulmonary Medical History: Reports: Hx Asthma, Hx Bronchitis, Hx Sleep Apnea Denies: Hx COPD, Hx Pneumonia Neurological Medical History: Denies: Hx Cerebrovascular Accident, Hx Seizures, Hx Parkinson's Disease Endocrine Medical History: Reports: Hx Hypothyroidism Renal/ Medical History: Reports: Hx End Stage Renal Disease, Hx Hemodialysis. Denies: Hx Peritoneal Dialysis GI Medical History: Reports: Hx Gastroesophageal Reflux Disease, Hx Hiatal Hernia, Hx Colonoscopy Musculoskeletal Medical History: Reports Hx Arthritis - hands, HIPS, Reports Hx Gout, Reports Hx Musculoskeletal Deformity - Degenerative joint disease Psychiatric Medical History: Reports: Hx Depression Traumatic Medical History: Reports: Hx Fractures - right ankle Past Surgical History: Reports: Hx Kidney (Renal Surgery), Hx Vascular Surgery - AV fistula - Immunizations Hx Diphtheria, Pertussis, Tetanus Vaccination: No Hx Pneumococcal Vaccination: 06/02/10 Review of Systems - Review of Systems Constitutional: See HPI EENT: No symptoms reported Cardiovascular: See HPI Respiratory: See HPI Gastrointestinal: No symptoms reported Genitourinary: No symptoms reported Musculoskeletal: See HPI Skin: No symptoms reported Neurological/Psychological: No symptoms reported Physical Exam - Vital signs Vitals: Resp Pulse Ox 28 H 94 06/01/20 08:34 06/01/20 08:34 - Notes Notes: This is a drowsy 40-year-old male who appears older than his stated age, no acute distress. He is resting comfortably when I walk into the room. He awakes to verbal stimuli, is cooperative examiner. Vital signs reviewed, please refer to chart. Head is normocephalic, atraumatic. Pupils equal round, reactive to light. Neck is supple without meningismus. Heart sounds are distant. Lungs are clear to auscultation bilaterally. Abdomen is soft, nontender, normoactive bowel sounds throughout. Extremities without cyanosis, clubbing. Posterior calves are nontender. Peripheral pulses are equal. Skin is warm and dry. Patient is awake, alert, neurological exam is nonfocal. Course - Re-evaluation Re-evalutation: 06/01/20 12:30 Patient presents to the emergency department for evaluation. He had been found to be in rapid atrial fibrillation initially, which is evidently not a new problem for him. He was brought to the emergency department, placed on the electronic device monitor. Multiple attempts were made at blood draw as well as IV placement, these were unsuccessful, then the patient refused any further intervention. I kept him here on the monitor for some time and he remained in sinus with heart rates from the 50s to the 80s. The patient did eventually agree to another blood draw, but only by the lab. This has been communicated. Otherwise, he is currently stable, he is given his regular Percocet. We will continue to monitor. 06/01/20 14:08 Patient had no recurrence of his chest pain. His laboratory investigations revealed a chronically elevated troponin, but was actually better than it has been in the past. He has an elevated potassium and creatinine, not uncommon in an end-stage renal patient. He has been otherwise stable. He is already on atenolol and his heart rate has been in the 60s and 70s here. He tells me he lan s had "valve problems" in the past. I told him that he needs to have a repeat echocardiogram, but I do not see any reason for this to be done urgently. We will give him referral to our on-call jewelry bench worker, or he can follow-up with his primary care provider for cardiology referral. He is to return to the ED with worsening or new concerning symptoms of any sort. - Vital Signs Vital signs: Temp Pulse Resp BP Pulse Ox 98.8 F 16 131/110 H 96 06/01/20 14:04 06/01/20 14:04 06/01/20 14:04 06/01/20 14:04 - Laboratory Results Result Diagrams: 06/01/20 12:42 06/01/20 12:42 Laboratory Results Interpreted: 06/01/20 06/01/20 06/01/20 12:42 12:42 12:42 WBC 3.4 L RBC 3.49 L Hgb 11.2 L Hct 34.4 L MCV 98 H RDW 18.4 H Eos % (Auto) 13.3 H Potassium 5.3 H BUN 36 H Creatinine 12.00 H Est GFR ( Amer) 6 L Est GFR (MDRD) Non-Af 5 L Creatine Kinase 1368 H CK-MB (CK-2) 7.13 H Total Protein 8.8 H Critical Laboratory Results Reviewed: No Critical Results - Radiology Results Radiology Results Interpreted: 06/01/20 14:09 Chest X-Ray 06/01/20 09:41 IMPRESSION: NO ACUTE RADIOGRAPHIC FINDING IN THE CHEST. Critical Radiology Results Reviewed: No Critical Results - EKG Interpretation by Me Additional EKG results interpreted by me: 06/01/20 12:32 Sinus mechanism with a rate of in the 80s. Left axis deviation. Normal intervals. No acute ST changes concerning for ischemia or infarction. Old studies immediately available for comparison. Discharge - Discharge Clinical Impression: Paroxysmal atrial fibrillation Condition: Stable Disposition: HOME, SELF-CARE Instructions: Atrial Fibrillation ([facility]) Additional Instructions: You did not go back in atrial fibrillation while here in the emergency department. Continue your regular medications as prescribed. You need to follow-up with cardiology as soon as possible. Please follow-up with our on- call jewelry bench worker, or receive referral from your primary care provider. Return to the emergency department with worsening or new concerning symptoms of any sort.
[2020-06-01 13:09] LABS: ABSOLUTE BASOPHILS # (AUTO) 0.1 10^3/uL (0.0-0.2); ABSOLUTE EOSINOPHILS # (AUTO) 0.4 10^3/uL (0.0-0.6); ABSOLUTE LYMPHOCYTES (AUTO) 0.6 10^3/uL (0.5-4.7); ABSOLUTE MONOCYTES (AUTO) 0.3 10^3/uL (0.1-1.4); BASOPHILS % (AUTO) 1.7 % (0-2); EOSINOPHILS % (AUTO) 13.3 % (0-6); HEMATOCRIT 34.4 % (37.9-51.0); HEMOGLOBIN 11.2 g/dL (13.5-17.0); LYMPHOCYTES % (AUTO) 16.6 % (13-45); MEAN CORPUSCULAR HGB CONC 32.5 g/dL (32.0-36.0); MEAN CORPUSCULAR VOLUME 98 fl (80-97); PLATELET COUNT 174 10^3/uL (150-450); RED BLOOD COUNT 3.49 10^6/uL (4.35-5.55); RED CELL DISTRIBUTION WIDTH 18.4 % (11.5-14.0); SEGMENTED NEUTROPHILS % (AUTO) 60.4 % (42-78); TOTAL CELLS COUNTED % (AUTO) 100 %; WHITE BLOOD COUNT 3.4 10^3/uL (4.0-10.5)
[2020-06-01 13:37] LABS: ALKALINE PHOSPHATASE 64 U/L (38-126); ANION GAP 13 (5-19); ASPARTATE AMINO TRANSFERASE 30 U/L (17-59); BILIRUBIN,DIRECT 0.4 mg/dL (0.0-0.4); BILIRUBIN,TOTAL 0.5 mg/dL (0.2-1.3); BLOOD UREA NITROGEN 36 mg/dL (7-20); CALCIUM 8.5 mg/dL (8.4-10.2); CARBON DIOXIDE 29 mmol/L (22-30); CHLORIDE 99 mmol/L (98-107); CREATINE KINASE 1368 U/L (55-170); GLUCOSE 85 mg/dL (75-110); POTASSIUM 5.3 mmol/L (3.6-5.0); TOTAL PROTEIN 8.8 g/dL (6.3-8.2)
[2020-06-01 13:44] LABS: CREATINE KINASE MB 7.13 ng/mL (<4.55); TROPONIN I 0.029 ng/mL
[2020-06-01 15:04] VITALS: BP 131/110
== END 2020-06-01 15:04 | disposition home or self-care (01) ==
LOC: ER 08:30
DX: I48.0 Paroxysmal atrial fibrillation (principal); I12.0 Hypertensive chronic kidney disease with stage 5 chronic kidney disease or end stage renal disease; N18.6 End stage renal disease; Z99.2 Dependence on renal dialysis; R53.83 Other fatigue; G89.29 Other chronic pain; Z79.891 Long term (current) use of opiate analgesic; Z79.899 Other long term (current) drug therapy; Z87.892 Personal history of anaphylaxis; Z88.8 Allergy status to other drugs, medicaments and biological substances; Z88.2 Allergy status to sulfonamides; Z88.6 Allergy status to analgesic agent; Z88.5 Allergy status to narcotic agent
CPT/HCPCS: 93005; 99285; 36415; 82553; 82550; 85025; 80053; 84484; 71045; 93010; A9270

== ENCOUNTER 2020-06-04 10:30 | Emergency (ER) | payer MEDICARE, MEDICAID ==
[2020-06-04] MEDS ORDERED: LIDOCAINE 1% INJ-PF (10 MG/ML) 30 ML SDV INJ ONE (11:23)
[2020-06-04] MEDS ORDERED: CLINDAMYCIN HCL 150 MG CAPSULE PO ONE (12:43)
--- NOTE | 2020-06-04 13:28 | ER Document Report ---
Entered by LAURA ALEXIS SCRIBE 06/04/20 1125 Acting as scribe for:MARTI CAVAZOS MD ED General - General Chief Complaint: Abscess Stated Complaint: ABSCESS Time Seen by Provider: 06/04/20 11:08 Primary Care Provider: AICHA HERNANDEZ DO [Primary Care Provider] - Follow up as needed Information source: Patient Notes: This 40 year old male patient presents to the emergency department today with complaints of a possible abscess to his right upper thigh for the past x2 days. Patient states it is spreading, painful, and denies drainage. Patient reports history of ESRD with HD (MWF), his last dialysis was yesterday without any complications, and his next appointment is tomorrow to get back on schedule. Denies history of DM. Denies any fever, chills, N/V/D, cough, sore throat, loss of taste/smell, or concern for covid. TRAVEL OUTSIDE OF THE [place] IN LAST 30 DAYS: No - Related Data Allergies/Adverse Reactions: aspirin [Aspirin] Allergy (Severe, Verified 11/03/19 11:25) Anaphylaxis Sulfa (Sulfonamide Antibiotics) Allergy (Severe, Verified 11/03/19 11:25) Anaphylaxis morphine Allergy (Verified 11/03/19 11:25) caffeine Adverse Reaction (Verified 11/03/19 11:25) vancomycin Adverse Reaction (Verified 11/03/19 11:25) Past Medical History - General Information source: Patient, [facility] Records - Social History Smoking Status: Never Smoker Cigarette use (# per day): No Frequency of alcohol use: None Family History: Arthritis, CAD, COPD, CVA, Hyperlipidemia, Hypertension, Malignancy Patient has homicidal ideation: No - Past Medical History Cardiac Medical History: Reports: Hx Hypercholesterolemia, Hx Hypertension Pulmonary Medical History: Reports: Hx Asthma, Hx Bronchitis, Hx Sleep Apnea Endocrine Medical History: Reports: Hx Hypothyroidism. Denies: Hx Diabetes Mellitus Type 1, Hx Diabetes Mellitus Type 2 Renal/ Medical History: Reports: Hx End Stage Renal Disease, Hx Hemodialysis GI Medical History: Reports: Hx Gastroesophageal Reflux Disease, Hx Hiatal Hernia, Hx Colonoscopy Musculoskeletal Medical History: Reports Hx Arthritis - hands, HIPS, Reports Hx Gout, Reports Hx Musculoskeletal Deformity - Degenerative joint disease Psychiatric Medical History: Reports: Hx Depression Traumatic Medical History: Reports: Hx Fractures - right ankle Past Surgical History: Reports: Hx Kidney (Renal Surgery), Hx Vascular Surgery - AV fistula - Immunizations Hx Diphtheria, Pertussis, Tetanus Vaccination: No Hx Pneumococcal Vaccination: 06/02/10 Review of Systems - Review of Systems Constitutional: See HPI. denies: Chills, Fever EENT: See HPI. denies: Throat pain Cardiovascular: No symptoms reported Respiratory: See HPI. denies: Cough Gastrointestinal: See HPI. denies: Diarrhea, Nausea, Vomiting Genitourinary: No symptoms reported Male Genitourinary: No symptoms reported Musculoskeletal: No symptoms reported Skin: See HPI, Other - Abscess to right upper thigh w/ pain, no drainage Hematologic/Lymphatic: No symptoms reported Neurological/Psychological: No symptoms reported -: Yes All other systems reviewed and negative Physical Exam - Vital signs Vitals: Temp Pulse Resp BP Pulse Ox 98.4 F 89 18 159/88 H 91 L 06/04/20 10:37 06/04/20 10:37 06/04/20 10:37 06/04/20 10:37 06/04/20 10:37 - General General appearance: Alert In distress: Mild - HEENT Head: Normocephalic, Atraumatic Eyes: Normal Pupils: PERRL - Respiratory Respiratory status: No respiratory distress Chest status: Nontender Breath sounds: Normal Chest palpation: Normal - Cardiovascular Rhythm: Regular Heart sounds: Normal auscultation, S1 appreciated, S2 appreciated Murmur: No - Abdominal Inspection: Morbidly Obese, Other - soft Distension: No distension Bowel sounds: Normal Tenderness: Nontender - Extremities General upper extremity: Normal inspection, Normal ROM General lower extremity: Normal ROM. No: Edema Notes: 4 cm area to the right upper medial thigh with soft tissue swelling. Area is raised 1.5 cm, warm to touch, and fluctuant. Tenderness with palpation. - Neurological Neuro grossly intact: Yes Cognition: Normal Orientation: AAOx4 Mena Coma Scale Eye Opening: Spontaneous Sikes Coma Scale Verbal: Oriented Mena Coma Scale Motor: Obeys Commands Mena Coma Scale Total: 15 Speech: Normal Sensory: Normal - Psychological Associated symptoms: Normal affect, Normal mood - Skin Location of irregularity: Other - Right upper medial thigh Irregularity with: Swelling, Tenderness, Warmth, Other - Fluctuant Course - Re-evaluation Re-evalutation: 06/04/20 12:47 Patient is status post I&D of abscess in the right. Patient is resting comfortably. - Vital Signs Vital signs: Temp Pulse Resp BP Pulse Ox 98.4 F 89 18 159/88 H 91 L 06/04/20 10:37 06/04/20 10:37 06/04/20 10:37 06/04/20 10:37 06/04/20 10:37 06/04/20 13:28 Vital signs stable - Laboratory Results Critical Laboratory Results Reviewed: No Critical Results - Radiology Results Critical Radiology Results Reviewed: No Critical Results Procedures - Incision and Drainage Right Thigh Time completed: 12:35 Type: Simple, Single Anesthetic type: 1% Lidocaine mL's of anesthetic: 10 Blade size: 11 I&D procedure: Betadine prep applied, Iodoform packing placed, Sterile dressing applied Incision Method: Incision made by scalpel Notes: 06/04/20 13:23 2ml of exudative pus with blood. 06/04/20 13:24 06/04/20 13:24 Tolerated procedure procedure well iodoform packing without any complication sterile dressing applied. Discharge - Discharge Clinical Impression: Abscess of right leg, ESRD needing dialysis Condition: Stable Disposition: HOME, SELF-CARE Instructions: Abscess ([facility]), Post Incision and Drainage Additional Instructions: Abscess You have an abscess (boil). This a pus-forming infection, usually due to staph. Some boils may be left to drain on their own, but most require lancing. From the time the tender lump first appears, it may be three or four days before the abscess is ready to kelsey. Local heat and rest help at this stage of treatment. An antibiotic may prevent spread of the infection. Once the abscess is opened, packing may be placed into it. This is done so pus is not sealed inside by premature closure of the cavity. The packing will be removed at your follow-up visit or you may be advised to remove it yourself at home. Sometimes this packing must be replaced a few times during healing. The wound will heal with surprisingly little scar. Depending on the size and location of an abscess, healing can take one to four weeks. You may shower and wash the area around the incision site two or three times a day. Antibiotics may be prescribed, but are usually not necessary after an abscess has been drained. If you develop fever, chilling, worsening pain, or increasing swelling in the area, call the doctor or return immediately \Packing removal in 2 days. Recommend you begin Tylenol 1000 mg twice a day if needed for pain. Prescriptions: Clindamycin HCl 300 mg PO QID #40 capsule Referrals: AICHA HERNANDEZ, [Primary Care Provider] - Follow up as needed I personally performed the services described in the documentation, reviewed and edited the documentation which was dictated to the scribe in my presence, and it accurately records my words and actions.
[2020-06-04 13:56] VITALS: BP 160/92
== END 2020-06-04 13:56 | disposition home or self-care (01) ==
LOC: ER 10:30
DX: L02.415 Cutaneous abscess of right lower limb (principal); I12.0 Hypertensive chronic kidney disease with stage 5 chronic kidney disease or end stage renal disease; N18.6 End stage renal disease; E78.00 Pure hypercholesterolemia, unspecified; Z99.2 Dependence on renal dialysis
CPT/HCPCS: 99283; 87070; 87205; 87075; 87077; 10060; A9270; J3490; 87186

== ENCOUNTER 2020-06-09 20:40 | Emergency (ER) | payer MEDICARE, MEDICAID ==
[2020-06-09 20:58] VITALS: BP 147/99
--- NOTE | 2020-06-09 21:23 | ER Document Report ---
ED Medical Screen (RME) - General Chief Complaint: Post Surgical Pain Stated Complaint: POST OP SURGERY PAIN Time Seen by Provider: 06/09/20 21:17 Primary Care Provider: AICHA HERNANDEZ DO [Primary Care Provider] - Follow up as needed Mode of Arrival: Wheelchair Notes: HPI; 40-year-old male presents the emergency room for wound check. States he had an abscess on his right inner thigh that was lanced and drained 5 days ago. States some of the packing has come out he is unsure if there is still packing in there. States he is taking his antibiotics as prescribed. States it has gotten bigger with increased erythema and pain. No outside follow-up. Denies fevers PE: Alert and oriented x3. Lungs: Clear to auscultation without rales rhonchi wheezes. Heart: Regular rate rhythm without murmurs, rubs, gallops. Unable to assess abscess in triage. I have greeted and performed a rapid initial assessment of this patient. A comprehensive ED assessment and evaluation of the patient, analysis of test results and completion of the medical decision making process will be conducted by additional ED providers. I have specifically instructed the patient or family members with the patient to immediately return to any nursing staff should anything change in the patient's condition or with their chief complaint. TRAVEL OUTSIDE OF THE [place] IN LAST 30 DAYS: No - Related Data Allergies/Adverse Reactions: aspirin [Aspirin] Allergy (Severe, Verified 06/08/20 10:17) Anaphylaxis Sulfa (Sulfonamide Antibiotics) Allergy (Severe, Verified 06/08/20 10:17) Anaphylaxis morphine Allergy (Verified 06/08/20 10:17) caffeine Adverse Reaction (Verified 06/08/20 10:17) vancomycin Adverse Reaction (Verified 06/08/20 10:17) Home Medications: Percocet. synthroid. Atenolol. Allopurinol. Omeprazole Past Medical History - Social History Chew tobacco use (# tins/day): No Frequency of alcohol use: None Drug Abuse: None - Past Medical History Cardiac Medical History: Reports: Hx Hypercholesterolemia, Hx Hypertension Denies: Hx Coronary Artery Disease, Hx Heart Attack Pulmonary Medical History: Reports: Hx Asthma, Hx Sleep Apnea Denies: Hx Bronchitis, Hx COPD, Hx Pneumonia Neurological Medical History: Denies: Hx Cerebrovascular Accident, Hx Seizures, Hx Parkinson's Disease Endocrine Medical History: Reports: Hx Hypothyroidism. Denies: Hx Diabetes Mellitus Type 1, Hx Diabetes Mellitus Type 2 Renal/ Medical History: Reports: Hx End Stage Renal Disease, Hx Hemodialysis. Denies: Hx Peritoneal Dialysis GI Medical History: Reports: Hx Gastroesophageal Reflux Disease, Hx Hiatal Hernia, Hx Colonoscopy Musculoskeltal Medical History: Reports Hx Arthritis, Reports Hx Gout, Reports Hx Musculoskeletal Deformity - Degenerative joint disease Psychiatric Medical History: Reports: Hx Depression Traumatic Medical History: Reports: Hx Fractures - right ankle Past Surgical History: Reports: Hx Kidney (Renal Surgery), Hx Vascular Surgery - AV fistula - Immunizations Hx Diphtheria, Pertussis, Tetanus Vaccination: No Physical Exam - Vital signs Vitals: Temp Pulse Resp BP Pulse Ox 98.2 F 83 20 147/99 H 93 06/09/20 20:55 06/09/20 20:55 06/09/20 20:55 06/09/20 20:55 06/09/20 20:55 Course - Vital Signs Vital signs: Temp Pulse Resp BP Pulse Ox 98.2 F 83 20 147/99 H 93 06/09/20 20:55 06/09/20 20:55 06/09/20 20:55 06/09/20 20:55 06/09/20 20:55 Doctor's Discharge - Discharge Referrals: AICHA HERNANDEZ DO [Primary Care Provider] - Follow up as needed
== END 2020-06-09 22:20 | disposition left against medical advice (07) ==
LOC: ER 20:40
DX: G89.18 Other acute postprocedural pain (principal); L02.415 Cutaneous abscess of right lower limb; I10 Essential (primary) hypertension; J45.909 Unspecified asthma, uncomplicated; E03.9 Hypothyroidism, unspecified; Z79.899 Other long term (current) drug therapy; Z79.891 Long term (current) use of opiate analgesic; Z87.892 Personal history of anaphylaxis; Z88.8 Allergy status to other drugs, medicaments and biological substances; Z88.2 Allergy status to sulfonamides; Z88.6 Allergy status to analgesic agent; Z88.5 Allergy status to narcotic agent; Z53.20 Procedure and treatment not carried out because of patient's decision for unspecified reasons
CPT/HCPCS: 99281

== ENCOUNTER 2020-06-10 11:59 | Emergency (ER) | payer MEDICARE, MEDICAID ==
[2020-06-10 12:26] VITALS: BP 149/88
--- NOTE | 2020-06-10 12:51 | ER Document Report ---
ED Medical Screen (RME) - General Chief Complaint: Abscess Recheck Stated Complaint: ABSCESS RECHECK Time Seen by Provider: 06/10/20 12:48 Primary Care Provider: AICHA HERNANDEZ DO [Primary Care Provider] - Follow up as needed Notes: HPI: 40-year-old male who is a hemodialysis patient presenting for reevaluation of an abscess on the right thigh. Patient had the area incised and drained 5 days ago. Patient states that the packing came out 2 days ago but he feels like the area has become more hardened around the opening and wanted it reevaluated. No fevers. PHYSICAL EXAMINATION: Limited exam in triage secondary to patient being fully dressed. Will have patient moved to a room for examination of the area in question I have greeted and performed a rapid initial assessment of this patient. A comprehensive ED assessment and evaluation of the patient, analysis of test results and completion of medical decision making process will be conducted by an additional ED providers. Please note that clinical decision making for this patient was made during the 2019 pandemic of novel coronavirus which caused a significant strain on the healthcare system including at this particular facility. Criteria for admission discharge and level of care decisions as well as treatment decisions have necessarily changed TRAVEL OUTSIDE OF THE [place] IN LAST 30 DAYS: No - Related Data Allergies/Adverse Reactions: aspirin [Aspirin] Allergy (Severe, Verified 06/10/20 12:44) Anaphylaxis Sulfa (Sulfonamide Antibiotics) Allergy (Severe, Verified 06/10/20 12:44) Anaphylaxis morphine Allergy (Verified 06/10/20 12:44) caffeine Adverse Reaction (Verified 06/10/20 12:44) vancomycin Adverse Reaction (Verified 06/10/20 12:44) Past Medical History - Past Medical History Cardiac Medical History: Reports: Hx Hypercholesterolemia, Hx Hypertension Denies: Hx Coronary Artery Disease, Hx Heart Attack Pulmonary Medical History: Reports: Hx Asthma, Hx Sleep Apnea Denies: Hx Bronchitis, Hx COPD, Hx Pneumonia Neurological Medical History: Denies: Hx Cerebrovascular Accident, Hx Seizures, Hx Parkinson's Disease Endocrine Medical History: Reports: Hx Hypothyroidism. Denies: Hx Diabetes Mellitus Type 1, Hx Diabetes Mellitus Type 2 Renal/ Medical History: Reports: Hx End Stage Renal Disease, Hx Hemodialysis. Denies: Hx Peritoneal Dialysis GI Medical History: Reports: Hx Gastroesophageal Reflux Disease, Hx Hiatal Hernia, Hx Colonoscopy Musculoskeltal Medical History: Reports Hx Arthritis, Reports Hx Gout, Reports Hx Musculoskeletal Deformity - Degenerative joint disease Psychiatric Medical History: Reports: Hx Depression Traumatic Medical History: Reports: Hx Fractures - right ankle Past Surgical History: Reports: Hx Kidney (Renal Surgery), Hx Vascular Surgery - AV fistula - Immunizations Hx Diphtheria, Pertussis, Tetanus Vaccination: No Physical Exam - Vital signs Vitals: Temp Pulse Resp BP Pulse Ox 98.2 F 76 24 H 149/88 H 95 06/10/20 12:24 06/10/20 12:24 06/10/20 12:24 06/10/20 12:24 06/10/20 12:24 Course - Vital Signs Vital signs: Temp Pulse Resp BP Pulse Ox 98.2 F 76 24 H 149/88 H 95 06/10/20 12:24 06/10/20 12:24 06/10/20 12:24 06/10/20 12:24 06/10/20 12:24 Doctor's Discharge - Discharge Referrals: AICHA HERNANDEZ DO [Primary Care Provider] - Follow up as needed
--- NOTE | 2020-06-10 13:14 | ER Document Report ---
ED Wound - General Chief Complaint: Wound Recheck Stated Complaint: ABSCESS RECHECK Time Seen by Provider: 06/10/20 12:48 Primary Care Provider: AICHA HERNANDEZ DO [Primary Care Provider] - Follow up as needed Notes: HPI: 40-year-old male who presents today for wound care check. Patient states he had an abscess incision and drainage to his right inner thigh last week. He states he has been taking his clindamycin. He is completing his dialysis sessions. He denies a history of diabetes. He states to me that the pain is much improved and the swelling has much decreased. He is concerned given that the packing "fell out" when he was doing the wound care dressing change around 4 days ago. He is unsure whether or not there was more packing placed that did not get removed. He denies any fevers, vomiting, or other complaints. ROS: See HPI Reviewed vital signs and nursing note as charted by RN. PHYSICAL EXAM: CONSTITUTIONAL: Alert and oriented and responds appropriately to questions. Well-appearing; well-nourished BACK: The back appears normal and is non-tender to palpation EXT: Normal ROM in all joints; non-tender to palpation; no edema SKIN: Patient has an old I&D scar present with no obvious drainage. Some induration surrounding the incision wound with no fluctuance with very minimal tenderness. Patient states it is "much smaller" than it was previously TRAVEL OUTSIDE OF THE [place] IN LAST 30 DAYS: No - Related Data Allergies/Adverse Reactions: aspirin [Aspirin] Allergy (Severe, Verified 06/10/20 12:44) Anaphylaxis Sulfa (Sulfonamide Antibiotics) Allergy (Severe, Verified 06/10/20 12:44) Anaphylaxis morphine Allergy (Verified 06/10/20 12:44) caffeine Adverse Reaction (Verified 06/10/20 12:44) vancomycin Adverse Reaction (Verified 06/10/20 12:44) Past Medical History - Social History Smoking Status: Never Smoker Family History: Arthritis, CAD, COPD, CVA, Hyperlipidemia, Hypertension, Malignancy - Past Medical History Cardiac Medical History: Reports: Hx Hypercholesterolemia, Hx Hypertension Denies: Hx Coronary Artery Disease, Hx Heart Attack Pulmonary Medical History: Reports: Hx Asthma, Hx Sleep Apnea Denies: Hx Bronchitis, Hx COPD, Hx Pneumonia Neurological Medical History: Denies: Hx Cerebrovascular Accident, Hx Seizures, Hx Parkinson's Disease Endocrine Medical History: Reports: Hx Hypothyroidism. Denies: Hx Diabetes Mellitus Type 1, Hx Diabetes Mellitus Type 2 Renal/ Medical History: Reports: Hx End Stage Renal Disease, Hx Hemodialysis. Denies: Hx Peritoneal Dialysis GI Medical History: Reports: Hx Gastroesophageal Reflux Disease, Hx Hiatal Hernia, Hx Colonoscopy Musculoskeletal Medical History: Reports Hx Arthritis, Reports Hx Gout, Reports Hx Musculoskeletal Deformity - Degenerative joint disease Psychiatric Medical History: Reports: Hx Depression Traumatic Medical History: Reports: Hx Fractures - right ankle Past Surgical History: Reports: Hx Kidney (Renal Surgery), Hx Vascular Surgery - AV fistula - Immunizations Hx Diphtheria, Pertussis, Tetanus Vaccination: No Hx Pneumococcal Vaccination: 06/02/10 Physical Exam - Vital signs Vitals: Temp Pulse Resp BP Pulse Ox 98.2 F 76 24 H 149/88 H 95 06/10/20 12:24 06/10/20 12:24 06/10/20 12:24 06/10/20 12:24 06/10/20 12:24 Course - Re-evaluation Re-evalutation: 06/10/20 13:13 Given the above history and physical examination, with a long string of wound packing removed by the patient during this week, I do not believe that 2 different packing strands were placed. I do not detect any palpable packing. Patient states that the wound is much smaller than it was before and he denies any fevers or vomiting. He states it is much less painful when he walks. 06/10/20 13:41 Initial provider who did the abscess I&D saw the patient. He believes that the wound is much improved. From culture results that were obtained at the incision and drainage site showed that the bacteria isolated is resistant to clindamycin and susceptible to Levaquin. I will provide a 7-day course and discharge the patient home with strict return precautions and follow-up. - Vital Signs Vital signs: Temp Pulse Resp BP Pulse Ox 98.2 F 76 24 H 149/88 H 95 06/10/20 12:24 06/10/20 12:24 06/10/20 12:24 06/10/20 12:24 06/10/20 12:24 - Laboratory Results Critical Laboratory Results Reviewed: No Critical Results - Radiology Results Critical Radiology Results Reviewed: No Critical Results Discharge - Discharge Clinical Impression: Abscess Condition: Good Disposition: HOME, SELF-CARE Additional Instructions: Come back immediately for any increased pain, swelling, redness, fever, vomiting, or any other acute problems. Please follow-up with your primary care physician for reassessment as discussed. You should change her antibiotic from the clindamycin to the Levaquin as we have prescribed. Prescriptions: Levofloxacin [Levaquin 500 mg Tablet] 500 mg PO DAILY #10 tablet Referrals: AICHA HERNANDEZ DO [Primary Care Provider] - Follow up as needed
[2020-06-10] MEDS ORDERED: LEVOFLOXACIN 500 MG TABLET PO ONE (13:47)
== END 2020-06-10 13:55 | disposition home or self-care (01) ==
LOC: ER 11:59
DX: L02.211 Cutaneous abscess of abdominal wall (principal); E78.00 Pure hypercholesterolemia, unspecified; I12.0 Hypertensive chronic kidney disease with stage 5 chronic kidney disease or end stage renal disease; N18.6 End stage renal disease; Z99.2 Dependence on renal dialysis; Z88.6 Allergy status to analgesic agent; Z88.2 Allergy status to sulfonamides; Z88.3 Allergy status to other anti-infective agents
CPT/HCPCS: 99283; A9270